=== PATIENT | male | born 1950 | race Caucasian/White ===

== ENCOUNTER 2019-04-27 17:31 | Inpatient (IN) ==
--- NOTE | 2019-04-27 17:47 | Emergency Department Note ---
Recheck HPI - General Chief Complaint: Recheck/Abnormal Lab/Rx Stated Complaint: Elevated creatnine Time Seen by Provider: 04/27/19 17:45 Source: patient, EMS Mode of arrival: EMS Limitations: no limitations - History of Present Illness HPI Narrative: 68-year-old male in ED via EMS from [facility] due to elevated creatinine of 8.1 after blood draw today. Patient states he has had no changes, no fatigue, no abdominal pain, no back pain, no headache, bowel and bladder working, had bowel movement this afternoon and urinates 4-5 times a day as he states he is on Lasix. Patient does not have shortness of breath or chest pain. MD complaint: abnormal lab Symptoms Since Prior Visit: no new symptoms Associated symptoms: none - Related Data Home Medications Medication Instructions Recorded Confirmed Carvedilol [Coreg] 12.5 mg PO BID 11/17/15 04/27/19 cholecalciferol (vitamin D3) 2,000 1,000 unit PO QDAY 02/25/16 04/27/19 unit capsule cyanocobalamin (vit B-12) 1,000 500 mcg PO QDAY 02/25/16 04/27/19 mcg tablet cyclosporine 0.05 % eye drops in a 2 drp OPHTHALMIC DAILY 02/25/16 04/28/19 dropperette oxygen 5 units INHALATION QHS 02/25/16 10/14/18 ropinirole 0.25 mg tablet 1 mg PO BID tab 02/25/16 04/27/19 pen needle, diabetic See Dose Instructions .ROUTE 02/26/16 10/14/18 .MEDSUPPLY MDD 45 units Allopurinol [Zyloprim] 200 mg PO QAM 10/09/18 04/27/19 Bisacodyl [Dulcolax] 10 mg CA DAILYP PRN 10/09/18 04/27/19 Docusate Sodium [Colace] 100 mg PO BID 10/09/18 04/27/19 Magnesium Hydroxide [Milk of 30 ml PO DAILYP PRN 10/09/18 04/27/19 Magnesia] Na Phos,M-B/Na Phos,Di-Ba [Fleets 1 dose CA DAILYP PRN 10/09/18 04/28/19 Adult] RX: Atorvastatin [Lipitor] 5 mg PO QPM 10/09/18 04/27/19 RX: Gabapentin [Neurontin] 600 mg PO TID 10/09/18 04/27/19 RX: Memantine [Namenda] 10 mg PO BID 10/09/18 04/27/19 Ferrous Sulfate/Vit C/FA [Folitab 1 each PO DAILY 10/14/18 04/27/19 500 Caplet] Pantoprazole Sodium [Protonix] 20 mg PO DAILY 10/14/18 04/28/19 Potassium Chloride [K-Tab ER] 20 meq PO DAILY 10/14/18 04/27/19 insulin detemir (U- 100) 100 2 unit SUB-Q BID ml 12/19/18 04/27/19 unit/mL subcutaneous solution lansoprazole 30 mg delayed 30 mg PO BID tab 12/19/18 04/27/19 release,disintegrating tablet misoprostol 100 mcg tablet 100 mcg PO QAM tab 12/19/18 04/27/19 multivitamin tablet 1 tab PO QAM 12/19/18 04/27/19 sertraline 100 mg tablet 150 mg PO QHS tab 12/19/18 04/27/19 Fexofenadine 60 mg PO QAM 04/27/19 04/27/19 Lisinopril [Zestril] 2.5 mg PO QAM 04/27/19 04/27/19 Loteprednol Etabonate [Lotemax] 1 drp OU QID 04/27/19 04/27/19 Nepafenac [Ilevro] 1 drp OU QAM 04/27/19 04/27/19 RX: Melatonin 10 mg PO QHS 04/27/19 04/28/19 Warfarin [Coumadin] 2.5 mg PO DAILY 04/27/19 04/27/19 clonazePAM [KlonoPIN] 0.25 mg PO QAM 04/27/19 04/27/19 hydrOXYzine [Atarax] 25 mg PO QHS 04/27/19 04/27/19 traZODone HCL [Trazodone HCl] 50 mg PO QPM 04/27/19 04/27/19 Fexofenadine [Ophelia] 60 mg PO DAILY 04/28/19 04/28/19 Furosemide [Lasix] 40 mg PO BID 04/28/19 04/28/19 Glycerin/Propylene Glycol 30 ml OP DAILY 04/28/19 04/28/19 [Artificial Tears Drops] Previous Rx's Medication Instructions Recorded insulin aspart (U-100) 100 unit/mL 10 unit SUB-Q ONCE #15 ml 07/08/16 (3 mL) subcutaneous pen Allergies Allergy/AdvReac Type Severity Reaction Status Date / Time morphine Allergy Mild Rash Verified 04/27/19 20:19 Tizanidine Allergy Unknown Unknown Verified 04/27/19 20:19 Review of Systems All systems ED: reviewed and negative except as stated. Past Medical History - Past Medical History PMF Narrative: All Active Problems (Last Updated 03/08/19 @ 13:19 by Luis Miguel Whitt DO) Eczema (Acute) Cerebral atrophy, mild (Acute) Anticoagulated on Coumadin (Chronic) Atrial fibrillation (Chronic) Dilated cardiomyopathy (Chronic) DMII (diabetes mellitus, type 2) (Chronic) Obstructive sleep apnea (Chronic) CHF (congestive heart failure), NYHA class II (Chronic) Cerebral artery occlusion with cerebral infarction (Chronic) Chronic kidney disease, stage III (moderate) (Chronic) CKD (chronic kidney disease) (Chronic) ICD (implantable cardioverter-defibrillator) in place (Chronic 10/14/10) Hypertension, essential (Chronic) Hyperlipidemia (Chronic) Obesity, morbid (Chronic) Alzheimer's dementia (Chronic) Gout (Chronic) Tachycardia (Chronic) Shortness of breath (Chronic) Neuropathy (Chronic) Hypotension (Chronic) Lower extremity edema (Chronic) Osteoarthritis (Chronic) Dizzy spells (Chronic) Depression (Chronic) Deafness (Chronic) DDD (degenerative disc disease), lumbar (Chronic) Cognitive impairment (Chronic) Anxiety (Chronic) Dyspnea on exertion (Chronic) Encounter for chronic pain management (Chronic) Osteoporosis (Chronic) Lumbar disc prolapse with compression radiculopathy (Chronic) Coronary atherosclerosis (Chronic) Peripheral vertigo (Chronic) Paresis of lower extremity (Chronic) Persistent insomnia (Chronic) Recurrent major depression (Chronic) Restless leg syndrome (Chronic) Recurrent vertigo (Chronic) Recurrent falls (Chronic) 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/12) Sinusitis, chronic (Chronic) Arthritis (Chronic) Acid reflux (Chronic) History of tobacco use (Chronic) Past Surgical History H/O carpal tunnel repair (Chronic) H/O colonoscopy (Chronic 11/20/12) H/O gastric bypass (Chronic 07/28/15) H/O right heart catheterization (Chronic 05/17/13) History of arthroscopy of both knees (Chronic) History of cardioversion (Chronic) History of cholecystectomy (Chronic) History of implantable cardioverter-defibrillator (ICD) placement (Chronic 10/25/10) History of left heart catheterization (Chronic 07/16/13) History of nasal surgery (Chronic 11/22/10) History of tonsillectomy and adenoidectomy (Chronic) Hx of cataract surgery (Chronic) S/P tendon repair (Chronic) Family History Father Arthritis Colon cancer Leukemia Mother Arthritis Family/Other Arthritis Medical history: Reports: CHF, chronic anticoagulation, CVA, dementia, DM, renal disease Surgical history ED: Reports: non-contributory - Social History smoking status: Never smoker Alcohol use: Reports: Unknown Drug use: Reports: none, unknown Physical Exam Limitations: no limitations General appearance: alert, in no apparent distress Head: atraumatic, normocephalic, normal inspection Eye: Present: normal appearance, PERRL. Absent: conjunctival injection ENT: Present: mucous membranes moist, normal external ear exam. Absent: nasal congestion Neck: Present: normal inspection. Absent: tenderness, lymphadenopathy Chest: Present: normal inspection, symmetric chest wall rise. Absent: tenderness Respiratory: Present: normal lung sounds bilaterally. Absent: respiratory distress, rales/crackles, wheezes, stridor Cardiovascular: Present: regular rate, normal rhythm. Absent: systolic murmur, diastolic murmur Abdominal: Present: soft, hypoactive bowel sounds. Absent: distention, tenderness, guarding, rebound, rigidity Extremities: Present: normal inspection. Absent: pedal edema Back: Present: normal inspection Neurological: Present: alert, oriented X3 Psychiatric: Present: normal affect, normal mood. Absent: depressed, agitated, anxious, flat affect Skin: Present: warm, dry, intact, normal color. Absent: cool, diaphoretic Course Vital Signs Temperature 97.7 F 04/27/19 17:32 Pulse Rate 79 04/27/19 17:32 Respiratory Rate 18 04/27/19 17:32 Blood Pressure 102/66 04/27/19 17:32 Pulse Oximetry (%) 95 04/27/19 17:32 Temperature 98.8 F 04/28/19 16:01 Pulse Rate 79 04/28/19 12:02 Respiratory Rate 20 04/28/19 08:01 Blood Pressure 126/89 04/28/19 16:01 Pulse Oximetry (%) 99 04/28/19 12:02 Recheck/Abnormal Lab/Rx - MDM Narrative Medical decision making narrative: Pt was provided 1 liter normal saline. Pt states he does produce urine 4-5 times a day due to his lasix. Patient's potassium 4.7, BUN 82 which is increased from 43 (4 months ago), creatinine 7.9 which is increased from 1.9 glucose 242, POC PT/INR 86.9/8.0 increased from 53.6/4.2 two days ago. Contacted Dr. Hagen who advised patient should be admitted, visit with hospitalist services, hold diuretics and FLOR inhibitor's. And he would consult. Advised this is 's patient and he advised to hydrate, hold diuretics and FLOR inhibitor's, no need to dialysis yet. Hospitalist to attend to PT/INR. He is available for consult. Consulted with who advised CT abd/pelvis and U/A to look into kidney's. - Lab Data Lab results reviewed: Yes I reviewed the patient's lab results. Result diagrams: 04/28/19 03:30 04/28/19 03:30 Lab Results 04/27/19 04/27/19 04/27/19 Range/Units 17:51 17:51 17:51 WBC 9.1 (4.5-11.0) K/mcL RBC 3.60 L (4.50-5.90) M/mcL Hgb 11.5 L (13.5-16.5) g/dL Hct 34.9 L (41.0-55.0) % MCV 97.0 (80.0-100.0) fL MCH 31.8 (26.0-34.0) pg MCHC 32.8 (31.0-36.0) g/dL RDW 15.6 H (11.5-14.5) % Plt Count 288 (140-440) K/mcL MPV 7.8 (7.4-10.4) fL Gran % 75.5 (38.0-78.0) % Lymph % (Auto) 13.4 L (15.5-49.0) % [place] % (Auto) 7.2 (1.0-12.0) % Eos % (Auto) 3.7 (0.0-7.0) % Baso % (Auto) 0.2 (0.0-2.0) % Gran # 6.9 (1.8-8.0) K/mcL Lymph # (Auto) 1.2 L (1.5-4.8) K/mcL [place] # (Auto) 0.7 (0.1-0.9) K/mcL Eos # (Auto) 0.3 (0.0-0.7) K/mcL Baso # (Auto) 0 (0.0-0.3) K/mcL Total Counted Seg Neutrophils % (38-78) % Band Neutrophils % Lymphocytes % (15-49) % Monocytes % (Manual) (1-12) % Eosinophils % (Manual) (0-7) % Platelet Estimate (NORMAL) RBC Morphology (NORMAL) ESR (0-15) mm/hr POC PT (11.9-14.5) sec PT (11.9-14.5) sec POC INR (0.9-1.2) INR (0.9-1.1) VBG Lactic Acid 1.1 (0.5-2.0) mmol/L Sodium 135 (133-145) mmol/L Potassium 4.7 (3.3-5.1) mmol/L Chloride 103 (96-108) mmol/L Carbon Dioxide 13 L (22-30) mmol/L Anion Gap 19.0 H (8-16) BUN 82 H (8-23) mg/dl Creatinine 7.9 H* (0.7-1.2) mg/dl GFR Calculation 6 Glucose 242 H (70-105) mg/dL Calcium 8.7 (8.6-10.4) mg/dl Total Bilirubin 0.3 (0.0-1.0) mg/dL AST 15 (0-37) U/l ALT 15 (0-40) U/l Alkaline Phosphatase 115 (39-117) U/L Total Protein 7.2 (5.9-8.4) gm/dL Albumin 3.3 (3.2-5.2) gm/dL Globulin 3.9 H (2.2-3.7) gm/dL Albumin/Globulin Ratio 0.8 L (1.0-2.3) Urine Color Urine Appearance Urine pH (5.0-9.0) Ur Specific [place] (1.003-1.030) Urine Protein (NEG) mg/dL Urine Glucose (UA) (NEG) mg/dL Urine Ketones (NEG) mg/dL Urine Occult Blood (<5) suzan/mcL Urine Nitrate (NEG) Urine Bilirubin (NEG) mg/dL Urine Urobilinogen (NEG) mg/dL Ur Leukocyte Esterase (NEG) /uL Urine RBC (0-1) /hpf Urine WBC (0-4) /hpf Ur Squamous Epith Cells (0-4) /hpf Urine Bacteria (0) /hpf Hyaline Casts (0-2) /lpf Urine Mucus (0) /hpf Ur Culture Indicated? Urine Eosinophils Digoxin ng/mL Digoxin Dose Digox Last Dose Time 04/27/19 04/27/19 04/27/19 Range/Units 17:51 17:51 19:36 WBC (4.5-11.0) K/mcL RBC (4.50-5.90) M/mcL Hgb (13.5-16.5) g/dL Hct (41.0-55.0) % MCV (80.0-100.0) fL MCH (26.0-34.0) pg MCHC (31.0-36.0) g/dL RDW (11.5-14.5) % Plt Count (140-440) K/mcL MPV (7.4-10.4) fL Gran % (38.0-78.0) % Lymph % (Auto) (15.5-49.0) % [place] % (Auto) (1.0-12.0) % Eos % (Auto) (0.0-7.0) % Baso % (Auto) (0.0-2.0) % Gran # (1.8-8.0) K/mcL Lymph # (Auto) (1.5-4.8) K/mcL [place] # (Auto) (0.1-0.9) K/mcL Eos # (Auto) (0.0-0.7) K/mcL Baso # (Auto) (0.0-0.3) K/mcL Total Counted Seg Neutrophils % (38-78) % Band Neutrophils % Lymphocytes % (15-49) % Monocytes % (Manual) (1-12) % Eosinophils % (Manual) (0-7) % Platelet Estimate (NORMAL) RBC Morphology (NORMAL) ESR (0-15) mm/hr POC PT > 66.0 H (11.9-14.5) sec PT 45.1 H (11.9-14.5) sec POC INR > 6.0 H* (0.9-1.2) INR 4.9 H (0.9-1.1) VBG Lactic Acid (0.5-2.0) mmol/L Sodium (133-145) mmol/L Potassium (3.3-5.1) mmol/L Chloride (96-108) mmol/L Carbon Dioxide (22-30) mmol/L Anion Gap (8-16) BUN (8-23) mg/dl Creatinine (0.7-1.2) mg/dl GFR Calculation Glucose (70-105) mg/dL Calcium (8.6-10.4) mg/dl Total Bilirubin (0.0-1.0) mg/dL AST (0-37) U/l ALT (0-40) U/l Alkaline Phosphatase (39-117) U/L Total Protein (5.9-8.4) gm/dL Albumin (3.2-5.2) gm/dL Globulin (2.2-3.7) gm/dL Albumin/Globulin Ratio (1.0-2.3) Urine Color Urine Appearance Urine pH (5.0-9.0) Ur Specific [place] (1.003-1.030) Urine Protein (NEG) mg/dL Urine Glucose (UA) (NEG) mg/dL Urine Ketones (NEG) mg/dL Urine Occult Blood (<5) suzan/mcL Urine Nitrate (NEG) Urine Bilirubin (NEG) mg/dL Urine Urobilinogen (NEG) mg/dL Ur Leukocyte Esterase (NEG) /uL Urine RBC (0-1) /hpf Urine WBC (0-4) /hpf Ur Squamous Epith Cells (0-4) /hpf Urine Bacteria (0) /hpf Hyaline Casts (0-2) /lpf Urine Mucus (0) /hpf Ur Culture Indicated? Urine Eosinophils Digoxin < 0.3 ng/mL Digoxin Dose Not Reportable Digox Last Dose Time Not Reportable 04/27/19 04/27/19 04/27/19 Range/Units 20:40 20:40 21:05 WBC (4.5-11.0) K/mcL RBC (4.50-5.90) M/mcL Hgb (13.5-16.5) g/dL Hct (41.0-55.0) % MCV (80.0-100.0) fL MCH (26.0-34.0) pg MCHC (31.0-36.0) g/dL RDW (11.5-14.5) % Plt Count (140-440) K/mcL MPV (7.4-10.4) fL Gran % (38.0-78.0) % Lymph % (Auto) (15.5-49.0) % [place] % (Auto) (1.0-12.0) % Eos % (Auto) (0.0-7.0) % Baso % (Auto) (0.0-2.0) % Gran # (1.8-8.0) K/mcL Lymph # (Auto) (1.5-4.8) K/mcL [place] # (Auto) (0.1-0.9) K/mcL Eos # (Auto) (0.0-0.7) K/mcL Baso # (Auto) (0.0-0.3) K/mcL Total Counted Seg Neutrophils % (38-78) % Band Neutrophils % Lymphocytes % (15-49) % Monocytes % (Manual) (1-12) % Eosinophils % (Manual) (0-7) % Platelet Estimate (NORMAL) RBC Morphology (NORMAL) ESR 76 H (0-15) mm/hr POC PT (11.9-14.5) sec PT (11.9-14.5) sec POC INR (0.9-1.2) INR (0.9-1.1) VBG Lactic Acid (0.5-2.0) mmol/L Sodium (133-145) mmol/L Potassium (3.3-5.1) mmol/L Chloride (96-108) mmol/L Carbon Dioxide (22-30) mmol/L Anion Gap (8-16) BUN (8-23) mg/dl Creatinine (0.7-1.2) mg/dl GFR Calculation Glucose (70-105) mg/dL Calcium (8.6-10.4) mg/dl Total Bilirubin (0.0-1.0) mg/dL AST (0-37) U/l ALT (0-40) U/l Alkaline Phosphatase (39-117) U/L Total Protein (5.9-8.4) gm/dL Albumin (3.2-5.2) gm/dL Globulin (2.2-3.7) gm/dL Albumin/Globulin Ratio (1.0-2.3) Urine Color Yellow Urine Appearance Clear Urine pH 5.0 (5.0-9.0) Ur Specific [place] 1.010 (1.003-1.030) Urine Protein Neg (NEG) mg/dL Urine Glucose (UA) Negative (NEG) mg/dL Urine Ketones Neg (NEG) mg/dL Urine Occult Blood Trace A (<5) suzan/mcL Urine Nitrate Neg (NEG) Urine Bilirubin Neg (NEG) mg/dL Urine Urobilinogen Norm (NEG) mg/dL Ur Leukocyte Esterase Trace (NEG) /uL Urine RBC 2 H (0-1) /hpf Urine WBC 19 H (0-4) /hpf Ur Squamous Epith Cells < 1 (0-4) /hpf Urine Bacteria Mod A (0) /hpf Hyaline Casts 4 H (0-2) /lpf Urine Mucus Few (0) /hpf Ur Culture Indicated? Yes Urine Eosinophils 1 % Digoxin ng/mL Digoxin Dose Digox Last Dose Time 04/27/19 Range/Units 21:10 WBC (4.5-11.0) K/mcL RBC (4.50-5.90) M/mcL Hgb (13.5-16.5) g/dL Hct (41.0-55.0) % MCV (80.0-100.0) fL MCH (26.0-34.0) pg MCHC (31.0-36.0) g/dL RDW (11.5-14.5) % Plt Count (140-440) K/mcL MPV (7.4-10.4) fL Gran % (38.0-78.0) % Lymph % (Auto) (15.5-49.0) % [place] % (Auto) (1.0-12.0) % Eos % (Auto) (0.0-7.0) % Baso % (Auto) (0.0-2.0) % Gran # (1.8-8.0) K/mcL Lymph # (Auto) (1.5-4.8) K/mcL [place] # (Auto) (0.1-0.9) K/mcL Eos # (Auto) (0.0-0.7) K/mcL Baso # (Auto) (0.0-0.3) K/mcL Total Counted 100 Seg Neutrophils % 76 (38-78) % Band Neutrophils % Not Reportable Lymphocytes % 17 (15-49) % Monocytes % (Manual) 6 (1-12) % Eosinophils % (Manual) 1 (0-7) % Platelet Estimate Normal (NORMAL) RBC Morphology Normal (NORMAL) ESR (0-15) mm/hr POC PT (11.9-14.5) sec PT (11.9-14.5) sec POC INR (0.9-1.2) INR (0.9-1.1) VBG Lactic Acid (0.5-2.0) mmol/L Sodium (133-145) mmol/L Potassium (3.3-5.1) mmol/L Chloride (96-108) mmol/L Carbon Dioxide (22-30) mmol/L Anion Gap (8-16) BUN (8-23) mg/dl Creatinine (0.7-1.2) mg/dl GFR Calculation Glucose (70-105) mg/dL Calcium (8.6-10.4) mg/dl Total Bilirubin (0.0-1.0) mg/dL AST (0-37) U/l ALT (0-40) U/l Alkaline Phosphatase (39-117) U/L Total Protein (5.9-8.4) gm/dL Albumin (3.2-5.2) gm/dL Globulin (2.2-3.7) gm/dL Albumin/Globulin Ratio (1.0-2.3) Urine Color Urine Appearance Urine pH (5.0-9.0) Ur Specific [place] (1.003-1.030) Urine Protein (NEG) mg/dL Urine Glucose (UA) (NEG) mg/dL Urine Ketones (NEG) mg/dL Urine Occult Blood (<5) suzan/mcL Urine Nitrate (NEG) Urine Bilirubin (NEG) mg/dL Urine Urobilinogen (NEG) mg/dL Ur Leukocyte Esterase (NEG) /uL Urine RBC (0-1) /hpf Urine WBC (0-4) /hpf Ur Squamous Epith Cells (0-4) /hpf Urine Bacteria (0) /hpf Hyaline Casts (0-2) /lpf Urine Mucus (0) /hpf Ur Culture Indicated? Urine Eosinophils Digoxin ng/mL Digoxin Dose Digox Last Dose Time - Radiology Data Radiology results reviewed: Yes I reviewed the patient's radiology results. Chest/abdomen/pelvis CT without contrast read by [facility] Impression bilateral lower lobe stranding densities and groundglass opacification, could represent atelectasis, edema or infection.: Neck air fluid levels, which is nonspecific and can be seen with enterocolitis, and ileus, or other diarrhea producing process. Nonobstructing left renal calculi. Disposition Pt seen by [employer] ATTENDANT/PA only: Yes Clinical Impression: DMII (diabetes mellitus, type 2) Qualifiers: Diabetes mellitus alf insulin use: with alf use Diabetes mellitus complication status: with kidney complications Diabetes mellitus complication detail: with chronic kidney disease Chronic kidney disease stage: stage 4 ([facility]) Qualified Code(s): E11.22 - Type 2 diabetes mellitus with diabetic chronic kidney disease Disposition: Xfer As Inpt ([facility]) Condition: Good Time of Disposition: 16:40
[2019-04-27] MEDS: 0.9 % SODIUM CHLORIDE 1,000 ML IV SCH ×2 (18:03→21:26)
[2019-04-27 18:28] LABS: Basophils # (Auto) 0 K/mcL (0.0-0.3); Basophils % (Auto) 0.2 % (0.0-2.0); Eosinophils # (Auto) 0.3 K/mcL (0.0-0.7); Eosinophils % (Auto) 3.7 % (0.0-7.0); Granulocytes % (Auto) 75.5 % (38.0-78.0); Hematocrit 34.9 % (41.0-55.0); Hemoglobin 11.5 g/dL (13.5-16.5); Lymphocytes # (Auto) 1.2 K/mcL (1.5-4.8); Lymphocytes % (Auto) 13.4 % (15.5-49.0); Mean Corpuscular HGB Conc 32.8 g/dL (31.0-36.0); Mean Platelet Volume 7.8 fL (7.4-10.4); Monocytes # (Auto) 0.7 K/mcL (0.1-0.9); Monocytes % (Auto) 7.2 % (1.0-12.0); Platelet Count 288 K/mcL (140-440); Red Cell Distribution Width 15.6 % (11.5-14.5); WBC 9.1 K/mcL (4.5-11.0)
[2019-04-27 18:48] LABS: ALT/SGPT 15 U/l (0-40); AST/SGOT 15 U/l (0-37); Albumin 3.3 gm/dL (3.2-5.2); Albumin/Globulin Ratio 0.8 (1.0-2.3); Alkaline Phosphatase 115 U/L (39-117); Bilirubin,Total 0.3 mg/dL (0.0-1.0); Blood Urea Nitrogen 82 mg/dl (8-23); Calcium 8.7 mg/dl (8.6-10.4); Carbon Dioxide 13 mmol/L (22-30); Chloride 103 mmol/L (96-108); Globulin 3.9 gm/dL (2.2-3.7); Glomerular Filtration Rate 6; Glucose 242 mg/dL (70-105)
[2019-04-27 19:42] LABS: Digoxin < 0.3 ng/mL
[2019-04-27 19:52] LABS: POC INR > 6.0 (0.9-1.2); POC Pro Time > 66.0 sec (11.9-14.5)
[2019-04-27 21:02] LABS: INR 4.9 (0.9-1.1); Prothrombin Time 45.1 sec (11.9-14.5)
[2019-04-27 21:34] LABS: Appearance,Urine CLEAR; Bacteria,Urine MOD /hpf (0); Bilirubin,Urine NEG (NEG); Color,Urine YELLOW; Culture Indicated,Urine YES; Glucose,Urine (UA) NEGATIVE (NEG); Ketones,Urine NEG (NEG); Leukocyte Esterase,Urine TRACE /uL (NEG); Mucus,Urine FEW /hpf (0); Nitrate,Urine NEG (NEG); Protein,Urine NEG (NEG); Urine Blood TRACE ery/mcL (<5); Urine Hyaline Cast 4 /lpf (0-2); Urine RBC 2 /hpf (0-1); Urine Squamous Epithelial Cell < 1 /hpf (0-4); Urine WBC 19 /hpf (0-4); Urobilinogen,Urine NORM (NEG)
[2019-04-27 21:56] LABS: Eosinophils % (Manual) 1 % (0-7); Lymphocytes % 17 % (15-49); Monocytes % (Manual) 6 % (1-12); Platelet Estimate NORMAL (NORMAL); RBC Morphology NORMAL (NORMAL); Segmented Neutrophils % 76 % (38-78)
[2019-04-27] MEDS ORDERED: 0.9 % SODIUM CHLORIDE 500 ML IV ONE (22:03)
--- NOTE | 2019-04-27 22:15 | Internal Med History&Physical ---
Medical - H&P: [facility] Patient information: Note initiated : 04/27/19 at 10:12 pm Service Date, if different from initiated Date: [] Patient: Eliezer Mahmood a 68 y/o M admitted on for Elevated creatnine. Chief Complaint: [] History of present illness: Mr. Mahmood is a 68 year old M Who was sent in from the intermediate facility for abnormal labs. His creatinine was found to be 7.9 with a BUN of 83. He is asymptomatic. Has no nausea or vomiting, no lethargy or or altered mental status of any kind. States he is urinating okay and denies any hematuria. Denies flank pain or abdominal pain. No chest pain shortness of breath. Denies new medications except for some drops for his eyes. He takes Lasix twice daily but says that has not changed recently. Denies edema his legs, states sometimes he gets swelling in his ankles but not very often. Did have a rash beginning of the month which was there for a month or so but that has resolved. In the ED he had a work-up including CT abdomen pelvis which showed no acute pathology, it was without contrast. Is acidotic with bicarb of 13. Vital signs are stable. Actiq acidosis. Urine with trace blood and hyaline casts. Urine eosinophils unremarkable Case was discussed with Dr. Capellan. Who will follow and patient started on bicarb drip. Old records report in July 2018 he was found unresponsive with a creatinine of 8 and a BUN of 90. He was flown to [place] at that time from [facility] as they did not have any ICU beds available or ability to do emergent dialysis. Patient does not recall how long he was up there and he does not believe he was on hemodialysis or is ever been. His kidneys seem to improve and it appears his baseline creatinine is around 2-2-1/2 as of the past couple months prior to that seem to be close to 2 usually. Review of Systems: Pertinent positives as above. Denies headache/fever/chills/nausea/vomiting/chest or abdominal pain/cough/dyspnea/diarrhea. Remaining 10 point review of system reviewed negative Medical - H&P: [facility] Medical history: Medical History (Last Updated 03/08/19 @ 13:19 by Luis Miguel Whitt DO) Anticoagulated on Coumadin (Chronic) Atrial fibrillation (Chronic) Dilated cardiomyopathy (Chronic) DMII (diabetes mellitus, type 2) (Chronic) Obstructive sleep apnea (Chronic) CHF (congestive heart failure), NYHA class II (Chronic) Cerebral artery occlusion with cerebral infarction (Chronic) Chronic kidney disease, stage III (moderate) (Chronic) CKD (chronic kidney disease) (Chronic) ICD (implantable cardioverter-defibrillator) in place (Chronic 10/14/10) Hypertension, essential (Chronic) Hyperlipidemia (Chronic) Obesity, morbid (Chronic) Alzheimer's dementia (Chronic) Gout (Chronic) Tachycardia (Chronic) Shortness of breath (Chronic) Neuropathy (Chronic) Hypotension (Chronic) Lower extremity edema (Chronic) Osteoarthritis (Chronic) Dizzy spells (Chronic) Depression (Chronic) Deafness (Chronic) DDD (degenerative disc disease), lumbar (Chronic) Cognitive impairment (Chronic) Anxiety (Chronic) Dyspnea on exertion (Chronic) Encounter for chronic pain management (Chronic) Osteoporosis (Chronic) Lumbar disc prolapse with compression radiculopathy (Chronic) Coronary atherosclerosis (Chronic) Peripheral vertigo (Chronic) Paresis of lower extremity (Chronic) Persistent insomnia (Chronic) Recurrent major depression (Chronic) Restless leg syndrome (Chronic) Recurrent vertigo (Chronic) Recurrent falls (Chronic) 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/12) Sinusitis, chronic (Chronic) Arthritis (Chronic) Acid reflux (Chronic) History of tobacco use (Chronic) Acute metabolic encephalopathy (Resolved) Bacterial liver abscess (Resolved) Blurry vision (Resolved) Complicated UTI (urinary tract infection) (Resolved) Contusion of scalp (Resolved) Contusion of shoulder region (Resolved) Costochondral pain (Resolved) Double vision (Resolved) Exacerbation of chronic back pain (Resolved) History of gastroesophageal reflux (GERD) (Resolved) History of head injury (Resolved) History of pneumonia (Resolved) Light-headedness (Resolved) Lumbar strain (Resolved) Muscle strain of lower leg (Resolved) Pain in both lower legs (Resolved) Rib pain on left side (Resolved) Sepsis (Resolved) UTI (urinary tract infection) (Resolved) Heart trouble (Inactive) Joint pain (Inactive) Weight gain (Inactive) Past Surgical History H/O carpal tunnel repair (Chronic) H/O colonoscopy (Chronic 11/20/12) H/O gastric bypass (Chronic 07/28/15) H/O right heart catheterization (Chronic 05/17/13) History of arthroscopy of both knees (Chronic) History of cardioversion (Chronic) History of cholecystectomy (Chronic) History of implantable cardioverter-defibrillator (ICD) placement (Chronic 10/25/10) History of left heart catheterization (Chronic 07/16/13) History of nasal surgery (Chronic 11/22/10) History of tonsillectomy and adenoidectomy (Chronic) Hx of cataract surgery (Chronic) S/P tendon repair (Chronic) Family History Father Arthritis Colon cancer Leukemia Mother Arthritis Family/Other Arthritis Social History (Last Updated 12/19/18 @ 11:12 by Maryan Hagen MD) Patient quit smoking 40 years ago does not use alcohol ablates with a walker resides at [facility] Medical - H&P: Meds Home Medications Medication Instructions Recorded Confirmed Type Carvedilol [Coreg] 12.5 mg PO BID 11/17/15 04/27/19 History cholecalciferol (vitamin D3) 2,000 1,000 unit PO QDAY 02/25/16 04/27/19 History unit capsule cyanocobalamin (vit B-12) 1,000 500 mcg PO QDAY 02/25/16 04/27/19 History mcg tablet cyclosporine 0.05 % eye drops in a 2 drp OPHTHALMIC DAILY 02/25/16 12/19/18 History dropperette oxygen 5 units INHALATION QHS 02/25/16 10/14/18 History ropinirole 0.25 mg tablet 1 mg PO BID tab 02/25/16 04/27/19 History pen needle, diabetic See Dose Instructions .ROUTE 02/26/16 10/14/18 History .MEDSUPPLY MDD 45 units insulin aspart (U-100) 100 unit/mL 10 unit SUB-Q ONCE #15 ml 07/08/16 12/19/18 Rx (3 mL) subcutaneous pen Allopurinol [Zyloprim] 200 mg PO QAM 10/09/18 04/27/19 History Atorvastatin [Lipitor] 5 mg PO QPM 10/09/18 04/27/19 History Bisacodyl [Dulcolax] 10 mg OH DAILYP PRN 10/09/18 04/27/19 History Docusate Sodium [Colace] 100 mg PO BID 10/09/18 04/27/19 History Gabapentin [Neurontin] 600 mg PO TID 10/09/18 04/27/19 History Lactobacillus [Culturelle] 1 cap PO DAILY 10/09/18 12/19/18 History Magnesium Hydroxide [Milk of 30 ml PO DAILYP PRN 10/09/18 04/27/19 History Magnesia] Memantine [Namenda] 10 mg PO BID 10/09/18 04/27/19 History Na Phos,M-B/Na Phos,Di-Ba [Fleets 1 dose [place] DAILYP PRN 10/09/18 12/19/18 History Adult] Temazepam [Restoril] 7.5 mg PO QHS 10/09/18 12/19/18 History Digoxin [Lanoxin] 62.5 mcg PO DAILY #30 tab 10/14/18 12/19/18 Rx Ferrous Sulfate/Vit C/FA [Folitab 1 each PO DAILY 10/14/18 04/27/19 History 500 Caplet] Pantoprazole Sodium [Protonix] 20 mg PO DAILY 10/14/18 12/19/18 History Potassium Chloride [K-Tab ER] 20 meq PO DAILY 10/14/18 04/27/19 History furosemide 20 mg tablet 40 mg PO BID tab 12/19/18 04/27/19 History insulin detemir (U- 100) 100 2 unit SUB-Q BID ml 12/19/18 04/27/19 History unit/mL subcutaneous solution lansoprazole 30 mg delayed 30 mg PO BID tab 12/19/18 04/27/19 History release,disintegrating tablet misoprostol 100 mcg tablet 100 mcg PO QAM tab 12/19/18 04/27/19 History multivitamin tablet 1 tab PO QAM 12/19/18 04/27/19 History sertraline 100 mg tablet 150 mg PO QHS tab 12/19/18 04/27/19 History Fexofenadine 60 mg PO QAM 04/27/19 04/27/19 History Lisinopril [Zestril] 2.5 mg PO QAM 04/27/19 04/27/19 History Loteprednol Etabonate [Lotemax] 1 drp OU QID 04/27/19 04/27/19 History Melatonin 10 mg PO 04/27/19 History Nepafenac [Ilevro] 1 drp OU QAM 04/27/19 04/27/19 History Warfarin [Coumadin] 2.5 mg PO DAILY 04/27/19 04/27/19 History clonazePAM [KlonoPIN] 0.25 mg PO QAM 04/27/19 04/27/19 History hydrOXYzine [Atarax] 25 mg PO QHS 04/27/19 04/27/19 History traZODone HCL [Trazodone HCl] 50 mg PO QPM 04/27/19 04/27/19 History Allergies Allergy/AdvReac Type Severity Reaction Status Date / Time morphine Allergy Mild Rash Verified 04/27/19 20:19 Tizanidine Allergy Unknown Unknown Verified 04/27/19 20:19 Medical - H&P: Exam - Constitutional Vitals: Temp Pulse Resp BP Pulse Ox 97.7 F 80 16 114/73 96 04/27/19 17:32 04/27/19 20:00 04/27/19 20:00 04/27/19 20:00 04/27/19 20:00 Exam: General: Alert, Awake, No acute Distress Eyes/N/T: EOMI, PEERL, DMM Head/Neck: neck supple, normocephalic atraumatic CV: RRR, No murmurs, normal s1/s2 Pulm: Clear b/l, no wheezing/rhonchi/rales Abd: soft, nontender, +BS x4 Ext: no clubbing/cyanosis/edema Neuro: Alert, no focal deficits, moves all extremities, CN 2-12 grossly intact, symmetrical strength b/l upper/lower, sensations intact b/l upper/lower Skin: warm/dry Medical - H&P: Reslt - Labs CBC & Chem 7: 04/27/19 17:51 04/27/19 17:51 Labs: Short CBC 04/27/19 Range/Units 17:51 WBC 9.1 (4.5-11.0) K/mcL Hgb 11.5 L (13.5-16.5) g/dL Hct 34.9 L (41.0-55.0) % Plt Count 288 (140-440) K/mcL BMP 04/27/19 17:51 Sodium 135 Potassium 4.7 Chloride 103 Carbon Dioxide 13 L BUN 82 H Creatinine 7.9 H* Glucose 242 H Calcium 8.7 Liver Function 04/27/19 Range/Units 17:51 Total Bilirubin 0.3 (0.0-1.0) mg/dL AST 15 (0-37) U/l ALT 15 (0-40) U/l Alkaline Phosphatase 115 (39-117) U/L Albumin 3.3 (3.2-5.2) gm/dL Urine 04/27/19 Range/Units 20:40 Urine Color Yellow Urine Appearance Clear Urine pH 5.0 (5.0-9.0) Ur Specific [place] 1.010 (1.003-1.030) Urine Protein Neg (NEG) mg/dL Urine Glucose (UA) Negative (NEG) mg/dL - Impressions CT abdomen pelvis no acute pathology Medical - H&P: A/P - Narrative A/P Narrative: A: *BRIELLE on CKD IIIb-IV: -Able to urinate and potassium within normal limits -urine eos unremarkable *Metabolic acidosis: 2/2 above *Coagulopathy: 2/2 warfarin *Afib: On warfarin, digoxin, carvedilol *Dilated CMP (20%) with ACID/PPM: BB/lasix/Dig *h/o CVA: *DM: A1c 6.5 *HTN: *Anemia, chronic: *Depression: *Memory issues/?Dementia: On Namenda *GERD: * P: -bicarb gtt at gentle rate given CMP -Capellan consulted -renal u/s -monitor i/o's, weights -Lasix and lisinopril held -Renally dose gabapentin and allopurinol -Monitor digoxin level and renal failure -PPI switch to H2 given renal failure -Basal and SSI -cont statin -pt/ot -ppx: Supratherapeutic on warfarin at this time (holding)
[2019-04-27] MEDS ORDERED: DEXTROSE 31 GM ORAL.SUSP PO PRN (22:39)
[2019-04-27] MEDS ORDERED: SODIUM BICARBONATE VIAL 150 MEQ in WATER FOR INJECTION,STERILE 1,000 ML IV SCH (22:39)
[2019-04-27] MEDS ORDERED: BISACODYL 10 MG SUPP.RECT PR PRN ×2 (22:39)
[2019-04-27] MEDS ORDERED: DEXTROSE 50% 50 ML VIAL IV PRN (22:39)
[2019-04-27] MEDS ORDERED: IPRATROPIUM/ALBUTEROL 3 ML AMPUL.NEB NEB PRN (22:39)
[2019-04-27] MEDS ORDERED: PROMETHAZINE 25 MG/ML VIAL IV PRN (22:39)
[2019-04-27] MEDS ORDERED: ONDANSETRON 4 MG/2 ML VIAL IV PRN (22:39)
[2019-04-27] MEDS ORDERED: SODIUM BICARBONATE 50 MEQ/50 ML VIAL ONE (23:00)
[2019-04-27] MEDS: 0.9 % SODIUM CHLORIDE 10 ML SYRINGE IV SCH (23:42)
[2019-04-28 04:47] LABS: Basophils # (Auto) 0 K/mcL (0.0-0.3); Basophils % (Auto) 0.3 % (0.0-2.0); Eosinophils # (Auto) 0.5 K/mcL (0.0-0.7); Eosinophils % (Auto) 4.5 % (0.0-7.0); Granulocytes % (Auto) 68.8 % (38.0-78.0); Hematocrit 33.1 % (41.0-55.0); Hemoglobin 10.9 g/dL (13.5-16.5); INR 5.2 (0.9-1.1); Lymphocytes # (Auto) 1.7 K/mcL (1.5-4.8); Lymphocytes % (Auto) 16.7 % (15.5-49.0); Mean Cell Volume 97.4 fL (80.0-100.0); Monocytes % (Auto) 9.7 % (1.0-12.0); Platelet Count 286 K/mcL (140-440); Prothrombin Time 46.9 sec (11.9-14.5); RBC 3.39 M/mcL (4.50-5.90); WBC 10.2 K/mcL (4.5-11.0)
[2019-04-28 04:56] LABS: ALT/SGPT 13 U/l (0-40); AST/SGOT 11 U/l (0-37); Albumin 3.1 gm/dL (3.2-5.2); Albumin/Globulin Ratio 0.9 (1.0-2.3); Alkaline Phosphatase 106 U/L (39-117); Bilirubin,Direct < 0.2 mg/dL (0.0-0.3); Bilirubin,Total 0.4 mg/dL (0.0-1.0); Blood Urea Nitrogen 78 mg/dl (8-23); Calcium 8.7 mg/dl (8.6-10.4); Carbon Dioxide 14 mmol/L (22-30); Chloride 108 mmol/L (96-108); Globulin 3.5 gm/dL (2.2-3.7); Glomerular Filtration Rate 7; Glucose 71 mg/dL (70-105); Lactate Dehydrogenase 159 U/L (94-250); Phosphorous 7.5 mg/dL (2.7-4.5); Triglycerides 92 mg/dl (<150); Uric Acid 4.8 mg/dL (2.5-8.0)
[2019-04-28] MEDS: 0.9 % SODIUM CHLORIDE 10 ML SYRINGE IV SCH ×3 (05:32→21:32)
--- NOTE | 2019-04-28 07:01 | Ultrasound Report ---
CLINICAL INFORMATION: Renal failure TECHNIQUE: Grayscale and color flow Doppler spectral imaging COMPARISON: CT scan dated 04/27/2019 FINDINGS: Right kidney measures 9.9 x 5.5 x 6.3 cm. No solid or cystic right renal mass. There is no hydronephrosis. No calculi identified. Renal cortex is echogenic consistent with medical renal disease. Left kidney measures 11.0 x 4.9 x 5.4 cm. There is a single 13 mm cyst. No solid mass. No hydronephrosis. CT scan demonstrated small nonobstructing calculi. These are not identified presently. Left renal cortex is echogenic consistent with medical renal disease Urinary bladder is not distended. IMPRESSION: 1. Echogenic renal cortex consistent with medical renal disease 2. No hydronephrosis Interpreted and Authenticated by: Georges Conn 04/28/19
--- NOTE | 2019-04-28 07:05 | Internal Med Progress Note ---
Medical - PN: Subj Patient information: Note initiated : 04/28/19 at 7:04 am Service Date, if different from initiated Date: [] Patient: Eliezer Mahmood 68 y/o M admitted on 04/27/19 for Elevated creatnine. Chief Complaint: [] Interval history: Mr. Mahmood is a 68 year old M Who was sent in from the nursing home facility for abnormal labs. His creatinine was found to be 7.9 with a BUN of 83. He is asymptomatic. Has no nausea or vomiting, no lethargy or or altered mental status of any kind. States he is urinating okay and denies any hematuria. Denies flank pain or abdominal pain. No chest pain shortness of breath. Denies new medications except for some drops for his eyes. He takes Lasix twice daily but says that has not changed recently. Denies edema his legs, states sometimes he gets swelling in his ankles but not very often. Did have a rash beginning of the month which was there for a month or so but that has resolved. In the ED he had a work-up including CT abdomen pelvis which showed no acute pathology, it was without contrast. Is acidotic with bicarb of 13. Vital signs are stable. Actiq acidosis. Urine with trace blood and hyaline casts. Urine eosinophils unremarkable Case was discussed with Dr. Capellan. Who will follow and patient started on bicarb drip. Old records report in July 2018 he was found unresponsive with a creatinine of 8 and a BUN of 90. He was flown to [place] at that time from [facility] as they did not have any ICU beds available or ability to do emergent dialysis. Patient does not recall how long he was up there and he does not believe he was on hemodialysis or is ever been. His kidneys seem to improve and it appears his baseline creatinine is around 2-2-1/2 as of the past couple months prior to that seem to be close to 2 usually. 04/28 Slept well. No complaints. Urinating. Hematuria and Bhakta bag today, ? Bhakta trauma. Not much improvement in creatinine today. Bicarb drip running slowly. Review of Systems: denies headache/fever/chills/nausea/vomiting/chest or abdominal pain/cough/dyspnea/diarrhea. Otherwise see above. - Constitutional Vitals: Vital Signs Temp Pulse Resp BP Pulse Ox 98.0 F 80 18 102/62 91 08/24/19 04:01 04/28/19 06:01 04/28/19 06:01 04/28/19 06:01 04/28/19 06:01 Period Temp Pulse Resp BP Sys/[place] Pulse Ox Last 24 Hr 97.5 F-98.4 F 79-98 14-22 97-139/60-107 88-100 Intake and Output 04/27/19 04/28/19 04/28/19 21:59 05:59 13:59 Intake Total 1000 500 Output Total 1200 120 Balance 1000 -700 -120 Weight 102.512 kg 99.932 kg Intake & Output: Intake & Output 04/27/19 04/28/19 04/28/19 21:59 05:59 13:59 Intake Total 1000 500 Output Total 1200 120 Balance 1000 -700 -120 Weight 102.512 kg 99.932 kg Intake: IV 1000 500 Sodium Chloride 0.9% 1,000 ml @ 1000 500 mls/hr IV .Q2H JEM Rx#: [id number] Sodium Chloride 0.9% 500 ml @ 500 Wide Open IV BOLUS ONE Rx#: [id number] Output: Urine Catheter Amount 1200 120 Other: Urine Appearance Sediment Sediment Uretheral (Bhakta) Clear Clear Urine Color Blood Tinged Blood Tinged Uretheral (Bhakta) Pale Bright Yellow Exam: General: Alert, Awake, No acute Distress Eyes/N/T: EOMI, Head/Neck: neck supple, CV: RRR, No murmurs, Pulm: Clear b/l, no wheezing/rhonchi/rales Abd: soft, nontender, +BS x4 Ext: no clubbing/cyanosis/edema Neuro: Alert, no focal deficits, moves all extremities, Skin: warm/dry Medical - PN: Obj Da - Labs CBC & Chem 7: 04/28/19 03:30 04/28/19 03:30 Labs: Abnormal Lab Results 04/28/19 04/28/19 04/28/19 03:30 03:30 03:30 RBC 3.39 L Hgb 10.9 L Hct 33.1 L RDW 15.0 H Lymph % (Auto) Lymph # (Auto) Catron # (Auto) 1.0 H ESR POC PT PT 46.9 H POC INR INR 5.2 H Carbon Dioxide 14 L Anion Gap 18.0 H BUN 78 H Creatinine 7.7 H* Glucose Phosphorus 7.5 H* Albumin 3.1 L Globulin Albumin/Globulin Ratio 0.9 L Urine Occult Blood Urine RBC Urine WBC Urine Bacteria Hyaline Casts 04/27/19 04/27/19 04/27/19 21:05 20:40 19:36 RBC Hgb Hct RDW Lymph % (Auto) Lymph # (Auto) Catron # (Auto) ESR 76 H POC PT > 66.0 H PT POC INR > 6.0 H* INR Carbon Dioxide Anion Gap BUN Creatinine Glucose Phosphorus Albumin Globulin Albumin/Globulin Ratio Urine Occult Blood Trace A Urine RBC 2 H Urine WBC 19 H Urine Bacteria Mod A Hyaline Casts 4 H 04/27/19 04/27/19 04/27/19 17:51 17:51 17:51 RBC 3.60 L Hgb 11.5 L Hct 34.9 L RDW 15.6 H Lymph % (Auto) 13.4 L Lymph # (Auto) 1.2 L Catron # (Auto) ESR POC PT PT 45.1 H POC INR INR 4.9 H Carbon Dioxide 13 L Anion Gap 19.0 H BUN 82 H Creatinine 7.9 H* Glucose 242 H Phosphorus Albumin Globulin 3.9 H Albumin/Globulin Ratio 0.8 L Urine Occult Blood Urine RBC Urine WBC Urine Bacteria Hyaline Casts Meds: Medications Acetaminophen (Tylenol) 650 mg PO Q4-6HP PRN PRN Reason: PAIN/FEVER > 101 Albuterol/Ipratropium (Duoneb) 3 ml NEB Q6HRT PRN PRN Reason: Bronchospasm Allopurinol (Zyloprim) 50 mg PO QAM JEM Bisacodyl (Dulcolax) 10 mg MA Q2-3DAYS PRN PRN Reason: Constipation Bisacodyl (Dulcolax) 10 mg MA DAILYP PRN PRN Reason: Constipation Clonazepam (Klonopin) 0.25 mg PO QAM JEM Dextrose (Dextrose 50%) 0 ml IV UD PRN PRN Reason: Hypoglycemia Diagnostic Test (Pha) (Accu-Chek) 1 each FS ACHS JEM Docusate Sodium (Colace) 100 mg PO BID JEM Famotidine (Pepcid) 20 mg IV HS JEM Gabapentin (Neurontin) 200 mg PO QHS JEM Glucose (Insta-Glucose) 15 gm PO PRN PRN PRN Reason: Hypoglycemia Hydroxyzine HCl (Atarax) 25 mg PO QHS [facility] Sodium Bicarbonate 150 meq/ (Sterile Water) 1,150 mls @ 60 mls/hr IV Q20H [facility] Stop: 04/28/19 17:48 Last Admin: 04/27/19 23:41 Dose: 60 mls/hr Documented by: Insulin Human Lispro (Humalog) 0 unit SQ ACHS [facility]; Protocol Memantine (Namenda) 10 mg PO BID [facility] Misoprostol (Cytotec) 100 mcg PO QAM [facility] Mupirocin (Bactroban Oint 2%) 1 dose NARES BID [facility] Non-Formulary Medication (Atorvastatin [Lipitor]) 5 mg PO QPM [facility] Non-Formulary Medication (Carvedilol [Coreg]) 12.5 mg PO BID [facility] Non-Formulary Medication (Insulin Detemir [Levemir]) 2 unit SUB-Q BID [facility] Non-Formulary Medication (Loteprednol Etabonate [Lotemax]) 1 drp OU QID [facility] Non-Formulary Medication (Nepafenac [Ilevro]) 1 drp OU QAM [facility] Ondansetron HCl (Zofran) 4 mg IV Q4-6HP PRN PRN Reason: Nausea And Vomiting Promethazine HCl (Phenergan) 12.5 mg IV Q4-6HP PRN PRN Reason: Nausea And Vomiting Ropinirole HCl (Requip) 1 mg PO BID [facility] Sertraline HCl (Zoloft) 150 mg PO QHS [facility] Sodium Chloride (Saline Flush) 10 ml IV Q8 [facility] Last Admin: 04/28/19 05:32 Dose: Not Given Documented by: Trazodone HCl (Desyrel) 50 mg PO QPM [facility] Warfarin Sodium (Coumadin Per Pharmacy) 1 order PO DAILY@1400 [facility] Medical - PN: A/P - Time Spent With Patient Total time spent is greater than 50% in coordination of care (as documented) at patient's floor/unit and/or counseling patient: - Narrative A/P Narrative: A: *BRIELLE on CKD IIIb-IV: -good UOP -urine eos unremarkable, imaging unremarkable *Metabolic acidosis: 2/2 above *Coagulopathy: 2/2 warfarin *Hematuria: ?bhakta trauma in setting of supratherapeutic INR. original UA on trace blood and 2 PRBC *Afib: On warfarin, digoxin, carvedilol *Dilated CMP (20%) with ACID/PPM: BB/lasix/Dig *h/o CVA: *DM: A1c 6.5 *HTN: home coreg/lisinopril *Anemia, chronic: *Depression: *Alzheimers Dementia: On Namenda *GERD: * P: -bicarb gtt at gentle rate given CMP, did get 500ml bolus in ED -Dr. Capellan following, further recs per neprhology -monitor i/o's, weights -Lasix and lisinopril held -cont BB at lower dose to allow increase perfusion pressures -Renally dose gabapentin and allopurinol -Monitor digoxin level given renal failure -PPI switch to H2 given renal failure -Basal and SSI -cont statin -pt/ot -ppx: Supratherapeutic on warfarin at this time (holding - pharmacy to redose when appropriate) full code Medical - PN: Qual - VTE Deep Vein Thrombosis/Pulmonary Embolism Present on Admission: No
--- NOTE | 2019-04-28 07:26 | Cat Scan Report ---
CLINICAL INFORMATION: Renal failure TECHNIQUE: Axial noncontrast enhanced images through the chest, abdomen, pelvis. Sagittal and coronal reformatted images COMPARISON: Previous abdominal CT scans dated 08/25/2018, 07/20/2018 FINDINGS: CHEST: No parenchymal consolidation. There is mild parenchymal stranding at both lung bases. Findings are nonspecific. No definite evidence for pneumonia. There is no pulmonary parenchymal mass. No significant bronchiectasis. There is no honeycombing. There is a left-sided cardiac pacemaker. There is extensive coronary artery calcification. No pathologic hilar or mediastinal lymphadenopathy. There is no axillary or supraclavicular adenopathy. There is no pleural fluid or pericardial fluid. Mild T11 compression deformity. This was present on previous examination dated 08/25/2018. No acute compression fractures. No rib or sternal lesions. ABDOMEN, PELVIS: Liver is negative to the limits of noncontrast enhanced examination. Patient has a history of hepatic abscess. No evidence for recurrent abscess. Liver contour is smooth. There is no ascites. Gallbladder is not identified. No dilated bile ducts. Spleen is not enlarged. No pancreatic mass. No peripancreatic abnormality. Adrenal glands are negative. There is a nonobstructing 6 mm left midpole calculus. No right renal calculi. There is no hydronephrosis. No detectable renal mass on this noncontrast-enhanced examination. There is no ureteral calculus. No hydroureter. No bladder stone. Patient has had bariatric surgery. 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 No anastomotic obstruction. Colon is negative. There is no diverticulitis. No detectable colonic mass. No appendicitis. There is no mechanical small bowel obstruction There is no free intraperitoneal fluid. No intra-abdominal abscess. No pneumoperitoneum. No biliary or portal venous gas. There is calcification of the abdominal aorta. No abdominal aortic aneurysm. No retroperitoneal or mesenteric adenopathy No lumbar compression fracture. There is degenerative disc narrowing at L4-5. No sacral fracture. No pelvic or hip fracture. This examination was initially interpreted by [facility] IMPRESSION: 1. Nonobstructing left renal calculus 2. Atherosclerotic disease. No abdominal aortic aneurysm 3. No hydronephrosis. Interpreted and Authenticated by: Georges Conn 04/28/19
[2019-04-28] MEDS ORDERED: LABETALOL 5 MG/ML ML IV PRN (07:35)
[2019-04-28] MEDS: ACETAMINOPHEN 325 MG TABLET PO PRN ×2 (08:21→21:30)
[2019-04-28] MEDS: INSULIN LISPRO 1 UNIT/0.01 ML UNIT SQ SCH ×4 (08:33→21:29)
[2019-04-28] MEDS ORDERED: CARVEDILOL 6.25 MG TABLET PO SCH (09:00)
[2019-04-28] MEDS: MEMANTINE 10 MG TABLET PO SCH ×2 (09:34→21:30)
[2019-04-28] MEDS: ALLOPURINOL 100 MG TABLET PO SCH (09:34)
[2019-04-28] MEDS: clonazePAM 0.5 MG TABLET PO SCH (09:34)
[2019-04-28] MEDS: rOPINIRole 1 MG TABLET PO SCH ×2 (09:34→21:37)
[2019-04-28] MEDS: MISOPROSTOL 100 MCG TABLET PO SCH (09:34)
[2019-04-28] MEDS: MUPIROCIN OINT 2% 22GM NARES SCH ×2 (09:34→21:28)
[2019-04-28] MEDS: POLYVINYL ALCOHOL OPHTH DROPS 15ML BOTTLE OU SCH (09:34)
[2019-04-28] MEDS: DOCUSATE SODIUM 100 MG CAPSULE PO SCH ×2 (09:34→21:29)
[2019-04-28] MEDS: LOTEPREDNOL ETABONATE 0.5% OU SCH ×4 (09:35→21:32)
[2019-04-28] MEDS: NEPAFENAC 0.3% OU SCH (09:35)
[2019-04-28 10:50] LABS: Digoxin < 0.3 ng/mL
[2019-04-28] MEDS: INSULIN GLARGINE, HUMAN 1 UNIT/0.01 ML SQ SCH ×2 (11:05→21:29)
--- NOTE | 2019-04-28 11:41 | Nephrology Progress Note ---
Subjective Patient information: Note initiated : 04/28/19 at 11:38 am Service Date, if different from initiated Date: [] Patient: Eliezer Mahmood 68 y/o M admitted on 04/27/19 for Elevated creatnine. Chief Complaint: [] Feels ok. Slightly sleepy. Objective - Vital Signs Vital signs: Vital Signs Temp Pulse Pulse Resp BP BP Pulse Ox 04/28/19 11:24 80 94 04/28/19 11:01 80 87/62 96 04/28/19 10:01 80 113/68 98 04/28/19 09:01 81 117/79 98 04/28/19 08:01 98.2 F 80 20 105/67 95 04/28/19 07:01 80 16 108/61 95 04/28/19 06:01 80 18 102/62 91 04/28/19 05:01 79 16 97/60 94 04/28/19 04:01 98.0 F 79 18 108/63 95 04/28/19 03:01 80 19 111/69 96 04/28/19 02:01 80 18 114/62 88 L 04/28/19 02:00 80 15 97 04/28/19 01:15 80 18 94 04/28/19 01:01 79 20 109/67 100 04/28/19 00:01 98.4 F 80 16 131/107 96 04/27/19 23:01 80 14 132/87 96 04/27/19 22:39 97.5 F 79 22 139/88 99 04/27/19 22:25 97.5 F 80 20 139/88 98 04/27/19 22:00 80 16 131/81 98 04/27/19 21:32 80 16 113/68 98 04/27/19 21:00 80 22 113/78 97 04/27/19 20:41 80 18 109/75 99 04/27/19 20:00 80 16 114/73 96 04/27/19 19:30 81 15 112/72 96 04/27/19 19:00 80 22 110/67 97 04/27/19 18:30 98 H 17 111/73 96 04/27/19 18:00 79 18 117/66 98 04/27/19 17:32 97.7 F 79 18 102/66 95 Intake and Output 04/27/19 04/28/19 04/28/19 21:59 05:59 13:59 Intake Total 1000 500 120 Output Total 1200 1245 Balance 1000 -700 -1125 Intake: IV 1000 500 Sodium Chloride 0.9% 1,000 ml @ 1000 500 mls/hr IV .Q2H [facility] Rx#: [id number] Sodium Chloride 0.9% 500 ml @ 500 Wide Open IV BOLUS ONE Rx#: [id number] Oral 120 Output: Urine Catheter Amount 1200 1245 Other: Meal Breakfast Percent of Meal Consumed 100% Feeding Ability Independent Urine Appearance Sediment Hematuria Uretheral (Rojas) Clear Clear Urine Color Blood Tinged Brown Uretheral (Rojas) Pale Bright Yellow Stool Size Moderate Stool Color Don Stool Consistency Liquid # Bowel Movements 1 Weight 226 lb 220 lb 5 oz Intake & Output: Intake & Output 04/27/19 04/28/19 04/28/19 21:59 05:59 13:59 Intake Total 1000 500 120 Output Total 1200 1245 Balance 1000 -700 -1125 Weight 226 lb 220 lb 5 oz Intake: IV 1000 500 Sodium Chloride 0.9% 1,000 ml @ 1000 500 mls/hr IV .Q2H [facility] Rx#: [id number] Sodium Chloride 0.9% 500 ml @ 500 Wide Open IV BOLUS ONE Rx#: [id number] Oral 120 Output: Urine Catheter Amount 1200 1245 Other: Meal Breakfast Percent of Meal Consumed 100% Feeding Ability Independent Urine Appearance Sediment Hematuria Uretheral (Rojas) Clear Clear Urine Color Blood Tinged Brown Uretheral (Rojas) Pale Bright Yellow Stool Size Moderate Stool Color Don Stool Consistency Liquid # Bowel Movements 1 - General Appearance General appearance: well-developed, well-nourished EENT: ATNC Neck: no JVD Respiratory: no kyphosis Cardiology: no murmurs Integumentary: no rash - Lab 04/30/19 04:25 04/30/19 04:25 Most recent lab results Calcium 8.7 mg/dl (8.6-10.4) 04/28/19 03:30 Phosphorus 7.5 mg/dL (2.7-4.5) H* 04/28/19 03:30 Magnesium 1.9 mg/dL (1.6-2.5) 04/28/19 03:30 Assessment and Plan (1) BRIELLE (acute kidney injury) Status: Acute Comment: Secondary to probable ATN. CT negative. Not much improvement in renal function. He is uremic. Will start on dialysis with a temporary dialysis catheter.
[2019-04-28 13:32] LABS: Appearance,Urine CLOUDY; Bacteria,Urine 0 /hpf (0); Bilirubin,Urine NEG (NEG); Color,Urine RED; Culture Indicated,Urine YES; Glucose,Urine (UA) 50 mg/dL (NEG); Ketones,Urine 5/TR mg/dL (NEG); Leukocyte Esterase,Urine 75 /uL (NEG); Nitrate,Urine NEG (NEG); Protein,Urine 100 mg/dL (NEG); Specific Gravity,Urine 1.014 (1.000-1.035); Urine Blood 0.2 mg/dL (<0.03); Urine RBC > 182 /hpf (0-1); Urine Squamous Epithelial Cell 0 /hpf (0-4); Urine WBC > 182 /hpf (0-4); Urobilinogen,Urine NEG (NEG)
[2019-04-28] MEDS: cefTRIAXone 1 GM VIAL IV SCH (16:42)
[2019-04-28] MEDS ORDERED: SODIUM BICARBONATE VIAL 150 MEQ in WATER FOR INJECTION,STERILE 850 ML IV SCH (18:00)
[2019-04-28] MEDS ORDERED: hydrOXYzine 25 MG TABLET PO SCH (21:00)
[2019-04-28] MEDS ORDERED: hydrOXYzine 25 MG TABLET PO PRN (21:00)
[2019-04-28] MEDS: FAMOTIDINE/PF 20 MG/2 ML VIAL IV SCH (21:28)
[2019-04-28] MEDS: MELATONIN 3 MG TABLET PO SCH (21:30)
[2019-04-28] MEDS: CARVEDILOL 3.125 MG TABLET PO SCH (21:30)
[2019-04-28] MEDS: GABAPENTIN 100 MG CAPSULE PO SCH (21:30)
[2019-04-28] MEDS: traZODone HCL 50 MG TABLET PO SCH (21:30)
[2019-04-28] MEDS: ATORVASTATIN 20 MG TABLET PO SCH (21:31)
[2019-04-28] MEDS: SERTRALINE 100 MG TABLET PO SCH (21:38)
[2019-04-29 05:27] LABS: Basophils # (Auto) 0 K/mcL (0.0-0.3); Basophils % (Auto) 0 % (0.0-2.0); Eosinophils # (Auto) 0.3 K/mcL (0.0-0.7); Eosinophils % (Auto) 1.6 % (0.0-7.0); Granulocytes % (Auto) 82.1 % (38.0-78.0); Hematocrit 33.1 % (41.0-55.0); Hemoglobin 10.9 g/dL (13.5-16.5); Lymphocytes # (Auto) 1.4 K/mcL (1.5-4.8); Lymphocytes % (Auto) 7.7 % (15.5-49.0); Mean Cell Volume 96.6 fL (80.0-100.0); Monocytes # (Auto) 1.5 K/mcL (0.1-0.9); Monocytes % (Auto) 8.6 % (1.0-12.0); Platelet Count 310 K/mcL (140-440); RBC 3.42 M/mcL (4.50-5.90); Red Cell Distribution Width 15.3 % (11.5-14.5); WBC 17.8 K/mcL (4.5-11.0)
[2019-04-29] MEDS: 0.9 % SODIUM CHLORIDE 10 ML SYRINGE IV SCH ×4 (05:27→21:43)
[2019-04-29 05:34] LABS: INR 5.3 (0.9-1.1); Prothrombin Time 47.7 sec (11.9-14.5)
[2019-04-29 05:52] LABS: ALT/SGPT 11 U/l (0-40); AST/SGOT 9 U/l (0-37); Albumin 2.9 gm/dL (3.2-5.2); Albumin/Globulin Ratio 0.8 (1.0-2.3); Alkaline Phosphatase 108 U/L (39-117); Bilirubin,Direct < 0.2 mg/dL (0.0-0.3); Bilirubin,Total 0.4 mg/dL (0.0-1.0); Blood Urea Nitrogen 78 mg/dl (8-23); Calcium 8.6 mg/dl (8.6-10.4); Carbon Dioxide 20 mmol/L (22-30); Chloride 102 mmol/L (96-108); Digoxin < 0.3 ng/mL; Globulin 3.8 gm/dL (2.2-3.7); Glomerular Filtration Rate 7; Glucose 92 mg/dL (70-105); Lactate Dehydrogenase 175 U/L (94-250); Phosphorous 6.3 mg/dL (2.7-4.5); Triglycerides 78 mg/dl (<150); Uric Acid 4.7 mg/dL (2.5-8.0)
[2019-04-29] MEDS: ACETAMINOPHEN 325 MG TABLET PO PRN ×2 (07:19→11:36)
[2019-04-29] MEDS: INSULIN LISPRO 1 UNIT/0.01 ML UNIT SQ SCH ×4 (07:24→21:39)
--- NOTE | 2019-04-29 07:45 | Internal Med Progress Note ---
Medical - PN: Subj Patient information: Note initiated : 04/29/19 at 7:31 am Service Date, if different from initiated Date: [] Patient: Eliezer Mahmood a 68 y/o M admitted on 04/27/19 for Elevated creatnine. Chief Complaint: [] Interval history: Mr. Mahmood is a 68 year old M Who [facility] for abnormal labs. His creatinine was found to be 7.9 with a BUN of 83. He is asymptomatic. Has no nausea or vomiting, no lethargy or or altered mental status of any kind. States he is urinating okay and denies any hematuria. Denies flank pain or abdominal pain. No chest pain shortness of breath. Denies new medications except for some drops for his eyes. He takes Lasix twice daily but says that has not changed recently. Denies edema his legs, states sometimes he gets swelling in his ankles but not very often. Did have a rash beginning of the month which was there for a month or so but that has resolved. In the ED he had a work-up including CT abdomen pelvis which showed no acute pathology, it was without contrast. Is acidotic with bicarb of 13. Vital signs are stable. Actiq acidosis. Urine with trace blood and hyaline casts. Urine eosinophils unremarkable Case was discussed with Dr. Capellan. Who will follow and patient started on bicarb drip. Old records report in July 2018 he was found unresponsive with a creatinine of 8 and a BUN of 90. He was flown to [place] at that time from [facility] as they did not have any ICU beds available or ability to do emergent dialysis. Patient does not recall how long he was up there and he does not believe he was on hemodialysis or is ever been. His kidneys seem to improve and it appears his baseline creatinine is around 2-2-1/2 as of the past couple months prior to that seem to be close to 2 usually. 04/28 Slept well. No complaints. Urinating. Hematuria and Bhakta bag today, traumatic Bhakta while patient getting into bed. Not much improvement in creatinine today. Bicarb drip running slowly. 04/29 Sleeping fine and no overnight events. Hematuria. Feeling relatively fine, no change Review of Systems: denies headache/fever/chills/nausea/vomiting/chest or abdominal pain/cough/dyspnea/diarrhea. Otherwise see above. - Constitutional Vitals: Vital Signs Temp Pulse Resp BP Pulse Ox 100.0 F H 82 20 129/72 97 04/29/19 07:12 04/29/19 06:03 04/29/19 07:12 04/29/19 06:01 04/29/19 07:12 Period Temp Pulse Resp BP Sys/Arciniega Pulse Ox Last 24 Hr 98.1 F-100.0 F 79-82 12-24 87-139/58-89 88-99 Intake and Output 04/28/19 04/29/19 04/29/19 21:59 05:59 13:59 Intake Total 1116 240 Output Total 560 650 120 Balance 556 -410 -120 Weight 100.516 kg Intake & Output: Intake & Output 04/28/19 04/29/19 04/29/19 21:59 05:59 13:59 Intake Total 1116 240 Output Total 560 650 120 Balance 556 -410 -120 Weight 100.516 kg Intake: IV 1116 Oral 240 Output: Urine Catheter Amount 510 650 120 Void Amount 50 Other: Urine Appearance Hematuria Hematuria Hematuria Uretheral (Bhakta) Hematuria Hematuria Urine Color Dark Red Dark Red Uretheral (Bhakta) Dark Red Dark Red Urine Odor Normal Normal Exam: General: Alert, Awake, No acute Distress Eyes/N/T: EOMI, Head/Neck: neck supple, CV: RRR, No murmurs, Pulm: Clear b/l, no wheezing/rhonchi/rales Abd: soft, nontender, +BS x4 Ext: no clubbing/cyanosis/edema : Hematuria Neuro: Alert, no focal deficits, moves all extremities, Skin: warm/dry Medical - PN: Obj Da - Labs CBC & Chem 7: 04/29/19 04:08 04/29/19 04:08 Labs: Abnormal Lab Results 04/29/19 04/29/19 04/29/19 04:08 04:08 04:08 WBC 17.8 H RBC 3.42 L Hgb 10.9 L Hct 33.1 L RDW 15.3 H Gran % 82.1 H Lymph % (Auto) 7.7 L Gran # 14.6 H Lymph # (Auto) 1.4 L Williamson # (Auto) 1.5 H ESR POC PT PT 47.7 H POC INR INR 5.3 H Carbon Dioxide 20 L Anion Gap BUN 78 H Creatinine 7.4 H* Glucose Phosphorus 6.3 H* Total Creatine Kinase Albumin 2.9 L Globulin 3.8 H Albumin/Globulin Ratio 0.8 L Urine Protein Urine Glucose (UA) Urine Ketones Urine Occult Blood Ur Leukocyte Esterase Urine RBC Urine WBC Urine Bacteria Hyaline Casts 04/28/19 04/28/19 04/28/19 12:25 09:55 03:30 WBC RBC Hgb Hct RDW Gran % Lymph % (Auto) Gran # Lymph # (Auto) Williamson # (Auto) ESR POC PT PT POC INR INR Carbon Dioxide 14 L Anion Gap 18.0 H BUN 78 H Creatinine 7.7 H* Glucose Phosphorus 7.5 H* Total Creatine Kinase 208 H Albumin 3.1 L Globulin Albumin/Globulin Ratio 0.9 L Urine Protein 100 A Urine Glucose (UA) 50 A Urine Ketones 5/tr A Urine Occult Blood 0.2 A Ur Leukocyte Esterase 75 A Urine RBC > 182 H Urine WBC > 182 H Urine Bacteria Hyaline Casts 04/28/19 04/28/19 04/27/19 03:30 03:30 21:05 WBC RBC 3.39 L Hgb 10.9 L Hct 33.1 L RDW 15.0 H Gran % Lymph % (Auto) Gran # Lymph # (Auto) Williamson # (Auto) 1.0 H ESR 76 H POC PT PT 46.9 H POC INR INR 5.2 H Carbon Dioxide Anion Gap BUN Creatinine Glucose Phosphorus Total Creatine Kinase Albumin Globulin Albumin/Globulin Ratio Urine Protein Urine Glucose (UA) Urine Ketones Urine Occult Blood Ur Leukocyte Esterase Urine RBC Urine WBC Urine Bacteria Hyaline Casts 04/27/19 04/27/19 04/27/19 20:40 19:36 17:51 WBC RBC Hgb Hct RDW Gran % Lymph % (Auto) Gran # Lymph # (Auto) Williamson # (Auto) ESR POC PT > 66.0 H PT 45.1 H POC INR > 6.0 H* INR 4.9 H Carbon Dioxide Anion Gap BUN Creatinine Glucose Phosphorus Total Creatine Kinase Albumin Globulin Albumin/Globulin Ratio Urine Protein Urine Glucose (UA) Urine Ketones Urine Occult Blood Trace A Ur Leukocyte Esterase Urine RBC 2 H Urine WBC 19 H Urine Bacteria Mod A Hyaline Casts 4 H 04/27/19 04/27/19 17:51 17:51 WBC RBC 3.60 L Hgb 11.5 L Hct 34.9 L RDW 15.6 H Gran % Lymph % (Auto) 13.4 L Gran # Lymph # (Auto) 1.2 L Williamson # (Auto) ESR POC PT PT POC INR INR Carbon Dioxide 13 L Anion Gap 19.0 H BUN 82 H Creatinine 7.9 H* Glucose 242 H Phosphorus Total Creatine Kinase Albumin Globulin 3.9 H Albumin/Globulin Ratio 0.8 L Urine Protein Urine Glucose (UA) Urine Ketones Urine Occult Blood Ur Leukocyte Esterase Urine RBC Urine WBC Urine Bacteria Hyaline Casts Meds: Medications Acetaminophen (Tylenol) 650 mg PO Q4-6HP PRN PRN Reason: PAIN/FEVER > 101 Last Admin: 04/29/19 07:19 Dose: 650 mg Documented by: Albuterol/Ipratropium (Duoneb) 3 ml NEB Q6HRT PRN PRN Reason: Bronchospasm Allopurinol (Zyloprim) 50 mg PO DAILY [facility] Last Admin: 04/28/19 09:34 Dose: 50 mg Documented by: Artificial Tears (Artificial Tears Ophth Drops) 1 gtt OU DAILY [facility] [place] Last Admin: 04/28/19 09:34 Dose: 1 gtt Documented by: Atorvastatin Calcium (Lipitor) 5 mg PO HS [facility] [place] Last Admin: 04/28/19 21:31 Dose: 5 mg Documented by: Bisacodyl (Dulcolax) 10 mg SC DAILYP PRN PRN Reason: Constipation Carvedilol (Coreg) 3.125 mg PO BID [facility] [place] Last Admin: 04/28/19 21:30 Dose: 3.125 mg Documented by: Ceftriaxone Sodium (Rocephin) 1 gm IV DAILY [facility] [place]; Protocol Last Admin: 04/28/19 16:42 Dose: 1 gm Documented by: Clonazepam (Klonopin) 0.25 mg PO DAILY [facility] [place] Last Admin: 04/28/19 09:34 Dose: 0.25 mg Documented by: Dextrose (Dextrose 50%) 0 ml IV UD PRN PRN Reason: Hypoglycemia Diagnostic Test (Pha) (Accu-Chek) 1 each FS ACHS [facility] [place] Last Admin: 04/29/19 07:24 Dose: 1 each Documented by: Docusate Sodium (Colace) 100 mg PO BID [facility] [place] Last Admin: 04/28/19 21:29 Dose: 100 mg Documented by: Famotidine (Pepcid) 20 mg IV HS [facility] [place] Last Admin: 04/28/19 21:28 Dose: 20 mg Documented by: Gabapentin (Neurontin) 100 mg PO [facility] Last Admin: 04/28/19 21:30 Dose: 100 mg Documented by: Glucose (Insta-Glucose) 15 gm PO PRN PRN PRN Reason: Hypoglycemia Hydroxyzine HCl (Atarax) 0 mg PO HSP PRN PRN Reason: Insomnia Last Admin: 04/28/19 21:30 Dose: 25 mg Documented by: Sodium Bicarbonate 150 meq/ (Sterile Water) 1,000 mls @ 60 mls/hr IV Q20H [facility] [place] Stop: 04/29/19 10:39 Last Admin: 04/28/19 18:18 Dose: 60 mls/hr Documented by: Insulin Glargine (Lantus) 2 unit SQ BID [facility] Last Admin: 04/28/19 21:29 Dose: 2 units Documented by: Insulin Human Lispro (Humalog) 0 unit SQ ACHS [facility]; Protocol Last Admin: 04/29/19 07:24 Dose: Not Given Documented by: Labetalol HCl (Trandate) 0 mg IV Q2HP PRN PRN Reason: Hypertension Melatonin (Melatonin 3mg Tablet) 9 mg PO [facility] Last Admin: 04/28/19 21:30 Dose: 9 mg Documented by: Memantine (Namenda) 10 mg PO BID [facility] [place] Last Admin: 04/28/19 21:30 Dose: 10 mg Documented by: Misoprostol (Cytotec) 100 mcg PO DAILY [facility] Last Admin: 04/28/19 09:34 Dose: 100 mcg Documented by: Mupirocin (Bactroban Oint 2%) 1 dose NARES BID [facility] Last Admin: 04/28/19 21:28 Dose: 1 dose Documented by: Ondansetron HCl (Zofran) 4 mg IV Q4-6HP PRN PRN Reason: Nausea And Vomiting Loteprednol Etabonate [Lotemax] 0.5% Ophthalmic Suspension 1 dose OU QID [facility] [place] Last Admin: 04/28/19 21:32 Dose: Not Given Documented by: Nepafenac [Ilevro] 0 .3% Ophthalmic Suspension 1 dose OU DAILY [facility] [place] Last Admin: 04/28/19 09:35 Dose: Not Given Documented by: Promethazine HCl (Phenergan) 12.5 mg IV Q4-6HP PRN PRN Reason: Nausea And Vomiting Ropinirole HCl (Requip) 1 mg PO BID [facility] [place] Last Admin: 04/28/19 21:37 Dose: 1 mg Documented by: Sertraline HCl (Zoloft) 150 mg PO [facility] Last Admin: 04/28/19 21:38 Dose: 150 mg Documented by: Sodium Chloride (Saline Flush) 10 ml IV Q8 [facility] Last Admin: 04/29/19 05:27 Dose: Not Given Documented by: Trazodone HCl (Desyrel) 50 mg PO [facility] Last Admin: 04/28/19 21:30 Dose: 50 mg Documented by: Warfarin Sodium (Coumadin Per Pharmacy) 1 order PO UD [facility] Medical - PN: A/P - Time Spent With Patient Total time spent is greater than 50% in coordination of care (as documented) at patient's floor/unit and/or counseling patient: - Narrative A/P Narrative: A: *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 coli - suspected ESBL): *h/o CVA: *DM: A1c 6.5 *HTN: home coreg/lisinopril *Anemia, chronic: *Depression: *Alzheimers Dementia: On Namenda *GERD: * P: -bicarb gtt at gentle rate given CMP, finishing -Dr. Capellan following, further recs per neprhology -monitor i/o's, weights -Lasix and lisinopril held -cont BB at lower dose to allow increase perfusion pressures -Renally dose gabapentin and allopurinol -PPI switch to H2 given renal failure -Rocephin change to meropenem, pending final C&S -Basal and SSI -cont statin -pt/ot -ppx: Supratherapeutic on warfarin at this time (holding - pharmacy to re-dose when appropriate) full code Medical - PN: Qual - VTE Deep Vein Thrombosis/Pulmonary Embolism Present on Admission: No
[2019-04-29] MEDS: POLYVINYL ALCOHOL OPHTH DROPS 15ML BOTTLE OU SCH (09:05)
[2019-04-29] MEDS: MUPIROCIN OINT 2% 22GM NARES SCH ×2 (09:05→21:38)
[2019-04-29] MEDS: DOCUSATE SODIUM 100 MG CAPSULE PO SCH ×2 (09:11→21:38)
[2019-04-29] MEDS: clonazePAM 0.5 MG TABLET PO SCH (09:11)
[2019-04-29] MEDS: CARVEDILOL 3.125 MG TABLET PO SCH ×2 (09:11→21:39)
[2019-04-29] MEDS: ALLOPURINOL 100 MG TABLET PO SCH (09:11)
[2019-04-29] MEDS: MEMANTINE 10 MG TABLET PO SCH ×2 (09:19→21:42)
[2019-04-29] MEDS: MISOPROSTOL 100 MCG TABLET PO SCH (09:19)
[2019-04-29] MEDS: rOPINIRole 1 MG TABLET PO SCH ×2 (09:19→21:42)
[2019-04-29] MEDS: INSULIN GLARGINE, HUMAN 1 UNIT/0.01 ML SQ SCH ×2 (09:20→21:40)
[2019-04-29] MEDS: LOTEPREDNOL ETABONATE 0.5% OU SCH ×4 (09:24→21:42)
[2019-04-29] MEDS: NEPAFENAC 0.3% OU SCH (09:25)
[2019-04-29 09:32] LABS: C-Reactive Protein 10.9 mg/dl (0.0-0.8)
[2019-04-29] MEDS: cefTRIAXone 1 GM VIAL IV SCH (10:18)
[2019-04-29] MEDS: MEROPENEM 0.5 GM in 0.9 % SODIUM CHLORIDE 50 ML IV SCH (10:22)
[2019-04-29 10:23] LABS: Basophils % (Manual) 1 % (0-2); Eosinophils % (Manual) 3 % (0-7); Lymphocytes % 6 % (15-49); Monocytes % (Manual) 6 % (1-12); Platelet Estimate NORMAL (NORMAL); RBC Morphology NORMAL (NORMAL); Segmented Neutrophils % 84 % (38-78)
[2019-04-29] MEDS: traZODone HCL 50 MG TABLET PO SCH (21:39)
[2019-04-29] MEDS: ATORVASTATIN 20 MG TABLET PO SCH (21:40)
[2019-04-29] MEDS: MELATONIN 3 MG TABLET PO SCH (21:41)
[2019-04-29] MEDS: SERTRALINE 100 MG TABLET PO SCH (21:42)
[2019-04-29] MEDS: FAMOTIDINE/PF 20 MG/2 ML VIAL IV SCH (21:42)
[2019-04-29] MEDS: GABAPENTIN 100 MG CAPSULE PO SCH (21:42)
[2019-04-30] MEDS: 0.9 % SODIUM CHLORIDE 10 ML SYRINGE IV SCH ×4 (05:26→22:26)
[2019-04-30 06:04] LABS: Hematocrit 31.6 % (41.0-55.0); Hemoglobin 10.5 g/dL (13.5-16.5); Mean Cell Volume 96.8 fL (80.0-100.0); Mean Corpuscular HGB Conc 33.2 g/dL (31.0-36.0); Mean Platelet Volume 7.9 fL (7.4-10.4); Platelet Count 276 K/mcL (140-440); RBC 3.26 M/mcL (4.50-5.90); Red Cell Distribution Width 15.1 % (11.5-14.5)
[2019-04-30 06:16] LABS: INR 3.7 (0.9-1.1); Prothrombin Time 36.3 sec (11.9-14.5)
[2019-04-30 06:37] LABS: ALT/SGPT 10 U/l (0-40); AST/SGOT 9 U/l (0-37); Albumin 2.6 gm/dL (3.2-5.2); Albumin/Globulin Ratio 0.7 (1.0-2.3); Alkaline Phosphatase 104 U/L (39-117); Bilirubin,Direct < 0.2 mg/dL (0.0-0.3); Bilirubin,Total 0.4 mg/dL (0.0-1.0); Blood Urea Nitrogen 79 mg/dl (8-23); Calcium 8.7 mg/dl (8.6-10.4); Carbon Dioxide 18 mmol/L (22-30); Chloride 101 mmol/L (96-108); Globulin 3.9 gm/dL (2.2-3.7); Glomerular Filtration Rate 7; Glucose 102 mg/dL (70-105); Lactate Dehydrogenase 174 U/L (94-250); Phosphorous 6.4 mg/dL (2.7-4.5); Triglycerides 78 mg/dl (<150); Uric Acid 4.9 mg/dL (2.5-8.0)
[2019-04-30 06:50] LABS: Lymphocytes % 9 % (15-49); Monocytes % (Manual) 7 % (1-12); Platelet Estimate NORMAL (NORMAL); RBC Morphology NORMAL (NORMAL); Segmented Neutrophils % 84 % (38-78)
--- NOTE | 2019-04-30 07:16 | Internal Med Progress Note ---
Medical - PN: Subj Patient information: Note initiated : 04/30/19 at 7:09 am Service Date, if different from initiated Date: [] Patient: Eliezer Mahmood 68 y/o M admitted on 04/27/19 for Elevated creatnine. Chief Complaint: [] Interval history: Mr. Mahmood is a 68 year old M Who was sent in from the group home facility for abnormal labs. His creatinine was found to be 7.9 with a BUN of 83. He is asymptomatic. Has no nausea or vomiting, no lethargy or or altered mental status of any kind. States he is urinating okay and denies any hematuria. Denies flank pain or abdominal pain. No chest pain shortness of breath. Denies new medications except for some drops for his eyes. He takes Lasix twice daily but says that has not changed recently. Denies edema his legs, states sometimes he gets swelling in his ankles but not very often. Did have a rash beginning of the month which was there for a month or so but that has resolved. In the ED he had a work-up including CT abdomen pelvis which showed no acute pathology, it was without contrast. Is acidotic with bicarb of 13. Vital signs are stable. Actiq acidosis. Urine with trace blood and hyaline casts. Urine eosinophils unremarkable Case was discussed with Dr. Capellan. Who will follow and patient started on bicarb drip. Old records report in July 2018 he was found unresponsive with a creatinine of 8 and a BUN of 90. He was flown to [place] at that time from [facility] as they did not have any ICU beds available or ability to do emergent dialysis. Patient does not recall how long he was up there and he does not believe he was on hemodialysis or is ever been. His kidneys seem to improve and it appears his baseline creatinine is around 2-2-1/2 as of the past couple months prior to that seem to be close to 2 usually. 04/28 Slept well. No complaints. Urinating. Hematuria and Bhakta bag today, traumatic Bhakta while patient getting into bed. Not much improvement in creatinine today. Bicarb drip running slowly. 04/29 Sleeping fine and no overnight events. Hematuria. Feeling relatively fine, no change 04/30 Seems to feel little better today. Still has a hematuria but not as dark. No new complaints. Creatinine slowly trending down. White blood cells up afebrile. Review of Systems: denies headache/fever/chills/nausea/vomiting/chest or abdominal pain/cough/dyspnea/diarrhea. Otherwise see above. - Constitutional Vitals: Vital Signs Temp Pulse Resp BP Pulse Ox 99.7 F H 80 20 114/53 94 04/30/19 00:01 04/30/19 02:03 04/30/19 02:03 04/30/19 02:01 04/30/19 02:03 Period Temp Pulse Resp BP Sys/Arcin[place] Pulse Ox Last 24 Hr 97.8 F-100.0 F 79-80 13-25 96-168/52-97 88-99 Intake and Output 04/29/19 04/30/19 04/30/19 21:59 05:59 13:59 Intake Total 480 240 Output Total 495 350 120 Balance -15 -110 -120 Weight 102.104 kg Intake & Output: Intake & Output 04/29/19 04/30/19 04/30/19 21:59 05:59 13:59 Intake Total 480 240 Output Total 495 350 120 Balance -15 -110 -120 Weight 102.104 kg Intake: Oral 480 240 Output: Urine Catheter Amount 495 350 120 Other: Meal Dinner Percent of Meal Consumed 100% Feeding Ability Independent Urine Appearance Hematuria Hematuria Uretheral (Bhakta) Hematuria Hematuria Urine Color Red Brown Red Brown Red Brown Uretheral (Bhakta) Red Brown Red Brown Exam: General: Alert, Awake, No acute Distress Eyes/N/T: EOMI, Head/Neck: neck supple, CV: RRR, No murmurs, Pulm: Clear b/l, no wheezing/rhonchi/rales Abd: soft, nontender, +BS x4 Ext: no clubbing/cyanosis/edema : Hematuria Neuro: Alert, no focal deficits, moves all extremities, Skin: warm/dry Medical - PN: Obj Da - Labs CBC & Chem 7: 04/30/19 04:25 04/30/19 04:25 Labs: Abnormal Lab Results 04/30/19 04/30/19 04/30/19 04:25 04:25 04:25 WBC 23.0 H RBC 3.26 L Hgb 10.5 L Hct 31.6 L RDW 15.1 H Gran % Lymph % (Auto) Gran # Lymph # (Auto) Price # (Auto) Seg Neutrophils % 84 H Lymphocytes % 9 L ESR POC PT PT POC INR INR Carbon Dioxide 18 L Anion Gap 19.0 H BUN 79 H Creatinine 7.0 H* Glucose Phosphorus 6.4 H* Total Creatine Kinase C-Reactive Protein NT-Pro-B Natriuret Pep 87938.0 H Albumin 2.6 L Globulin 3.9 H Albumin/Globulin Ratio 0.7 L Urine Protein Urine Glucose (UA) Urine Ketones Urine Occult Blood Ur Leukocyte Esterase Urine RBC Urine WBC Urine Bacteria Hyaline Casts 04/30/19 04/29/19 04/29/19 04:25 10:50 08:18 WBC RBC Hgb Hct RDW Gran % Lymph % (Auto) Gran # Lymph # (Auto) Price # (Auto) Seg Neutrophils % 84 H Lymphocytes % 6 L ESR POC PT PT 36.3 H POC INR INR 3.7 H Carbon Dioxide Anion Gap BUN Creatinine Glucose Phosphorus Total Creatine Kinase C-Reactive Protein NT-Pro-B Natriuret Pep 83348.0 H Albumin Globulin Albumin/Globulin Ratio Urine Protein Urine Glucose (UA) Urine Ketones Urine Occult Blood Ur Leukocyte Esterase Urine RBC Urine WBC Urine Bacteria Hyaline Casts 04/29/19 04/29/19 04/29/19 08:08 04:08 04:08 WBC 17.8 H RBC 3.42 L Hgb 10.9 L Hct 33.1 L RDW 15.3 H Gran % 82.1 H Lymph % (Auto) 7.7 L Gran # 14.6 H Lymph # (Auto) 1.4 L Price # (Auto) 1.5 H Seg Neutrophils % Lymphocytes % ESR POC PT PT POC INR INR Carbon Dioxide 20 L Anion Gap BUN 78 H Creatinine 7.4 H* Glucose Phosphorus 6.3 H* Total Creatine Kinase C-Reactive Protein 10.9 H NT-Pro-B Natriuret Pep Albumin 2.9 L Globulin 3.8 H Albumin/Globulin Ratio 0.8 L Urine Protein Urine Glucose (UA) Urine Ketones Urine Occult Blood Ur Leukocyte Esterase Urine RBC Urine WBC Urine Bacteria Hyaline Casts 04/29/19 04/28/19 04/28/19 04:08 12:25 09:55 WBC RBC Hgb Hct RDW Gran % Lymph % (Auto) Gran # Lymph # (Auto) Price # (Auto) Seg Neutrophils % Lymphocytes % ESR POC PT PT 47.7 H POC INR INR 5.3 H Carbon Dioxide Anion Gap BUN Creatinine Glucose Phosphorus Total Creatine Kinase 208 H C-Reactive Protein NT-Pro-B Natriuret Pep Albumin Globulin Albumin/Globulin Ratio Urine Protein 100 A Urine Glucose (UA) 50 A Urine Ketones 5/tr A Urine Occult Blood 0.2 A Ur Leukocyte Esterase 75 A Urine RBC > 182 H Urine WBC > 182 H Urine Bacteria Hyaline Casts 04/28/19 04/28/19 04/28/19 03:30 03:30 03:30 WBC RBC 3.39 L Hgb 10.9 L Hct 33.1 L RDW 15.0 H Gran % Lymph % (Auto) Gran # Lymph # (Auto) Price # (Auto) 1.0 H Seg Neutrophils % Lymphocytes % ESR POC PT PT 46.9 H POC INR INR 5.2 H Carbon Dioxide 14 L Anion Gap 18.0 H BUN 78 H Creatinine 7.7 H* Glucose Phosphorus 7.5 H* Total Creatine Kinase C-Reactive Protein NT-Pro-B Natriuret Pep Albumin 3.1 L Globulin Albumin/Globulin Ratio 0.9 L Urine Protein Urine Glucose (UA) Urine Ketones Urine Occult Blood Ur Leukocyte Esterase Urine RBC Urine WBC Urine Bacteria Hyaline Casts 04/27/19 04/27/19 04/27/19 21:05 20:40 19:36 WBC RBC Hgb Hct RDW Gran % Lymph % (Auto) Gran # Lymph # (Auto) Price # (Auto) Seg Neutrophils % Lymphocytes % ESR 76 H POC PT > 66.0 H PT POC INR > 6.0 H* INR Carbon Dioxide Anion Gap BUN Creatinine Glucose Phosphorus Total Creatine Kinase C-Reactive Protein NT-Pro-B Natriuret Pep Albumin Globulin Albumin/Globulin Ratio Urine Protein Urine Glucose (UA) Urine Ketones Urine Occult Blood Trace A Ur Leukocyte Esterase Urine RBC 2 H Urine WBC 19 H Urine Bacteria Mod A Hyaline Casts 4 H 04/27/19 04/27/19 04/27/19 17:51 17:51 17:51 WBC RBC 3.60 L Hgb 11.5 L Hct 34.9 L RDW 15.6 H Gran % Lymph % (Auto) 13.4 L Gran # Lymph # (Auto) 1.2 L Price # (Auto) Seg Neutrophils % Lymphocytes % ESR POC PT PT 45.1 H POC INR INR 4.9 H Carbon Dioxide 13 L Anion Gap 19.0 H BUN 82 H Creatinine 7.9 H* Glucose 242 H Phosphorus Total Creatine Kinase C-Reactive Protein NT-Pro-B Natriuret Pep Albumin Globulin 3.9 H Albumin/Globulin Ratio 0.8 L Urine Protein Urine Glucose (UA) Urine Ketones Urine Occult Blood Ur Leukocyte Esterase Urine RBC Urine WBC Urine Bacteria Hyaline Casts Meds: Medications Acetaminophen (Tylenol) 650 mg PO Q4-6HP PRN PRN Reason: PAIN/FEVER > 101 Last Admin: 04/29/19 11:36 Dose: 650 mg Documented by: Albuterol/Ipratropium (Duoneb) 3 ml NEB Q6HRT PRN PRN Reason: Bronchospasm Allopurinol (Zyloprim) 50 mg PO DAILY [facility] Last Admin: 04/29/19 09:11 Dose: 50 mg Documented by: Artificial Tears (Artificial Tears Ophth Drops) 1 gtt OU DAILY [facility] Last Admin: 04/29/19 09:05 Dose: 1 gtt Documented by: Atorvastatin Calcium (Lipitor) 5 mg PO HS [facility] Last Admin: 04/29/19 21:40 Dose: 5 mg Documented by: Bisacodyl (Dulcolax) 10 mg HI DAILYP PRN PRN Reason: Constipation Carvedilol (Coreg) 3.125 mg PO BID [facility] Last Admin: 04/29/19 21:39 Dose: 3.125 mg Documented by: Clonazepam (Klonopin) 0.25 mg PO DAILY [facility] Last Admin: 04/29/19 09:11 Dose: 0.25 mg Documented by: Dextrose (Dextrose 50%) 0 ml IV UD PRN PRN Reason: Hypoglycemia Diagnostic Test (Pha) (Accu-Chek) 1 each FS ACHS [facility] Last Admin: 04/29/19 21:38 Dose: 1 each Documented by: Docusate Sodium (Colace) 100 mg PO BID [facility] Last Admin: 04/29/19 21:38 Dose: 100 mg Documented by: Famotidine (Pepcid) 20 mg IV HS [facility] Last Admin: 04/29/19 21:42 Dose: 20 mg Documented by: Gabapentin (Neurontin) 100 mg PO HS [facility] Last Admin: 04/29/19 21:42 Dose: 100 mg Documented by: Glucose (Insta-Glucose) 15 gm PO PRN PRN PRN Reason: Hypoglycemia Hydroxyzine HCl (Atarax) 0 mg PO HSP PRN PRN Reason: Insomnia Last Admin: 04/28/19 21:30 Dose: 25 mg Documented by: Meropenem 0.5 gm/ Sodium (Chloride) 50 mls @ 100 mls/hr IV DAILY [facility]; Protocol Last Infusion: 04/29/19 11:00 Dose: Infused Documented by: Insulin Glargine (Lantus) 2 unit SQ BID [facility] Last Admin: 04/29/19 21:40 Dose: 2 units Documented by: Insulin Human Lispro (Humalog) 0 unit SQ ACHS [facility]; Protocol Last Admin: 04/29/19 21:39 Dose: 2 unit Documented by: Labetalol HCl (Trandate) 0 mg IV Q2HP PRN PRN Reason: Hypertension Last Admin: 04/29/19 21:44 Dose: 10 mg Documented by: Melatonin (Melatonin 3mg Tablet) 9 mg PO [facility] Last Admin: 04/29/19 21:41 Dose: 9 mg Documented by: Memantine (Namenda) 10 mg PO BID [facility] Last Admin: 04/29/19 21:42 Dose: 10 mg Documented by: Misoprostol (Cytotec) 100 mcg PO DAILY [facility] Last Admin: 04/29/19 09:19 Dose: 100 mcg Documented by: Mupirocin (Bactroban Oint 2%) 1 dose NARES BID [facility] Last Admin: 04/29/19 21:38 Dose: 1 dose Documented by: Ondansetron HCl (Zofran) 4 mg IV Q4-6HP PRN PRN Reason: Nausea And Vomiting Loteprednol Etabonate [Lotemax] 0.5% Ophthalmic Suspension 1 dose OU QID [facility] Last Admin: 04/29/19 21:42 Dose: Not Given Documented by: Nepafenac [Ilevro] 0 .3% Ophthalmic Suspension 1 dose OU DAILY [facility] Last Admin: 04/29/19 09:25 Dose: Not Given Documented by: Promethazine HCl (Phenergan) 12.5 mg IV Q4-6HP PRN PRN Reason: Nausea And Vomiting Ropinirole HCl (Requip) 1 mg PO BID [facility] Last Admin: 04/29/19 21:42 Dose: 1 mg Documented by: Sertraline HCl (Zoloft) 150 mg PO [facility] Last Admin: 04/29/19 21:42 Dose: 150 mg Documented by: Sodium Chloride (Saline Flush) 10 ml IV Q8 [facility] Last Admin: 04/30/19 05:26 Dose: 10 ml Documented by: Trazodone HCl (Desyrel) 50 mg PO HS [facility] Last Admin: 04/29/19 21:39 Dose: 50 mg Documented by: Warfarin Sodium (Coumadin Per Pharmacy) 1 order PO UD [facility] Medical - PN: A/P - Time Spent With Patient Total time spent is greater than 50% in coordination of care (as documented) at patient's floor/unit and/or counseling patient: - Narrative A/P Narrative: A: *BRIELLE on CKD IIIb-IV: ?ATN or other intarenal dz but UA unimpressive, ?Cardiorenal dz -good UOP -urine eos unremarkable, imaging unremarkable -7.0<7.4<<7.9 *Metabolic acidosis: 2/2 above, improving *Coagulopathy: 2/2 warfarin, improving *Hematuria: traumatic bhakta in setting of supratherapeutic INR. 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 coli - suspected ESBL per lab): *Leukocytosis: no bandemia. has UTI, chest unremarkable, but wbc increasing. was on rocephin and switched to merrem for likely ESBL *h/o CVA: *DM: A1c 6.5 *HTN: home coreg/lisinopril *Anemia, chronic: *Depression: *Alzheimers Dementia: On Namenda -more confusion last night than night before, given elevated INR will check CT brain *GERD: P: -Dr. Capellan following, -monitor i/o's, weights -Lasix and lisinopril held -cont BB at lower dose to allow increase perfusion pressures -Renally dose gabapentin and allopurinol -PPI switch to H2 given renal failure -Rocephin change to meropenem, pending final C&S -BC pending -CT brain -Basal and SSI -cont statin -pt/ot -ppx: Supratherapeutic on warfarin at this time (holding - pharmacy to re-dose when appropriate) full code Medical - PN: Qual - VTE Deep Vein Thrombosis/Pulmonary Embolism Present on Admission: No
[2019-04-30] MEDS: INSULIN LISPRO 1 UNIT/0.01 ML UNIT SQ SCH ×4 (07:30→22:31)
--- NOTE | 2019-04-30 08:19 | Cat Scan Report ---
History: Increased confusion, elevated INR level, prior stroke and history of esophageal cancer. TECHNIQUE: The brain was imaged without contrast at 2.5 mm intervals. The radiation exposure was limited using dose reduction technology. FINDINGS: There is a stable old moderate size infarct with encephalomalacia superiorly and laterally in the left cerebellar hemisphere. Associated 2 mm subcortical white matter infarct in the right parietal lobe. No acute infarct is detected. There is no cerebral edema or mass effect or hemorrhage. No abnormal extra-axial fluid collection is present. Patient has moderate atrophy, primarily around sylvian fissures and in the frontal lobes. The ventricles are normal in size allowing for the atrophy. Comparison with the prior exam from 04/19/2019 and 10/14/2018 shows no change. IMPRESSION: Stable old infarcts and no acute abnormality Interpreted and Authenticated by: Josh Pacheco 04/30/19
[2019-04-30] MEDS: MUPIROCIN OINT 2% 22GM NARES SCH ×2 (09:20→22:26)
[2019-04-30] MEDS: CARVEDILOL 3.125 MG TABLET PO SCH (09:20)
[2019-04-30] MEDS: MISOPROSTOL 100 MCG TABLET PO SCH (09:20)
[2019-04-30] MEDS: clonazePAM 0.5 MG TABLET PO SCH (09:20)
[2019-04-30] MEDS: MEMANTINE 10 MG TABLET PO SCH ×2 (09:20→22:29)
[2019-04-30] MEDS: ALLOPURINOL 100 MG TABLET PO SCH (09:20)
[2019-04-30] MEDS: rOPINIRole 1 MG TABLET PO SCH ×2 (09:20→22:28)
[2019-04-30] MEDS: MEROPENEM 0.5 GM in 0.9 % SODIUM CHLORIDE 50 ML IV SCH (09:21)
[2019-04-30] MEDS: POLYVINYL ALCOHOL OPHTH DROPS 15ML BOTTLE OU SCH (09:21)
[2019-04-30] MEDS: DOCUSATE SODIUM 100 MG CAPSULE PO SCH ×2 (09:21→22:27)
[2019-04-30] MEDS: NEPAFENAC 0.3% OU SCH ×2 (09:22→13:44)
[2019-04-30] MEDS: LOTEPREDNOL ETABONATE 0.5% OU SCH ×4 (09:22→23:53)
[2019-04-30] MEDS: INSULIN GLARGINE, HUMAN 1 UNIT/0.01 ML SQ SCH ×2 (09:23→23:17)
[2019-04-30] MEDS ORDERED: FUROSEMIDE 20 MG TABLET PO ONE ×2 (10:41→10:56)
[2019-04-30] MEDS ORDERED: PHYTONADIONE 10 MG/ML AMPUL PO ONE ×2 (10:45→10:56)
[2019-04-30] MEDS ORDERED: 0.9 % SODIUM CHLORIDE 250 ML IV SCH ×2 (10:45→10:56)
[2019-04-30] MEDS ORDERED: DEXTROSE 50% 50 ML VIAL IV PRN (10:56)
[2019-04-30] MEDS ORDERED: IPRATROPIUM/ALBUTEROL 3 ML AMPUL.NEB NEB PRN (10:56)
[2019-04-30] MEDS ORDERED: BISACODYL 10 MG SUPP.RECT PR PRN (10:56)
[2019-04-30] MEDS ORDERED: DEXTROSE 31 GM ORAL.SUSP PO PRN (10:56)
[2019-04-30] MEDS ORDERED: PROMETHAZINE 25 MG/ML VIAL IV PRN (10:56)
[2019-04-30] MEDS ORDERED: ONDANSETRON 4 MG/2 ML VIAL IV PRN (10:56)
[2019-04-30] MEDS ORDERED: PHYTONADIONE 1 MG in 0.9 % SODIUM CHLORIDE 50 ML IV ONE (10:56)
[2019-04-30] MEDS ORDERED: LABETALOL 5 MG/ML ML IV PRN (10:56)
--- NOTE | 2019-04-30 12:09 | Nephrology Progress Note ---
Subjective Patient information: Note initiated : 04/30/19 at 12:05 pm Service Date, if different from initiated Date: [] Patient: Eliezer Mahmood 68 y/o M admitted on 04/27/19 for Elevated creatnine. Chief Complaint: [] sleepy, has asterixis. Objective - Vital Signs Vital signs: Vital Signs Temp Pulse Pulse Resp BP Pulse Ox 04/30/19 08:21 78 128/101 95 04/30/19 07:01 21 139/89 04/30/19 06:01 80 21 118/61 89 L 04/30/19 05:01 80 23 H 113/65 91 04/30/19 04:01 99.6 F H 80 18 136/83 95 04/30/19 03:01 16 112/62 04/30/19 02:03 80 20 94 04/30/19 02:01 79 22 114/53 88 L 04/30/19 01:30 98 04/30/19 01:03 80 21 98 04/30/19 01:01 21 129/80 04/30/19 00:28 80 25 H 93 04/30/19 00:15 80 93 04/30/19 00:01 99.7 F H 80 20 124/79 96 04/29/19 23:51 80 23 H 92 04/29/19 23:01 80 22 103/52 93 04/29/19 22:01 80 21 158/97 96 04/29/19 21:01 80 25 H 168/96 96 04/29/19 20:01 99.6 F H 80 21 130/71 96 04/29/19 19:14 13 119/75 04/29/19 19:05 80 93 04/29/19 18:01 22 124/78 04/29/19 16:01 79 19 119/59 97 04/29/19 15:02 97.8 F 80 15 130/83 98 04/29/19 14:01 20 123/70 04/29/19 14:00 98 04/29/19 13:13 80 18 96/60 99 Intake and Output 04/29/19 04/30/19 04/30/19 21:59 05:59 13:59 Intake Total 480 480 240 Output Total 495 840 520 Balance -15 -360 -280 Intake: Oral 480 480 240 Output: Urine Catheter Amount 495 590 320 Stool 250 200 Other: Meal Dinner Breakfast Percent of Meal Consumed 100% 100% Feeding Ability Independent Urine Appearance Hematuria Hematuria Uretheral (Rojas) Hematuria Hematuria Urine Color Red Brown Red Brown Red Brown Uretheral (Rojas) Red Brown Red Brown Stool Size Large Stool Color Brown Yellow Stool Consistency Liquid Loose Weight 225 lb 1.6 oz Intake & Output: Intake & Output 04/29/19 04/30/19 04/30/19 21:59 05:59 13:59 Intake Total 480 480 240 Output Total 495 840 520 Balance -15 -360 -280 Weight 225 lb 1.6 oz Intake: Oral 480 480 240 Output: Urine Catheter Amount 495 590 320 Stool 250 200 Other: Meal Dinner Breakfast Percent of Meal Consumed 100% 100% Feeding Ability Independent Urine Appearance Hematuria Hematuria Uretheral (Rojas) Hematuria Hematuria Urine Color Red Brown Red Brown Red Brown Uretheral (Rojas) Red Brown Red Brown Stool Size Large Stool Color Brown Yellow Stool Consistency Liquid Loose - General Appearance General appearance: well-developed, well-nourished EENT: ATNC Neck: no JVD Respiratory: no kyphosis Cardiology: no murmurs Gastrointestinal: normoactive bowel sounds Integumentary: no rash Neurologic: asterixis - Lab 04/30/19 04:25 04/30/19 04:25 Most recent lab results Calcium 8.7 mg/dl (8.6-10.4) 04/30/19 04:25 Phosphorus 6.4 mg/dL (2.7-4.5) H* 04/30/19 04:25 Magnesium 1.6 mg/dL (1.6-2.5) 04/30/19 04:25 Assessment and Plan (1) BRIELLE (acute kidney injury) Status: Acute Comment: Secondary to probable ATN. CT negative. Not much improvement in renal function. He is uremic. Will start on dialysis with a temporary dialysis catheter.
--- NOTE | 2019-04-30 12:57 | Consultation ---
DATE OF CONSULTATION: 04/28/2019 REQUESTING PHYSICIAN: Benito Bales DO REASON FOR CONSULTATION: Acute renal failure. INDICATIONS: The patient is a 68-year-old gentleman with past medical history significant for chronic kidney disease. I have seen him as an outpatient. Apparently he had some progressive decline in his mental status and labs checked showed a BUN of 83 with a creatinine of 7.9. He had no other significant complaints but he was sent to the emergency room and had a CT of the abdomen and pelvis which did not show any acute pathology. He had a serum bicarbonate of 13 so he is hospitalized. He had a similar episode in July 2018 when he needed acute dialysis. PAST MEDICAL HISTORY: Significant for: 1. History of congestive heart failure thought to be fairly advanced. 2. Dilated cardiomyopathy. 3. Atrial fibrillation on chronic anticoagulation. 4. Hypertension. 5. Chronic kidney disease with a baseline creatinine around 1.5 to 2.0. 6. Gout. FAMILY HISTORY: Significant for arthritis, colon cancer and leukemia. SOCIAL HISTORY: The patient quit smoking 40 years ago. No history of alcohol use. He resides at the [facility]. PHYSICAL EXAMINATION: GENERAL: Alert, awake and not in any distress. HEENT: NC/AT. Pupils are reactive to light. External ear canal appears normal. NECK: Supple. No jugular venous distention. No lymphadenopathy. No thyromegaly. LUNGS: Decreased air entry bilaterally. No rales or rhonchi heard. CARDIAC: S1 and S2 heard. No S3, S4. No murmurs, no rubs. ABDOMEN: Soft, nontender. No organomegaly. Positive bowel sounds. No mass, no rebound. EXTREMITIES: Did not have evidence of edema; difficult to palpate his dorsalis pedis and posterior tibials. No skin rash or joint swellings noted. NEUROLOGIC: Grossly intact. LABORATORY DATA: White count 10.2 with hemoglobin of 10.9 and a platelet count of 286. Sodium 135, potassium 4.7, chloride 103, CO2 13, BUN 82 with a creatinine of 7.9, protein 3.3. ASSESSMENT AND PLAN: 1. Acute kidney injury, most likely secondary to acute tubular necrosis. He could have interstitial nephritis as he had some rash over the last few weeks. His urinalysis is somewhat benign with 0 protein, 2 red cells and [address] scan did not show any obstructive process. At this time, we will watch. He is off of the FLOR inhibitors and diuretics. We will see if the renal function will improve in the next day or two. We will also check urine for eosinophils and urine electrolytes. If the renal function does not improve, he may need temporary dialysis. 2. Metabolic acidosis. We will recommend IV bicarbonate drip, as being done. Thank you Dr. Bales, for referring this patient for consultation. I will follow with you. IRAM:sanket Job ID: [id number] Doc ID: [id number] Aditya Bales DO
--- NOTE | 2019-04-30 13:17 | Procedure Note ---
DATE OF PROCEDURE: 04/30/2019 NAME OF PROCEDURE: Placement of a temporary dialysis catheter. INDICATION: For initiation of hemodialysis. An informed medical consent was obtained and I spoke with the patient's son, Wil. The area of the right side of the groin is cleaned with ChloraPrep and draped. Under ultrasound guidance femoral vein was studied. The vein is anatomically underneath the artery. Attempted to access the vein two times, but I kept accessing the artery. For that reason, it was abandoned and we moved to the left side. Again, under ultrasound guidance, the anatomy is still difficult and the vein is still inferior to the artery. I went ahead and accessed it with an 18-gauge needle and then a wire was passed into the femoral vein. Subsequently, the femoral vein was dilated using serial dilators and a dilator with a peel-away sheath was introduced. Finally, the dilator was removed and the Mahukar dialysis catheter was inserted into the femoral vein. The catheter was secured to the groin. The right groin area we applied pressure and watched for bleeding. I also put some pressure weight on it. The patient tolerated the procedure fairly well. No immediate complication noted besides the hematoma on the right groin. IRAM:sanket Job ID: [id number] Doc ID: [id number] Aditya Bales DO
[2019-04-30] MEDS: PIPERACILLIN SODIUM/TAZOBACTAM 2.25 GM in DEXTROSE 5% IN WATER 50 ML IV SCH ×2 (14:11→22:25)
[2019-04-30 19:26] LABS: Prothrombin Time 22.6 sec (11.9-14.5)
[2019-04-30] MEDS ORDERED: CARVEDILOL 3.125 MG TABLET PO SCH (21:00)
[2019-04-30] MEDS ORDERED: hydrOXYzine 25 MG TABLET PO PRN (21:00)
[2019-04-30] MEDS: FAMOTIDINE/PF 20 MG/2 ML VIAL IV SCH (22:27)
[2019-04-30] MEDS: ACETAMINOPHEN 325 MG TABLET PO PRN (22:27)
[2019-04-30] MEDS: MELATONIN 3 MG TABLET PO SCH (22:28)
[2019-04-30] MEDS: SERTRALINE 100 MG TABLET PO SCH (22:29)
[2019-04-30] MEDS: GABAPENTIN 100 MG CAPSULE PO SCH (22:29)
[2019-04-30] MEDS: traZODone HCL 50 MG TABLET PO SCH (22:29)
[2019-04-30] MEDS: 0.9 % SODIUM CHLORIDE 250 ML IV SCH (23:00)
[2019-04-30] MEDS ORDERED: VASOPRESSIN 20 UNIT/ML VIAL ONE (23:19)
[2019-04-30] MEDS: VASOPRESSIN 20 UNIT in DEXTROSE 5% IN WATER 99 ML IV SCH (23:21)
[2019-04-30] MEDS: ATORVASTATIN 20 MG TABLET PO SCH (23:22)
[2019-05-01 05:35] LABS: Basophils # (Auto) 0 K/mcL (0.0-0.3); Basophils % (Auto) 0.1 % (0.0-2.0); Eosinophils # (Auto) 0.2 K/mcL (0.0-0.7); Eosinophils % (Auto) 0.9 % (0.0-7.0); Granulocytes % (Auto) 83.1 % (38.0-78.0); Hematocrit 28.3 % (41.0-55.0); Hemoglobin 9.4 g/dL (13.5-16.5); Lymphocytes # (Auto) 1.5 K/mcL (1.5-4.8); Mean Cell Volume 97.5 fL (80.0-100.0); Mean Corpuscular HGB Conc 33.1 g/dL (31.0-36.0); Monocytes # (Auto) 1.5 K/mcL (0.1-0.9); Monocytes % (Auto) 7.9 % (1.0-12.0); Platelet Count 228 K/mcL (140-440); WBC 18.5 K/mcL (4.5-11.0)
[2019-05-01] MEDS: PIPERACILLIN SODIUM/TAZOBACTAM 2.25 GM in DEXTROSE 5% IN WATER 50 ML IV SCH ×3 (05:44→21:31)
[2019-05-01] MEDS: 0.9 % SODIUM CHLORIDE 10 ML SYRINGE IV SCH ×3 (05:45→21:31)
[2019-05-01 06:06] LABS: C-Reactive Protein 19.7 mg/dl (0.0-0.8); INR 1.7 (0.9-1.1); Prothrombin Time 19.6 sec (11.9-14.5)
[2019-05-01 06:13] LABS: ALT/SGPT 9 U/l (0-40); AST/SGOT 14 U/l (0-37); Albumin 2.6 gm/dL (3.2-5.2); Albumin/Globulin Ratio 0.7 (1.0-2.3); Alkaline Phosphatase 98 U/L (39-117); Bilirubin,Direct < 0.2 mg/dL (0.0-0.3); Bilirubin,Total 0.5 mg/dL (0.0-1.0); Blood Urea Nitrogen 44 mg/dl (8-23); Calcium 8.5 mg/dl (8.6-10.4); Carbon Dioxide 21 mmol/L (22-30); Chloride 98 mmol/L (96-108); Globulin 3.6 gm/dL (2.2-3.7); Glomerular Filtration Rate 12; Glucose 137 mg/dL (70-105); Lactate Dehydrogenase 214 U/L (94-250); Phosphorous 5.1 mg/dL (2.7-4.5); Triglycerides 102 mg/dl (<150)
[2019-05-01 06:53] LABS: Erythrocyte Sedimentation Rate 93 mm/hr (0-15)
[2019-05-01] MEDS: VASOPRESSIN 20 UNIT in DEXTROSE 5% IN WATER 99 ML IV SCH (07:02)
[2019-05-01] MEDS: INSULIN LISPRO 1 UNIT/0.01 ML UNIT SQ SCH ×4 (07:16→20:19)
--- NOTE | 2019-05-01 07:53 | Internal Med Progress Note ---
Medical - PN: Subj Patient information: Note initiated : 05/01/19 at 7:53 am Service Date, if different from initiated Date: [] Patient: Eliezer Mahmood 68 y/o M admitted on 04/27/19 for Elevated creatnine. Chief Complaint: [] Interval history: Mr. Mahmood is a 68 year old M Who was sent in from the group home facility for abnormal labs. His creatinine was found to be 7.9 with a BUN of 83. He is asymptomatic. Has no nausea or vomiting, no lethargy or or altered mental status of any kind. States he is urinating okay and denies any hematuria. Denies flank pain or abdominal pain. No chest pain shortness of breath. Denies new medications except for some drops for his eyes. He takes Lasix twice daily but says that has not changed recently. Denies edema his legs, states sometimes he gets swelling in his ankles but not very often. Did have a rash beginning of the month which was there for a month or so but that has resolved. In the ED he had a work-up including CT abdomen pelvis which showed no acute pathology, it was without contrast. Is acidotic with bicarb of 13. Vital signs are stable. Actiq acidosis. Urine with trace blood and hyaline casts. Urine eosinophils unremarkable Case was discussed with Dr. Capellan. Who will follow and patient started on bicarb drip. Old records report in July 2018 he was found unresponsive with a creatinine of 8 and a BUN of 90. He was flown to [place] at that time from [facility] as they did not have any ICU beds available or ability to do emergent dialysis. Patient does not recall how long he was up there and he does not believe he was on hemodialysis or is ever been. His kidneys seem to improve and it appears his baseline creatinine is around 2-2-1/2 as of the past couple months prior to that seem to be close to 2 usually. 04/28 Slept well. No complaints. Urinating. Hematuria and Rojas bag today, traumatic Rojas while patient getting into bed. Not much improvement in creatinine today. Bicarb drip running slowly. 04/29 Sleeping fine and no overnight events. Hematuria. Feeling relatively fine, no change 04/30 Seems to feel little better today. Still has a hematuria but not as dark. No new complaints. Creatinine slowly trending down. White blood cells up afebrile. Addendum 11:30 PM received nurse call for patient systolics dropping to 70s with significant change in mental status/poorly responsive state. Patient in septic shock. Emergently started vasopressors to keep map at goal. Patient is on HD. Avoid excessive fluid challenge. Continue broad antibiotic coverage. - Constitutional Vitals: Vital Signs Temp Pulse Resp BP Pulse Ox 99.4 F H 80 16 126/86 93 05/01/19 07:11 05/01/19 07:27 05/01/19 07:11 05/01/19 07:11 05/01/19 07:11 Period Temp Pulse Resp BP Sys/[place] Pulse Ox Last 24 Hr 97.0 F-103 F 78-88 16-20 62-159/45-129 86-99 Intake and Output 04/30/19 05/01/19 05/01/19 21:59 05:59 13:59 Intake Total 425 410 142 Output Total 400 1075 Balance 25 -665 142 Weight 220 lb 8 oz Intake & Output: Intake & Output 04/30/19 05/01/19 05/01/19 21:59 05:59 13:59 Intake Total 425 410 142 Output Total 400 1075 Balance 25 -665 142 Weight 220 lb 8 oz Intake: IV 50 50 142 Zosyn 2.25 gm In Dextrose 5% in 50 50 50 Water 50 ml @ 100 mls/hr IV Q8H JEM Rx#:[id number] Vasostrict 20 Unit In Dextrose 92 5% in Water 99 ml @ 0.04 UNIT/ MIN 12 mls/hr IV Q8H JEM Rx#: [id number] Oral 360 Blood Product 375 Output: Urine Catheter Amount 400 425 Stool 650 Other: Urine Appearance Sediment Uretheral (Rojas) Hematuria Hematuria Urine Color Red Brown Uretheral (Rojas) Red Brown Red Brown Exam: Lethargic and confused Appears pale and clammy skin paced rhythm Nonlabored breathing Medical - PN: Obj Da - Labs CBC & Chem 7: 05/01/19 03:55 05/01/19 03:55 Labs: Abnormal Lab Results 05/01/19 05/01/19 05/01/19 03:55 03:55 03:55 WBC RBC Hgb Hct RDW Gran % Lymph % (Auto) Gran # Lymph # (Auto) [place] # (Auto) Seg Neutrophils % Lymphocytes % ESR PT 19.6 H INR 1.7 H Carbon Dioxide 21 L Anion Gap 17.0 H BUN 44 H Creatinine 4.8 H Glucose 137 H Calcium 8.5 L Phosphorus 5.1 H Total Creatine Kinase C-Reactive Protein 19.7 H NT-Pro-B Natriuret Pep Albumin 2.6 L Globulin Albumin/Globulin Ratio 0.7 L Urine Protein Urine Glucose (UA) Urine Ketones Urine Occult Blood Ur Leukocyte Esterase Urine RBC Urine WBC 05/01/19 04/30/19 04/30/19 03:55 18:01 04:25 WBC 18.5 H RBC 2.90 L Hgb 9.4 L Hct 28.3 L RDW 15.0 H Gran % 83.1 H Lymph % (Auto) 8.0 L Gran # 15.3 H Lymph # (Auto) [place] # (Auto) 1.5 H Seg Neutrophils % Lymphocytes % ESR 93 H PT 22.6 H INR 2.0 H Carbon Dioxide Anion Gap BUN Creatinine Glucose Calcium Phosphorus Total Creatine Kinase C-Reactive Protein NT-Pro-B Natriuret Pep 81348.0 H Albumin Globulin Albumin/Globulin Ratio Urine Protein Urine Glucose (UA) Urine Ketones Urine Occult Blood Ur Leukocyte Esterase Urine RBC Urine WBC 04/30/19 04/30/19 04/30/19 04:25 04:25 04:25 WBC 23.0 H RBC 3.26 L Hgb 10.5 L Hct 31.6 L RDW 15.1 H Gran % Lymph % (Auto) Gran # Lymph # (Auto) [place] # (Auto) Seg Neutrophils % 84 H Lymphocytes % 9 L ESR PT 36.3 H INR 3.7 H Carbon Dioxide 18 L Anion Gap 19.0 H BUN 79 H Creatinine 7.0 H* Glucose Calcium Phosphorus 6.4 H* Total Creatine Kinase C-Reactive Protein NT-Pro-B Natriuret Pep Albumin 2.6 L Globulin 3.9 H Albumin/Globulin Ratio 0.7 L Urine Protein Urine Glucose (UA) Urine Ketones Urine Occult Blood Ur Leukocyte Esterase Urine RBC Urine WBC 04/29/19 04/29/19 04/29/19 10:50 08:18 08:08 WBC RBC Hgb Hct RDW Gran % Lymph % (Auto) Gran # Lymph # (Auto) [place] # (Auto) Seg Neutrophils % 84 H Lymphocytes % 6 L ESR PT INR Carbon Dioxide Anion Gap BUN Creatinine Glucose Calcium Phosphorus Total Creatine Kinase C-Reactive Protein 10.9 H NT-Pro-B Natriuret Pep 78413.0 H Albumin Globulin Albumin/Globulin Ratio Urine Protein Urine Glucose (UA) Urine Ketones Urine Occult Blood Ur Leukocyte Esterase Urine RBC Urine WBC 04/29/19 04/29/19 04/29/19 04:08 04:08 04:08 WBC 17.8 H RBC 3.42 L Hgb 10.9 L Hct 33.1 L RDW 15.3 H Gran % 82.1 H Lymph % (Auto) 7.7 L Gran # 14.6 H Lymph # (Auto) 1.4 L [place] # (Auto) 1.5 H Seg Neutrophils % Lymphocytes % ESR PT 47.7 H INR 5.3 H Carbon Dioxide 20 L Anion Gap BUN 78 H Creatinine 7.4 H* Glucose Calcium Phosphorus 6.3 H* Total Creatine Kinase C-Reactive Protein NT-Pro-B Natriuret Pep Albumin 2.9 L Globulin 3.8 H Albumin/Globulin Ratio 0.8 L Urine Protein Urine Glucose (UA) Urine Ketones Urine Occult Blood Ur Leukocyte Esterase Urine RBC Urine WBC 04/28/19 04/28/19 12:25 09:55 WBC RBC Hgb Hct RDW Gran % Lymph % (Auto) Gran # Lymph # (Auto) [place] # (Auto) Seg Neutrophils % Lymphocytes % ESR PT INR Carbon Dioxide Anion Gap BUN Creatinine Glucose Calcium Phosphorus Total Creatine Kinase 208 H C-Reactive Protein NT-Pro-B Natriuret Pep Albumin Globulin Albumin/Globulin Ratio Urine Protein 100 A Urine Glucose (UA) 50 A Urine Ketones 5/tr A Urine Occult Blood 0.2 A Ur Leukocyte Esterase 75 A Urine RBC > 182 H Urine WBC > 182 H Meds: Medications Acetaminophen (Tylenol) 650 mg PO Q4-6HP PRN PRN Reason: PAIN/FEVER > 101 Last Admin: 04/30/19 22:27 Dose: 650 mg Documented by: Albuterol/Ipratropium (Duoneb) 3 ml NEB Q6HRT PRN PRN Reason: Bronchospasm Allopurinol (Zyloprim) 50 mg PO DAILY [facility] Artificial Tears (Artificial Tears Ophth Drops) 1 gtt OU DAILY [facility] Atorvastatin Calcium (Lipitor) 5 mg PO HS [facility] Last Admin: 04/30/19 23:22 Dose: 5 mg Documented by: Bisacodyl (Dulcolax) 10 mg AK DAILYP PRN PRN Reason: Constipation Carvedilol (Coreg) 3.125 mg PO BIDCC [facility] Clonazepam (Klonopin) 0.25 mg PO DAILY [facility] Dextrose (Dextrose 50%) 0 ml IV UD PRN PRN Reason: Hypoglycemia Diagnostic Test (Pha) (Accu-Chek) 1 each FS [facility] Last Admin: 05/01/19 07:16 Dose: 1 each Documented by: Docusate Sodium (Colace) 100 mg PO BID [facility] Last Admin: 04/30/19 22:27 Dose: Not Given Documented by: Famotidine (Pepcid) 20 mg IV [facility] Last Admin: 04/30/19 22:27 Dose: 20 mg Documented by: Gabapentin (Neurontin) 100 mg PO [facility] Last Admin: 04/30/19 22:29 Dose: 100 mg Documented by: Glucose (Insta-Glucose) 15 gm PO PRN PRN PRN Reason: Hypoglycemia Hydroxyzine HCl (Atarax) 0 mg PO HSP PRN PRN Reason: Insomnia Piperacillin Sod/Tazobactam (Sod 2.25 gm/ Dextrose) 50 mls @ 100 mls/hr IV Q8H [facility]; Protocol Last Infusion: 05/01/19 06:44 Dose: Infused Documented by: Sodium Chloride (Sodium Chloride 0.9%) 250 mls @ 20 mls/hr IV .[id number] [facility] Last Admin: 04/30/19 23:00 Dose: 20 mls/hr Documented by: Vasopressin 20 unit/ Dextrose 100 mls @ 12 mls/hr IV Q8H [facility]; Protocol Last Admin: 05/01/19 07:02 Dose: 0.04 unit/min, 12 mls/hr Documented by: Insulin Glargine (Lantus) 2 unit SQ BID [facility] Last Admin: 04/30/19 23:17 Dose: Not Given Documented by: Insulin Human Lispro (Humalog) 0 unit SQ [facility]; Protocol Last Admin: 05/01/19 07:16 Dose: 2 units Documented by: Labetalol HCl (Trandate) 0 mg IV Q2HP PRN PRN Reason: Hypertension Melatonin (Melatonin 3mg Tablet) 9 mg PO [facility] Last Admin: 04/30/19 22:28 Dose: 9 mg Documented by: Memantine (Namenda) 10 mg PO BID [facility] Last Admin: 04/30/19 22:29 Dose: 10 mg Documented by: Misoprostol (Cytotec) 100 mcg PO DAILY [facility] Mupirocin (Bactroban Oint 2%) 1 dose NARES BID [facility] Last Admin: 04/30/19 22:26 Dose: 1 dose Documented by: Ondansetron HCl (Zofran) 4 mg IV Q4-6HP PRN PRN Reason: Nausea And Vomiting Loteprednol Etabonate [Lotemax] 0.5% Ophthalmic Suspension 1 dose OU QID [facility] Last Admin: 04/30/19 23:53 Dose: 1 dose Documented by: Nepafenac [Ilevro] 0 .3% Ophthalmic Suspension 1 dose OU DAILY [facility] Last Admin: 04/30/19 13:44 Dose: 1 dose Documented by: Promethazine HCl (Phenergan) 12.5 mg IV Q4-6HP PRN PRN Reason: Nausea And Vomiting Ropinirole HCl (Requip) 1 mg PO BID [facility] Last Admin: 04/30/19 22:28 Dose: 1 mg Documented by: Sertraline HCl (Zoloft) 150 mg PO [facility] Last Admin: 04/30/19 22:29 Dose: 150 mg Documented by: Sodium Chloride (Saline Flush) 10 ml IV Q8 [facility] Last Admin: 05/01/19 05:45 Dose: 10 ml Documented by: Trazodone HCl (Desyrel) 50 mg PO [facility] Last Admin: 04/30/19 22:29 Dose: 50 mg Documented by: Warfarin Sodium (Coumadin Per Pharmacy) 1 order PO UD [facility] Medical - PN: A/P - Time Spent With Patient Total time spent is greater than 50% in coordination of care (as documented) at patient's floor/unit and/or counseling patient: Greater than 35 minutes (1) Shock circulatory Status: Acute Assessment and plan: * Septic shock secondary to E. coli UTI-patient systolics low 70s. Started on vasopressors, target map 65+. Status post hemodialysis today. Leukocytosis downtrending from 23-18.5 on meropenem for ESBL UTI. Switch to Zosyn as per ID recommendations. * Sepsis with leukocytosis 23,000 secondary to ESBL E. coli. * Acute on chronic kidney disease. On hemodialysis. Status post HD catheter placement by nephrology. * Atrial fibrillation currently on Coreg, * Anticoagulation reversal status post vitamin K/2 units FFP secondary to bleeding at femoral dialysis catheter site * Dilated cardiomyopathy 20% EF with AICD/pacemaker * DM type II * History of CVA * Chronic anemia-managed by nephrology * History of depression * History of gout on allopurinol * Neuropathy on gabapentin * Alzheimer's dementia * History of GERD * Full code Plan * Initiate vasopressors * Continue broad antibiotic coverage * Septic shock management per guidelines * Hold Coreg Critical care time spent on treatment of septic shock including management of vasopressors over 35 minutes Current Visit: Yes Medical - PN: Qual - VTE Deep Vein Thrombosis/Pulmonary Embolism Present on Admission: No
--- NOTE | 2019-05-01 08:29 | Internal Med Progress Note ---
Medical - PN: Subj Patient information: Note initiated : 05/01/19 at 8:26 am Service Date, if different from initiated Date: [] Patient: Eliezer Mahmood 68 y/o M admitted on 04/27/19 for Elevated creatnine. Chief Complaint: [] Interval history: Mr. Mahmood is a 68 year old M Who [facility]. His creatinine was found to be 7.9 with a BUN of 83. He is asymptomatic. Has no nausea or vomiting, no lethargy or or altered mental status of any kind. States he is urinating okay and denies any hematuria. Denies flank pain or abdominal pain. No chest pain shortness of breath. Denies new medications except for some drops for his eyes. He takes Lasix twice daily but says that has not changed recently. Denies edema his legs, states sometimes he gets swelling in his ankles but not very often. Did have a rash beginning of the month which was there for a month or so but that has resolved. In the ED he had a work-up including CT abdomen pelvis which showed no acute pathology, it was without contrast. Is acidotic with bicarb of 13. Vital signs are stable. Actiq acidosis. Urine with trace blood and hyaline casts. Urine eosinophils unremarkable Case was discussed with Dr. Capellan. Who will follow and patient started on bicarb drip. Old records report in July 2018 he was found unresponsive with a creatinine of 8 and a BUN of 90. He was [facility] time from [facility] as they did not have any ICU beds available or ability to do emergent dialysis. Patient does not recall how long he was up there and he does not believe he was on hemodialysis or is ever been. His kidneys seem to improve and it appears his baseline creatinine is around 2-2-1/2 as of the past couple months prior to that seem to be close to 2 usually. 04/28 Slept well. No complaints. Urinating. Hematuria and Rojas bag today, traumatic Rojas while patient getting into bed. Not much improvement in creatinine today. Bicarb drip running slowly. 04/29 Sleeping fine and no overnight events. Hematuria. Feeling relatively fine, no change 04/30 Seems to feel little better today. Still has a hematuria but not as dark. No new complaints. Creatinine slowly trending down. White blood cells up afebrile. Addendum 11:30 PM received nurse call for patient systolics dropping to 70s with significant change in mental status/poorly responsive state. Patient in septic shock. Emergently started vasopressors to keep map at goal. Patient is on HD. Avoid excessive fluid challenge. Continue broad antibiotic coverage. 05/01-patient systolics improved to 140s. Titrating vasopressors down. Continue antibiotic coverage. White count downTo 18.5 from 23,000. INR down from 171.7 status post vitamin K/FFP. Improved metabolic post hemodialysis. Mental s tatus improved and now more alert and responding to verbal commands. Intermittently confused. No telemetry events - Constitutional Vitals: Vital Signs Temp Pulse Resp BP Pulse Ox 99.4 F H 80 16 126/86 93 05/01/19 07:11 05/01/19 07:27 05/01/19 07:11 05/01/19 07:11 05/01/19 07:11 Period Temp Pulse Resp BP Sys/[place] Pulse Ox Last 24 Hr 97.0 F-103 F 79-88 16-20 62-159/45-129 86-99 Intake and Output 04/30/19 05/01/19 05/01/19 21:59 05:59 13:59 Intake Total 425 410 142 Output Total 400 1075 Balance 25 -665 142 Weight 220 lb 8 oz Intake & Output: Intake & Output 04/30/19 05/01/19 05/01/19 21:59 05:59 13:59 Intake Total 425 410 142 Output Total 400 1075 Balance 25 -665 142 Weight 220 lb 8 oz Intake: IV 50 50 142 Zosyn 2.25 gm In Dextrose 5% in 50 50 50 Water 50 ml @ 100 mls/hr IV Q8H [facility] Rx#:[id number] Vasostrict 20 Unit In Dextrose 92 5% in Water 99 ml @ 0.04 UNIT/ MIN 12 mls/hr IV Q8H [facility] Rx#: [id number] Oral 360 Blood Product 375 Output: Urine Catheter Amount 400 425 Stool 650 Other: Urine Appearance Sediment Uretheral (Rojas) Hematuria Hematuria Urine Color Red Brown Uretheral (Rojas) Red Brown Red Brown General appearance: no acute distress Exam: Intermittently confused Nonlabored breathing Paced rhythm on telemetry No anxiety Medical - PN: Obj Da - Labs CBC & Chem 7: 05/01/19 03:55 05/01/19 03:55 Labs: Abnormal Lab Results 05/01/19 05/01/19 05/01/19 03:55 03:55 03:55 WBC RBC Hgb Hct RDW Gran % Lymph % (Auto) Gran # Lymph # (Auto) [place] # (Auto) Seg Neutrophils % Lymphocytes % ESR PT 19.6 H INR 1.7 H Carbon Dioxide 21 L Anion Gap 17.0 H BUN 44 H Creatinine 4.8 H Glucose 137 H Calcium 8.5 L Phosphorus 5.1 H Total Creatine Kinase C-Reactive Protein 19.7 H NT-Pro-B Natriuret Pep Albumin 2.6 L Globulin Albumin/Globulin Ratio 0.7 L Urine Protein Urine Glucose (UA) Urine Ketones Urine Occult Blood Ur Leukocyte Esterase Urine RBC Urine WBC 05/01/19 04/30/19 04/30/19 03:55 18:01 04:25 WBC 18.5 H RBC 2.90 L Hgb 9.4 L Hct 28.3 L RDW 15.0 H Gran % 83.1 H Lymph % (Auto) 8.0 L Gran # 15.3 H Lymph # (Auto) [place] # (Auto) 1.5 H Seg Neutrophils % Lymphocytes % ESR 93 H PT 22.6 H INR 2.0 H Carbon Dioxide Anion Gap BUN Creatinine Glucose Calcium Phosphorus Total Creatine Kinase C-Reactive Protein NT-Pro-B Natriuret Pep 27234.0 H Albumin Globulin Albumin/Globulin Ratio Urine Protein Urine Glucose (UA) Urine Ketones Urine Occult Blood Ur Leukocyte Esterase Urine RBC Urine WBC 04/30/19 04/30/19 04/30/19 04:25 04:25 04:25 WBC 23.0 H RBC 3.26 L Hgb 10.5 L Hct 31.6 L RDW 15.1 H Gran % Lymph % (Auto) Gran # Lymph # (Auto) [place] # (Auto) Seg Neutrophils % 84 H Lymphocytes % 9 L ESR PT 36.3 H INR 3.7 H Carbon Dioxide 18 L Anion Gap 19.0 H BUN 79 H Creatinine 7.0 H* Glucose Calcium Phosphorus 6.4 H* Total Creatine Kinase C-Reactive Protein NT-Pro-B Natriuret Pep Albumin 2.6 L Globulin 3.9 H Albumin/Globulin Ratio 0.7 L Urine Protein Urine Glucose (UA) Urine Ketones Urine Occult Blood Ur Leukocyte Esterase Urine RBC Urine WBC 04/29/19 04/29/19 04/29/19 10:50 08:18 08:08 WBC RBC Hgb Hct RDW Gran % Lymph % (Auto) Gran # Lymph # (Auto) [place] # (Auto) Seg Neutrophils % 84 H Lymphocytes % 6 L ESR PT INR Carbon Dioxide Anion Gap BUN Creatinine Glucose Calcium Phosphorus Total Creatine Kinase C-Reactive Protein 10.9 H NT-Pro-B Natriuret Pep 75349.0 H Albumin Globulin Albumin/Globulin Ratio Urine Protein Urine Glucose (UA) Urine Ketones Urine Occult Blood Ur Leukocyte Esterase Urine RBC Urine WBC 04/29/19 04/29/19 04/29/19 04:08 04:08 04:08 WBC 17.8 H RBC 3.42 L Hgb 10.9 L Hct 33.1 L RDW 15.3 H Gran % 82.1 H Lymph % (Auto) 7.7 L Gran # 14.6 H Lymph # (Auto) 1.4 L [place] # (Auto) 1.5 H Seg Neutrophils % Lymphocytes % ESR PT 47.7 H INR 5.3 H Carbon Dioxide 20 L Anion Gap BUN 78 H Creatinine 7.4 H* Glucose Calcium Phosphorus 6.3 H* Total Creatine Kinase C-Reactive Protein NT-Pro-B Natriuret Pep Albumin 2.9 L Globulin 3.8 H Albumin/Globulin Ratio 0.8 L Urine Protein Urine Glucose (UA) Urine Ketones Urine Occult Blood Ur Leukocyte Esterase Urine RBC Urine WBC 04/28/19 04/28/19 12:25 09:55 WBC RBC Hgb Hct RDW Gran % Lymph % (Auto) Gran # Lymph # (Auto) [place] # (Auto) Seg Neutrophils % Lymphocytes % ESR PT INR Carbon Dioxide Anion Gap BUN Creatinine Glucose Calcium Phosphorus Total Creatine Kinase 208 H C-Reactive Protein NT-Pro-B Natriuret Pep Albumin Globulin Albumin/Globulin Ratio Urine Protein 100 A Urine Glucose (UA) 50 A Urine Ketones 5/tr A Urine Occult Blood 0.2 A Ur Leukocyte Esterase 75 A Urine RBC > 182 H Urine WBC > 182 H Meds: Medications Acetaminophen (Tylenol) 650 mg PO Q4-6HP PRN PRN Reason: PAIN/FEVER > 101 Last Admin: 04/30/19 22:27 Dose: 650 mg Documented by: Albuterol/Ipratropium (Duoneb) 3 ml NEB Q6HRT PRN PRN Reason: Bronchospasm Allopurinol (Zyloprim) 50 mg PO DAILY [facility] Artificial Tears (Artificial Tears Ophth Drops) 1 gtt OU DAILY [facility] Atorvastatin Calcium (Lipitor) 5 mg PO [facility] Last Admin: 04/30/19 23:22 Dose: 5 mg Documented by: Bisacodyl (Dulcolax) 10 mg SC DAILYP PRN PRN Reason: Constipation [facility] Clonazepam (Klonopin) 0.25 mg PO DAILY [facility] Dextrose (Dextrose 50%) 0 ml IV UD PRN PRN Reason: Hypoglycemia Diagnostic Test (Pha) (Accu-Chek) 1 each FS [facility] Last Admin: 05/01/19 07:16 Dose: 1 each Documented by: Docusate Sodium (Colace) 100 mg PO BID [facility] Last Admin: 04/30/19 22:27 Dose: Not Given Documented by: Famotidine (Pepcid) 20 mg IV [facility] Last Admin: 04/30/19 22:27 Dose: 20 mg Documented by: Gabapentin (Neurontin) 100 mg PO [facility] Last Admin: 04/30/19 22:29 Dose: 100 mg Documented by: Glucose (Insta-Glucose) 15 gm PO PRN PRN PRN Reason: Hypoglycemia Hydroxyzine HCl (Atarax) 0 mg PO HSP PRN PRN Reason: Insomnia Piperacillin Sod/Tazobactam (Sod 2.25 gm/ Dextrose) 50 mls @ 100 mls/hr IV Q8H [facility]; Protocol Last Infusion: 05/01/19 06:44 Dose: Infused Documented by: Sodium Chloride (Sodium Chloride 0.9%) 250 mls @ 20 mls/hr IV .[id number] [facility] Last Admin: 04/30/19 23:00 Dose: 20 mls/hr Documented by: Vasopressin 20 unit/ Dextrose 100 mls @ 12 mls/hr IV Q8H [facility]; Protocol Last Admin: 05/01/19 07:02 Dose: 0.04 unit/min, 12 mls/hr Documented by: Insulin Glargine (Lantus) 2 unit SQ BID [facility] Last Admin: 04/30/19 23:17 Dose: Not Given Documented by: Insulin Human Lispro (Humalog) 0 unit SQ [facility]; Protocol Last Admin: 05/01/19 07:16 Dose: 2 units Documented by: Labetalol HCl (Trandate) 0 mg IV Q2HP PRN PRN Reason: Hypertension Melatonin (Melatonin 3mg Tablet) 9 mg PO [facility] Last Admin: 04/30/19 22:28 Dose: 9 mg Documented by: Memantine (Namenda) 10 mg PO BID [facility] Last Admin: 04/30/19 22:29 Dose: 10 mg Documented by: Misoprostol (Cytotec) 100 mcg PO DAILY [facility] Mupirocin (Bactroban Oint 2%) 1 dose NARES BID [facility] Last Admin: 04/30/19 22:26 Dose: 1 dose Documented by: Ondansetron HCl (Zofran) 4 mg IV Q4-6HP PRN PRN Reason: Nausea And Vomiting Loteprednol Etabonate [Lotemax] 0.5% Ophthalmic Suspension 1 dose OU QID [facility] Last Admin: 04/30/19 23:53 Dose: 1 dose Documented by: Nepafenac [Ilevro] 0 .3% Ophthalmic Suspension 1 dose OU DAILY [facility] Last Admin: 04/30/19 13:44 Dose: 1 dose Documented by: Promethazine HCl (Phenergan) 12.5 mg IV Q4-6HP PRN PRN Reason: Nausea And Vomiting Ropinirole HCl (Requip) 1 mg PO BID [facility] Last Admin: 04/30/19 22:28 Dose: 1 mg Documented by: Sertraline HCl (Zoloft) 150 mg PO [facility] Last Admin: 04/30/19 22:29 Dose: 150 mg Documented by: Sodium Chloride (Saline Flush) 10 ml IV Q8 [facility] Last Admin: 05/01/19 05:45 Dose: 10 ml Documented by: Trazodone HCl (Desyrel) 50 mg PO [facility] Last Admin: 04/30/19 22:29 Dose: 50 mg Documented by: Warfarin Sodium (Coumadin Per Pharmacy) 1 order PO [facility] Medical - PN: A/P - Time Spent With Patient Total time spent is greater than 50% in coordination of care (as documented) at patient's floor/unit and/or counseling patient: Greater than 35 minutes (Critical care time) (1) Shock circulatory Status: Acute Assessment and plan: * Septic shock secondary to E. coli UTI-patient systolics low 70s. Started on vasopressors, target map 65+. Status post hemodialysis today. Leukocytosis downtrending 18.5 on Zosyn for ESBL UTI. * Sepsis with leukocytosis 23,000 secondary to ESBL E. coli. * Acute on chronic kidney disease. On hemodialysis. Status post HD catheter placement by nephrology. * Atrial fibrillation rate controlled, paced rhythm. Coreg on hold * Anticoagulation reversal status post vitamin K/2 units FFP secondary to bleeding at femoral dialysis catheter site. Restart anticoagulation today * Dilated cardiomyopathy 20% EF with AICD/pacemaker * DM type II-continue basal prandial insulin * History of CVA-restart anticoagulation * Chronic anemia-managed by nephrology * History of depression * History of gout on allopurinol * Neuropathy on gabapentin * Alzheimer's dementia * History of GERD * Full code Plan * wean vasopressors as tolerated * Continue broad antibiotic coverage * Restart anticoagulation on Coumadin * Prior medical issue management to continue on home meds except for antihypertensives Critical care time spent on treatment of septic shock including management of vasopressors over 35 minutes Current Visit: Yes Medical - PN: Qual - VTE Deep Vein Thrombosis/Pulmonary Embolism Present on Admission: No
[2019-05-01] MEDS: CARVEDILOL 3.125 MG TABLET PO SCH ×2 (08:30→17:33)
[2019-05-01] MEDS: ALLOPURINOL 100 MG TABLET PO SCH (08:34)
[2019-05-01] MEDS: ACETAMINOPHEN 325 MG TABLET PO PRN (08:35)
[2019-05-01] MEDS: INSULIN GLARGINE, HUMAN 1 UNIT/0.01 ML SQ SCH ×2 (08:36→21:31)
[2019-05-01] MEDS: LOTEPREDNOL ETABONATE 0.5% OU SCH ×4 (08:42→20:44)
[2019-05-01] MEDS: POLYVINYL ALCOHOL OPHTH DROPS 15ML BOTTLE OU SCH (08:42)
[2019-05-01] MEDS: MUPIROCIN OINT 2% 22GM NARES SCH ×2 (08:42→20:36)
[2019-05-01] MEDS: NEPAFENAC 0.3% OU SCH (08:42)
[2019-05-01] MEDS: MISOPROSTOL 100 MCG TABLET PO SCH (08:57)
[2019-05-01] MEDS: rOPINIRole 1 MG TABLET PO SCH ×2 (08:57→20:39)
[2019-05-01] MEDS: MEMANTINE 10 MG TABLET PO SCH ×2 (08:57→20:41)
[2019-05-01] MEDS: clonazePAM 0.5 MG TABLET PO SCH (09:03)
[2019-05-01] MEDS: DOCUSATE SODIUM 100 MG CAPSULE PO SCH ×2 (09:04→20:37)
--- NOTE | 2019-05-01 09:19 | Nephrology Progress Note ---
Subjective Patient information: Note initiated : 05/01/19 at 9:13 am Service Date, if different from initiated Date: [] Patient: Eliezer Mahmood 68 y/o M admitted on 04/27/19 for Elevated creatnine. Chief Complaint: [] Feeling a lot better. More awake. No complaints. Objective - Vital Signs Vital signs: Vital Signs Temp Pulse Pulse Resp BP Pulse Ox 05/01/19 07:27 80 05/01/19 07:11 99.4 F H 80 16 126/86 93 05/01/19 07:00 16 96 05/01/19 06:31 134/79 05/01/19 06:01 18 121/68 05/01/19 05:31 110/97 05/01/19 05:16 16 108/65 05/01/19 05:01 115/72 05/01/19 04:46 16 120/71 05/01/19 04:31 80 16 91/53 93 05/01/19 04:16 80 18 105/60 96 05/01/19 04:00 80 20 112/65 90 05/01/19 03:46 100.4 F H 80 16 87/59 93 05/01/19 03:31 80 18 97/58 92 05/01/19 03:16 80 18 101/67 90 05/01/19 03:01 79 20 96/60 95 05/01/19 02:46 80 18 104/60 93 05/01/19 02:31 80 18 103/61 92 05/01/19 02:16 79 16 102/49 91 05/01/19 02:02 79 18 85/52 95 05/01/19 02:01 79 16 86/54 96 05/01/19 01:46 80 97/54 94 05/01/19 01:31 80 95/54 94 05/01/19 01:16 88 94/66 96 05/01/19 01:01 100.8 F H 80 18 94/56 95 05/01/19 00:46 98.8 F 80 18 93/54 94 05/01/19 00:31 80 93/55 94 05/01/19 00:16 80 107/65 93 05/01/19 00:01 80 93/71 93 04/30/19 23:51 81 92/60 94 04/30/19 23:46 80 97/52 93 04/30/19 23:41 80 94/53 93 04/30/19 23:36 80 76/52 90 04/30/19 23:35 101.3 F H 80 67/54 91 04/30/19 23:31 80 62/45 91 04/30/19 23:16 80 76/47 92 04/30/19 23:14 103 F H 80 76/58 92 04/30/19 23:12 103 F H 04/30/19 23:11 82 98 04/30/19 23:01 80 20 89/56 89 L 04/30/19 22:59 81 82/58 94 04/30/19 22:31 156/102 04/30/19 22:27 101.7 F H 04/30/19 22:16 134/104 04/30/19 22:04 134/89 04/30/19 22:01 18 143/83 04/30/19 21:58 101.7 F H 80 145/82 04/30/19 21:57 149/129 04/30/19 21:45 157/93 04/30/19 21:37 80 157/93 04/30/19 21:33 143/91 04/30/19 21:31 143/90 04/30/19 21:25 80 143/91 04/30/19 21:19 157/90 04/30/19 21:16 150/85 04/30/19 21:13 80 157/90 04/30/19 21:07 152/87 04/30/19 21:01 149/96 04/30/19 21:00 80 152/87 04/30/19 20:54 159/94 04/30/19 20:46 80 144/90 04/30/19 20:43 149/95 04/30/19 20:42 146/114 04/30/19 20:33 80 149/95 04/30/19 20:31 144/102 04/30/19 20:20 80 144/102 04/30/19 20:17 142/82 04/30/19 20:06 80 142/80 04/30/19 20:01 143/91 04/30/19 19:53 99.8 F H 80 143/91 04/30/19 19:46 152/97 04/30/19 19:39 80 152/97 04/30/19 19:31 144/89 04/30/19 19:24 80 144/89 04/30/19 19:16 157/99 04/30/19 19:10 81 157/99 04/30/19 19:01 20 146/91 04/30/19 18:54 80 146/91 04/30/19 18:46 140/85 04/30/19 18:44 137/87 04/30/19 18:35 80 140/85 04/30/19 18:31 117/71 04/30/19 18:26 139/78 04/30/19 18:20 80 139/78 04/30/19 18:15 153/97 04/30/19 18:11 147/93 04/30/19 18:04 98 F 80 153/97 04/30/19 18:00 135/90 04/30/19 17:52 112/69 04/30/19 16:39 80 146/95 86 L 04/30/19 16:01 97.0 F 80 115/88 99 04/30/19 15:26 80 143/94 98 04/30/19 15:14 97.0 F 80 150/97 94 04/30/19 15:01 80 134/100 98 04/30/19 13:54 97.6 F 81 146/94 95 04/30/19 13:41 98.0 F 20 137/87 95 04/30/19 12:24 130/93 Intake and Output 04/30/19 05/01/19 05/01/19 21:59 05:59 13:59 Intake Total 425 410 142 Output Total 400 1075 Balance 25 -665 142 Intake: IV 50 50 142 Zosyn 2.25 gm In Dextrose 5% in 50 50 50 Water 50 ml @ 100 mls/hr IV Q8H [facility] Rx#:[id number] Vasostrict 20 Unit In Dextrose 92 5% in Water 99 ml @ 0.04 UNIT/ MIN 12 mls/hr IV Q8H [facility] Rx#: [id number] Oral 360 Blood Product 375 Output: Urine Catheter Amount 400 425 Stool 650 Other: Urine Appearance Sediment Uretheral (Rojas) Hematuria Hematuria Urine Color Red Brown Uretheral (Rojas) Red Brown Red Brown Weight 220 lb 8 oz Intake & Output: Intake & Output 0805/01/19 05/01/19 21:59 05:59 13:59 Intake Total 425 410 142 Output Total 400 1075 Balance 25 -665 142 Weight 220 lb 8 oz Intake: IV 50 50 142 Zosyn 2.25 gm In Dextrose 5% in 50 50 50 Water 50 ml @ 100 mls/hr IV Q8H [facility] Rx#:[id number] Vasostrict 20 Unit In Dextrose 92 5% in Water 99 ml @ 0.04 UNIT/ MIN 12 mls/hr IV Q8H [facility] Rx#: [id number] Oral 360 Blood Product 375 Output: Urine Catheter Amount 400 425 Stool 650 Other: Urine Appearance Sediment Uretheral (Rojas) Hematuria Hematuria Urine Color Red Brown Uretheral (Rojas) Red Brown Red Brown - General Appearance General appearance: well-developed, well-nourished EENT: ATNC Neck: no JVD Respiratory: no kyphosis Cardiology: no murmurs Gastrointestinal: normoactive bowel sounds Integumentary: no rash Neurologic: no focal deficit - Lab 05/01/19 03:55 05/01/19 03:55 Most recent lab results Calcium 8.5 mg/dl (8.6-10.4) L 05/01/19 03:55 Phosphorus 5.1 mg/dL (2.7-4.5) H 05/01/19 03:55 Magnesium 1.6 mg/dL (1.6-2.5) 05/01/19 03:55 Assessment and Plan (1) BRIELLE (acute kidney injury) Status: Acute Comment: Secondary to probable ATN. CT negative. Not much improvement in renal function. He was uremic. Started on dialysis with a temporary dialysis catheter. Will dialyse today and remove the dialysis catheter post dialysis. We will watch the renal function and can be followed as outpatient.
[2019-05-01] MEDS ORDERED: VASOPRESSIN 20 UNIT in DEXTROSE 5% IN WATER 99 ML IV PRN (11:15)
[2019-05-01] MEDS ORDERED: WARFARIN 4 MG TABLET PO ONE (14:00)
[2019-05-01] MEDS: 0.9 % SODIUM CHLORIDE 250 ML IV SCH (17:28)
[2019-05-01] MEDS: ATORVASTATIN 20 MG TABLET PO SCH (20:37)
[2019-05-01] MEDS: SERTRALINE 100 MG TABLET PO SCH (20:39)
[2019-05-01] MEDS: traZODone HCL 50 MG TABLET PO SCH (20:39)
[2019-05-01] MEDS: MELATONIN 3 MG TABLET PO SCH (20:40)
[2019-05-01] MEDS: GABAPENTIN 100 MG CAPSULE PO SCH (20:41)
[2019-05-01] MEDS: FAMOTIDINE/PF 20 MG/2 ML VIAL IV SCH (20:42)
[2019-05-02] MEDS: 0.9 % SODIUM CHLORIDE 250 ML IV SCH (02:58)
[2019-05-02 05:26] LABS: Basophils # (Auto) 0 K/mcL (0.0-0.3); Basophils % (Auto) 0.1 % (0.0-2.0); Eosinophils # (Auto) 0.5 K/mcL (0.0-0.7); Eosinophils % (Auto) 3.7 % (0.0-7.0); Granulocytes % (Auto) 71.8 % (38.0-78.0); Hematocrit 27.3 % (41.0-55.0); Hemoglobin 9.1 g/dL (13.5-16.5); Lymphocytes # (Auto) 1.6 K/mcL (1.5-4.8); Lymphocytes % (Auto) 11.9 % (15.5-49.0); Mean Cell Volume 97.5 fL (80.0-100.0); Mean Corpuscular HGB Conc 33.2 g/dL (31.0-36.0); Mean Platelet Volume 7.8 fL (7.4-10.4); Monocytes # (Auto) 1.7 K/mcL (0.1-0.9); Monocytes % (Auto) 12.5 % (1.0-12.0); Platelet Count 224 K/mcL (140-440); WBC 13.5 K/mcL (4.5-11.0)
[2019-05-02] MEDS: 0.9 % SODIUM CHLORIDE 10 ML SYRINGE IV SCH ×3 (05:32→20:45)
[2019-05-02] MEDS: PIPERACILLIN SODIUM/TAZOBACTAM 2.25 GM in DEXTROSE 5% IN WATER 50 ML IV SCH ×3 (05:32→20:43)
[2019-05-02 05:48] LABS: INR 1.3 (0.9-1.1); Prothrombin Time 16.1 sec (11.9-14.5)
[2019-05-02 05:49] LABS: ALT/SGPT 10 U/l (0-40); AST/SGOT 15 U/l (0-37); Albumin 2.6 gm/dL (3.2-5.2); Albumin/Globulin Ratio 0.7 (1.0-2.3); Alkaline Phosphatase 107 U/L (39-117); Bilirubin,Direct < 0.2 mg/dL (0.0-0.3); Bilirubin,Total 0.3 mg/dL (0.0-1.0); Blood Urea Nitrogen 30 mg/dl (8-23); Calcium 8.5 mg/dl (8.6-10.4); Carbon Dioxide 25 mmol/L (22-30); Chloride 99 mmol/L (96-108); Globulin 3.7 gm/dL (2.2-3.7); Glomerular Filtration Rate 14; Glucose 83 mg/dL (70-105); Lactate Dehydrogenase 207 U/L (94-250); Phosphorous 3.6 mg/dL (2.7-4.5); Triglycerides 97 mg/dl (<150); Uric Acid 2.7 mg/dL (2.5-8.0)
[2019-05-02] MEDS: ALLOPURINOL 100 MG TABLET PO SCH (08:21)
[2019-05-02] MEDS: rOPINIRole 1 MG TABLET PO SCH ×2 (08:29→20:38)
[2019-05-02] MEDS: MEMANTINE 10 MG TABLET PO SCH ×2 (08:30→20:39)
[2019-05-02] MEDS: MISOPROSTOL 100 MCG TABLET PO SCH (08:30)
[2019-05-02] MEDS: INSULIN LISPRO 1 UNIT/0.01 ML UNIT SQ SCH ×4 (08:31→20:49)
[2019-05-02] MEDS: INSULIN GLARGINE, HUMAN 1 UNIT/0.01 ML SQ SCH ×2 (08:31→20:48)
[2019-05-02] MEDS: NEPAFENAC 0.3% OU SCH (08:31)
[2019-05-02] MEDS: MUPIROCIN OINT 2% 22GM NARES SCH ×4 (08:32→20:55)
[2019-05-02] MEDS: clonazePAM 0.5 MG TABLET PO SCH (08:32)
[2019-05-02] MEDS: LOTEPREDNOL ETABONATE 0.5% OU SCH ×3 (08:32→17:01)
[2019-05-02] MEDS: CARVEDILOL 3.125 MG TABLET PO SCH ×2 (08:32→17:48)
[2019-05-02] MEDS: DOCUSATE SODIUM 100 MG CAPSULE PO SCH ×2 (08:33→20:49)
[2019-05-02] MEDS: POLYVINYL ALCOHOL OPHTH DROPS 15ML BOTTLE OU SCH (08:40)
--- NOTE | 2019-05-02 09:14 | Nephrology Progress Note ---
Subjective Patient information: Note initiated : 05/02/19 at 9:12 am Service Date, if different from initiated Date: [] Patient: Eliezer Mahmood 68 y/o M admitted on 04/27/19 for Elevated creatnine. Chief Complaint: [] Feel a lot better and wants to go back to SNF Objective - Vital Signs Vital signs: Vital Signs Temp Pulse Resp BP Pulse Ox 05/02/19 07:01 80 96 05/02/19 07:00 80 135/84 95 05/02/19 06:01 80 118/78 94 05/02/19 06:00 80 95 05/02/19 05:02 80 96 05/02/19 05:01 80 16 140/82 95 05/02/19 04:00 98.6 F 80 18 130/76 94 05/02/19 03:01 12 118/63 05/02/19 02:01 12 122/74 05/02/19 01:07 14 108/76 05/02/19 00:01 98.4 F 80 16 131/65 93 05/01/19 23:01 98.9 F 80 16 120/68 93 05/01/19 22:06 80 108/71 94 05/01/19 22:02 80 74/65 91 05/01/19 22:00 79 92 05/01/19 21:01 98.7 F 141/86 05/01/19 20:01 141/92 05/01/19 20:00 98.7 F 18 141/92 96 05/01/19 19:01 136/91 05/01/19 18:01 132/72 05/01/19 17:00 121/82 05/01/19 16:47 108/77 05/01/19 16:32 79 97 05/01/19 16:31 79 140/90 98 05/01/19 16:16 80 141/84 93 05/01/19 16:01 97.8 F 80 133/89 93 05/01/19 15:16 80 136/85 100 05/01/19 15:01 80 140/90 97 05/01/19 15:00 80 95 05/01/19 14:50 80 135/86 97 05/01/19 14:46 80 137/85 98 05/01/19 14:42 80 135/86 97 05/01/19 14:31 80 133/78 90 05/01/19 14:30 80 133/78 05/01/19 14:16 81 129/82 84 L 05/01/19 14:15 80 129/82 05/01/19 14:01 81 128/81 87 L 05/01/19 14:00 80 128/81 96 05/01/19 13:59 80 133/82 94 05/01/19 13:46 80 141/108 97 05/01/19 13:45 80 133/82 05/01/19 13:31 126/78 05/01/19 13:30 80 126/78 05/01/19 13:15 80 108/69 05/01/19 13:01 98/65 05/01/19 13:00 80 98/65 05/01/19 12:46 80 103/66 88 L 05/01/19 12:45 80 103/66 05/01/19 12:31 111/66 05/01/19 12:30 80 111/66 05/01/19 12:16 109/65 05/01/19 12:15 80 109/65 05/01/19 12:01 114/75 05/01/19 12:00 80 114/75 05/01/19 11:46 102/63 05/01/19 11:45 80 102/63 05/01/19 11:31 103/58 05/01/19 11:30 80 103/58 05/01/19 11:16 99/69 05/01/19 11:15 97.2 F 80 99/69 05/01/19 11:11 113/53 05/01/19 11:01 83/52 05/01/19 10:46 88/50 05/01/19 10:36 77/45 05/01/19 10:01 91/49 05/01/19 09:31 80 97/50 93 Intake and Output 05/01/19 05/02/19 05/02/19 21:59 05:59 13:59 Intake Total 190 530 50 Output Total 2650 250 Balance -2460 530 -200 Intake: IV 50 50 50 Zosyn 2.25 gm In Dextrose 5% in 50 50 50 Water 50 ml @ 100 mls/hr IV Q8H [facility] Rx#:[id number] Oral 140 480 Output: Urine Catheter Amount 650 Void Amount 250 Hemodialysis UF 2000 Other: Urine Appearance Hematuria Urine Color Red Brown Weight 219 lb 6.4 oz Intake & Output: Intake & Output 05/01/19 05/02/19 05/02/19 21:59 05:59 13:59 Intake Total 190 530 50 Output Total 2650 250 Balance -2460 530 -200 Weight 219 lb 6.4 oz Intake: IV 50 50 50 Zosyn 2.25 gm In Dextrose 5% in 50 50 50 Water 50 ml @ 100 mls/hr IV Q8H [facility] Rx#:[id number] Oral 140 480 Output: Urine Catheter Amount 650 Void Amount 250 Hemodialysis UF 1999 Other: Urine Appearance Hematuria Urine Color Red Brown - General Appearance General appearance: well-developed, well-nourished EENT: ATNC Neck: no JVD Respiratory: no kyphosis Cardiology: no murmurs Gastrointestinal: normoactive bowel sounds Neurologic: no focal deficit - Lab 05/02/19 03:37 05/02/19 03:37 Most recent lab results Calcium 8.5 mg/dl (8.6-10.4) L 05/02/19 03:37 Phosphorus 3.6 mg/dL (2.7-4.5) 05/02/19 03:37 Magnesium 1.7 mg/dL (1.6-2.5) 05/02/19 03:37 Assessment and Plan (1) BRIELLE (acute kidney injury) Status: Acute Comment: Secondary to probable ATN. CT negative. Not much improvement in renal function. He was uremic. Started on dialysis with a temporary dialysis catheter on 04/30/2019. Patient wants to go home. I would like to see what the renal function would do tomorrow. Will try to get a tunnel cath placed before he leaves.
--- NOTE | 2019-05-02 13:46 | Internal Med Progress Note ---
Medical - PN: Subj Patient information: Note initiated : 05/02/19 at 1:42 pm Service Date, if different from initiated Date: [] Patient: Eliezer Mahmood 68 y/o M admitted on 04/27/19 for Elevated creatnine. Chief Complaint: [] Interval history: Mr. Mahmood is a 68 year old M Who was [facility] for abnormal labs. His creatinine was found to be 7.9 with a BUN of 83. He is asymptomatic. Has no nausea or vomiting, no lethargy or or altered mental status of any kind. States he is urinating okay and denies any hematuria. Denies flank pain or abdominal pain. No chest pain shortness of breath. Denies new medications except for some drops for his eyes. He takes Lasix twice daily but says that has not changed recently. Denies edema his legs, states sometimes he gets swelling in his ankles but not very often. Did have a rash beginning of the month which was there for a month or so but that has resolved. In the ED he had a work-up including CT abdomen pelvis which showed no acute pathology, it was without contrast. Is acidotic with bicarb of 13. Vital signs are stable. Actiq acidosis. Urine with trace blood and hyaline casts. Urine eosinophils unremarkable Case was discussed with Dr. Capellan. Who will follow and patient started on bicarb drip. Old records report in July 2018 he was found unresponsive with a creatinine of 8 and a BUN of 90. He was flown to [place] at that time from [facility] as they did not have any ICU beds available or ability to do emergent dialysis. Patient does not recall how long he was up there and he does not believe he was on hemodialysis or is ever been. His kidneys seem to improve and it appears his baseline creatinine is around 2-2-1/2 as of the past couple months prior to that seem to be close to 2 usually. 04/28 Slept well. No complaints. Urinating. Hematuria and Rojas bag today, traumatic Rojas while patient getting into bed. Not much improvement in creatinine today. Bicarb drip running slowly. 04/29 Sleeping fine and no overnight events. Hematuria. Feeling relatively fine, no change 04/30 Seems to feel little better today. Still has a hematuria but not as dark. No new complaints. Creatinine slowly trending down. White blood cells up afebrile. Addendum 11:30 PM received nurse call for patient systolics dropping to 70s with significant change in mental status/poorly responsive state. Patient in septic shock. Emergently started vasopressors to keep map at goal. Patient is on HD. Avoid excessive fluid challenge. Continue broad antibiotic coverage. 05/01-patient systolics improved to 140s. Titrating vasopressors down. Continue antibiotic coverage. White count downTo 18.5 from 23,000. INR down from 171.7 status post vitamin K/FFP. Improved metabolic post hemodialysis. Mental s tatus improved and now more alert and responding to verbal commands. Intermittently confused. No telemetry events 05/02-patient doing better. White count downtrending to 13.5. Femoral dialysis catheter discontinued. Will possibly discharge in 24 hours to SNF with schedule outpatient HD catheter placement being coordinated by nephrology. On antibiotic coverage for sepsis and UTI. Coumadin held in anticipation of HD catheter placement. INR 1.3. Multidrug-resistant E. coli on culture currently on Zosyn. - Constitutional Vitals: Vital Signs Temp Pulse Resp BP Pulse Ox 97.1 F 81 18 134/81 97 05/02/19 12:00 05/02/19 09:01 05/02/19 12:00 05/02/19 12:00 05/02/19 12:00 Period Temp Pulse Resp BP Sys/Arciniega Pulse Ox Last 24 Hr 97.1 F-98.9 F 79-81 12-18 74-141/63-108 84-100 Intake and Output 05/01/19 05/02/19 05/02/19 21:59 05:59 13:59 Intake Total 190 530 50 Output Total 2650 650 Balance -2460 530 -600 Weight 219 lb 6.4 oz Intake & Output: Intake & Output 05/01/19 05/02/19 05/02/19 21:59 05:59 13:59 Intake Total 190 530 50 Output Total 2650 650 Balance -2460 530 -600 Weight 219 lb 6.4 oz Intake: IV 50 50 50 Zosyn 2.25 gm In Dextrose 5% in 50 50 50 Water 50 ml @ 100 mls/hr IV Q8H [facility] Rx#:[id number] Oral 140 480 Output: Urine Catheter Amount 650 Void Amount 350 Stool 300 Hemodialysis UF 1999 Other: Urine Appearance Hematuria Urine Color Red Brown General appearance: no acute distress Exam: Alert oriented Nonlabored breathing No telemetry events No anxiety No lymphedema Medical - PN: Obj Da - Labs CBC & Chem 7: 05/02/19 03:37 05/02/19 03:37 Labs: Abnormal Lab Results 05/02/19 05/02/19 05/02/19 03:37 03:37 03:37 WBC 13.5 H RBC 2.80 L Hgb 9.1 L Hct 27.3 L RDW 15.0 H Gran % Lymph % (Auto) 11.9 L Nelson % (Auto) 12.5 H Gran # 9.7 H Nelson # (Auto) 1.7 H Seg Neutrophils % Lymphocytes % ESR PT 16.1 H INR 1.3 H Carbon Dioxide Anion Gap BUN 30 H Creatinine 4.0 H Glucose Calcium 8.5 L Phosphorus C-Reactive Protein NT-Pro-B Natriuret Pep Albumin 2.6 L Globulin Albumin/Globulin Ratio 0.7 L 05/01/19 05/01/19 05/01/19 03:55 03:55 03:55 WBC RBC Hgb Hct RDW Gran % Lymph % (Auto) Nelson % (Auto) Gran # Nelson # (Auto) Seg Neutrophils % Lymphocytes % ESR PT 19.6 H INR 1.7 H Carbon Dioxide 21 L Anion Gap 17.0 H BUN 44 H Creatinine 4.8 H Glucose 137 H Calcium 8.5 L Phosphorus 5.1 H C-Reactive Protein 19.7 H NT-Pro-B Natriuret Pep Albumin 2.6 L Globulin Albumin/Globulin Ratio 0.7 L 05/01/19 04/30/19 04/30/19 03:55 18:01 04:25 WBC 18.5 H RBC 2.90 L Hgb 9.4 L Hct 28.3 L RDW 15.0 H Gran % 83.1 H Lymph % (Auto) 8.0 L Nelson % (Auto) Gran # 15.3 H Nelson # (Auto) 1.5 H Seg Neutrophils % Lymphocytes % ESR 93 H PT 22.6 H INR 2.0 H Carbon Dioxide Anion Gap BUN Creatinine Glucose Calcium Phosphorus C-Reactive Protein NT-Pro-B Natriuret Pep 12057.0 H Albumin Globulin Albumin/Globulin Ratio 04/30/19 04/30/19 04/30/19 04:25 04:25 04:25 WBC 23.0 H RBC 3.26 L Hgb 10.5 L Hct 31.6 L RDW 15.1 H Gran % Lymph % (Auto) Nelson % (Auto) Gran # Nelson # (Auto) Seg Neutrophils % 84 H Lymphocytes % 9 L ESR PT 36.3 H INR 3.7 H Carbon Dioxide 18 L Anion Gap 19.0 H BUN 79 H Creatinine 7.0 H* Glucose Calcium Phosphorus 6.4 H* C-Reactive Protein NT-Pro-B Natriuret Pep Albumin 2.6 L Globulin 3.9 H Albumin/Globulin Ratio 0.7 L Meds: Medications Acetaminophen (Tylenol) 650 mg PO Q4-6HP PRN PRN Reason: PAIN/FEVER > 101 Last Admin: 05/01/19 08:35 Dose: 650 mg Documented by: Albuterol/Ipratropium (Duoneb) 3 ml NEB Q6HRT PRN PRN Reason: Bronchospasm Allopurinol (Zyloprim) 50 mg PO DAILY [facility] Last Admin: 05/02/19 08:21 Dose: 50 mg Documented by: Artificial Tears (Artificial Tears Ophth Drops) 1 gtt OU DAILY [facility] Last Admin: 05/02/19 08:40 Dose: 1 gtt Documented by: Atorvastatin Calcium (Lipitor) 5 mg PO [facility] Last Admin: 05/01/19 20:37 Dose: 5 mg Documented by: Bisacodyl (Dulcolax) 10 mg AL DAILYP PRN PRN Reason: Constipation Carvedilol (Coreg) 3.125 mg PO BIDCC [facility] Last Admin: 05/02/19 08:32 Dose: 3.125 mg Documented by: Clonazepam (Klonopin) 0.25 mg PO DAILY [facility] Last Admin: 05/02/19 08:32 Dose: 0.25 mg Documented by: Dextrose (Dextrose 50%) 0 ml IV UD PRN PRN Reason: Hypoglycemia Diagnostic Test (Pha) (Accu-Chek) 1 each FS ACHS [facility] Last Admin: 05/02/19 11:58 Dose: 1 each Documented by: Docusate Sodium (Colace) 100 mg PO BID [facility] Last Admin: 05/02/19 08:33 Dose: Not Given Documented by: Famotidine (Pepcid) 20 mg IV HS [facility] Last Admin: 05/01/19 20:42 Dose: 20 mg Documented by: Gabapentin (Neurontin) 100 mg PO [facility] Last Admin: 05/01/19 20:41 Dose: 100 mg Documented by: Glucose (Insta-Glucose) 15 gm PO PRN PRN PRN Reason: Hypoglycemia Hydroxyzine HCl (Atarax) 0 mg PO HSP PRN PRN Reason: Insomnia Piperacillin Sod/Tazobactam (Sod 2.25 gm/ Dextrose) 50 mls @ 100 mls/hr IV Q8H [facility]; Protocol Last Infusion: 05/02/19 06:30 Dose: Infused Documented by: Vasopressin 20 unit/ Dextrose 100 mls @ 12 mls/hr IV Q8HP PRN; Protocol PRN Reason: Hypotension Insulin Glargine (Lantus) 2 unit SQ BID [facility] Last Admin: 05/02/19 08:31 Dose: 2 units Documented by: Insulin Human Lispro (Humalog) 0 unit SQ ACHS [facility]; Protocol Last Admin: 05/02/19 11:58 Dose: Not Given Documented by: Labetalol HCl (Trandate) 0 mg IV Q2HP PRN PRN Reason: Hypertension Melatonin (Melatonin 3mg Tablet) 9 mg PO [facility] Last Admin: 05/01/19 20:40 Dose: 9 mg Documented by: Memantine (Namenda) 10 mg PO BID [facility] Last Admin: 05/02/19 08:30 Dose: 10 mg Documented by: Misoprostol (Cytotec) 100 mcg PO DAILY [facility] Last Admin: 05/02/19 08:30 Dose: 100 mcg Documented by: Mupirocin (Bactroban Oint 2%) 1 dose NARES BID [facility] Last Admin: 05/02/19 08:32 Dose: 1 dose Documented by: Ondansetron HCl (Zofran) 4 mg IV Q4-6HP PRN PRN Reason: Nausea And Vomiting Loteprednol Etabonate [Lotemax] 0.5% Ophthalmic Suspension 1 dose OU QID [facility] Last Admin: 05/02/19 12:55 Dose: 1 dose Documented by: Nepafenac [Ilevro] 0 .3% Ophthalmic Suspension 1 dose OU DAILY [facility] Last Admin: 05/02/19 08:31 Dose: 1 dose Documented by: Promethazine HCl (Phenergan) 12.5 mg IV Q4-6HP PRN PRN Reason: Nausea And Vomiting Ropinirole HCl (Requip) 1 mg PO BID [facility] Last Admin: 05/02/19 08:29 Dose: 1 mg Documented by: Sertraline HCl (Zoloft) 150 mg PO [facility] Last Admin: 05/01/19 20:39 Dose: 150 mg Documented by: Sodium Chloride (Saline Flush) 10 ml IV Q8 [facility] Last Admin: 05/02/19 12:55 Dose: 10 ml Documented by: Trazodone HCl (Desyrel) 50 mg PO [facility] Last Admin: 05/01/19 20:39 Dose: 50 mg Documented by: Warfarin Sodium (Coumadin Per Pharmacy) 1 order PO UD [facility] Medical - PN: A/P - Time Spent With Patient Total time spent is greater than 50% in coordination of care (as documented) at patient's floor/unit and/or counseling patient: 25 - 35 minutes (1) Shock circulatory Status: Acute Assessment and plan: * Septic shock secondary to E. coli UTI-off pressors. Clinically improved. Status post hemodialysis. Stable hemodynamics. Continue Zosyn ESBL E. coli UTI. White count down from 20,000-13.5. * Acute on chronic kidney disease. On hemodialysis management nephrology. Femoral HD catheter discontinued. Nephrology coordinating outpatient HD catheter placement at [facility] on Tuesday. Anticipate discharge in 24 hours if labs stable to SNF. * Atrial fibrillation rate controlled, paced rhythm. Coreg on hold * Anticoagulation reversal status post vitamin K/2 units FFP secondary to bleeding at femoral dialysis catheter site. INR 1.3. Anticoagulation held in anticipation for HD catheter placement on Tuesday * Dilated cardiomyopathy 20% EF with AICD/pacemaker * DM type II-continue basal prandial insulin * History of CVA-restart anticoagulation * Chronic anemia-managed by nephrology * History of depression * History of gout on allopurinol * Neuropathy on gabapentin * Alzheimer's dementia * History of GERD * Full code Plan * Continue broad antibiotic coverage * Anticipate discharge to SNF in 24 hours * Nephrology coordinating outpatient HD catheter placement at [facility] on Tuesday * Hold anticoagulation until HD catheter placement * Continue prior medical condition management on home meds Critical care time spent on treatment of septic shock including management of vasopressors over 35 minutes Current Visit: Yes Medical - PN: Qual - VTE Deep Vein Thrombosis/Pulmonary Embolism Present on Admission: No
[2019-05-02] MEDS ORDERED: WARFARIN 5 MG TABLET PO ONE (14:00)
[2019-05-02] MEDS ORDERED: PROMETHAZINE 25 MG/ML VIAL IV PRN (19:02)
[2019-05-02] MEDS ORDERED: hydrOXYzine 25 MG TABLET PO PRN (19:02)
[2019-05-02] MEDS ORDERED: DEXTROSE 31 GM ORAL.SUSP PO PRN (19:02)
[2019-05-02] MEDS ORDERED: BISACODYL 10 MG SUPP.RECT PR PRN (19:02)
[2019-05-02] MEDS ORDERED: LABETALOL 5 MG/ML ML IV PRN (19:02)
[2019-05-02] MEDS ORDERED: ONDANSETRON 4 MG/2 ML VIAL IV PRN (19:02)
[2019-05-02] MEDS ORDERED: IPRATROPIUM/ALBUTEROL 3 ML AMPUL.NEB NEB PRN (19:02)
[2019-05-02] MEDS ORDERED: ACETAMINOPHEN 325 MG TABLET PO PRN (19:02)
[2019-05-02] MEDS ORDERED: DEXTROSE 50% 50 ML VIAL IV PRN (19:02)
[2019-05-02] MEDS ORDERED: WARFARIN 5 MG TABLET PO SCH (20:00)
[2019-05-02] MEDS: LOTEMAX 0.5% OU SCH (20:48)
[2019-05-02] MEDS ORDERED: ATORVASTATIN 20 MG TABLET PO SCH (21:00)
[2019-05-02] MEDS ORDERED: FAMOTIDINE/PF 20 MG/2 ML VIAL IV SCH (21:00)
[2019-05-02] MEDS ORDERED: traZODone HCL 50 MG TABLET PO SCH (21:00)
[2019-05-02] MEDS ORDERED: SERTRALINE 100 MG TABLET PO SCH (21:00)
[2019-05-02] MEDS ORDERED: MELATONIN 3 MG TABLET PO SCH (21:00)
[2019-05-02] MEDS ORDERED: GABAPENTIN 100 MG CAPSULE PO SCH (21:00)
[2019-05-03] MEDS: PIPERACILLIN SODIUM/TAZOBACTAM 2.25 GM in DEXTROSE 5% IN WATER 50 ML IV SCH (04:22)
[2019-05-03] MEDS: 0.9 % SODIUM CHLORIDE 10 ML SYRINGE IV SCH (04:47)
[2019-05-03 05:41] LABS: INR 1.4 (0.9-1.1); Prothrombin Time 17.4 sec (11.9-14.5)
[2019-05-03] MEDS: INSULIN LISPRO 1 UNIT/0.01 ML UNIT SQ SCH ×2 (07:54→10:51)
[2019-05-03] MEDS ORDERED: CARVEDILOL 3.125 MG TABLET PO SCH (08:00)
--- NOTE | 2019-05-03 08:55 | Nephrology Progress Note ---
Subjective Patient information: Note initiated : 05/03/19 at 8:53 am Service Date, if different from initiated Date: [] Patient: Eliezer Mahmood 68 y/o M admitted on 04/27/19 for Elevated creatnine. Chief Complaint: Complaints of left flank pain. Breathing is good. No other complaints. Objective - Vital Signs Vital signs: Vital Signs Temp Pulse Pulse Resp BP BP Pulse Ox 05/03/19 06:53 98.2 F 80 18 103/65 95 05/03/19 04:00 98.1 F 80 18 127/75 94 05/03/19 00:00 98 F 81 18 107/64 94 05/02/19 20:00 97.7 F 80 18 115/61 98 05/02/19 19:37 80 18 98 05/02/19 19:27 97.7 F 18 120/61 98 05/02/19 15:58 97.0 F 18 134/86 98 05/02/19 12:22 80 134/81 95 05/02/19 12:00 97.1 F 18 134/81 97 05/02/19 09:01 81 98 05/02/19 09:00 80 134/90 97 Intake and Output 05/02/19 05/03/19 05/03/19 21:59 05:59 13:59 Intake Total 220 500 Output Total 250 500 Balance -30 0 Intake: IV 100 50 Zosyn 2.25 gm In Dextrose 5% in 100 50 Water 50 ml @ 100 mls/hr IV Q8H [facility] Rx#:[id number] Oral 120 450 Output: Void Amount 250 500 Other: Urine Odor Normal Weight 220 lb 12.8 oz Intake & Output: Intake & Output 05/02/19 05/03/19 05/03/19 21:59 05:59 13:59 Intake Total 220 500 Output Total 250 500 Balance -30 0 Weight 220 lb 12.8 oz Intake: IV 100 50 Zosyn 2.25 gm In Dextrose 5% in 100 50 Water 50 ml @ 100 mls/hr IV Q8H [facility] Rx#:[id number] Oral 120 450 Output: Void Amount 250 500 Other: Urine Odor Normal - General Appearance General appearance: well-developed EENT: ATNC Neck: no JVD Cardiology: no murmurs Gastrointestinal: normoactive bowel sounds Neurologic: no focal deficit Musculoskeletal: no deformities - Lab 05/02/19 03:37 05/02/19 03:37 Most recent lab results Calcium 8.5 mg/dl (8.6-10.4) L 05/02/19 03:37 Phosphorus 3.6 mg/dL (2.7-4.5) 05/02/19 03:37 Magnesium 1.7 mg/dL (1.6-2.5) 05/02/19 03:37 Assessment and Plan (1) BRIELLE (acute kidney injury) Status: Acute Comment: Secondary to ATN. CT negative. He was uremic, so started on dialysis with a temporary dialysis catheter on 04/30/2019. Will check labs today. If cr is better, no more need for dialysis. If cr is worse, will get a tunnel cath tomorrow as outpatient and dialyse as out patient.
[2019-05-03] MEDS ORDERED: clonazePAM 0.5 MG TABLET PO SCH (09:00)
[2019-05-03] MEDS ORDERED: ALLOPURINOL 100 MG TABLET PO SCH (09:00)
[2019-05-03] MEDS ORDERED: MISOPROSTOL 100 MCG TABLET PO SCH (09:00)
[2019-05-03] MEDS ORDERED: POLYVINYL ALCOHOL OPHTH DROPS 15ML BOTTLE OU SCH (09:00)
[2019-05-03 10:02] LABS: Basophils # (Auto) 0 K/mcL (0.0-0.3); Basophils % (Auto) 0.1 % (0.0-2.0); Eosinophils # (Auto) 0.5 K/mcL (0.0-0.7); Eosinophils % (Auto) 4.1 % (0.0-7.0); Granulocytes % (Auto) 73.1 % (38.0-78.0); Hematocrit 28.4 % (41.0-55.0); Hemoglobin 9.4 g/dL (13.5-16.5); Lymphocytes # (Auto) 1.3 K/mcL (1.5-4.8); Mean Cell Volume 96.5 fL (80.0-100.0); Mean Corpuscular HGB Conc 33.3 g/dL (31.0-36.0); Mean Platelet Volume 7.4 fL (7.4-10.4); Monocytes # (Auto) 1.6 K/mcL (0.1-0.9); Monocytes % (Auto) 12.7 % (1.0-12.0); Platelet Count 275 K/mcL (140-440); RBC 2.94 M/mcL (4.50-5.90); Red Cell Distribution Width 14.8 % (11.5-14.5); WBC 12.7 K/mcL (4.5-11.0)
[2019-05-03] MEDS: rOPINIRole 1 MG TABLET PO SCH (10:03)
[2019-05-03] MEDS: MEMANTINE 10 MG TABLET PO SCH (10:03)
[2019-05-03] MEDS: DOCUSATE SODIUM 100 MG CAPSULE PO SCH (10:04)
[2019-05-03] MEDS: MUPIROCIN OINT 2% 22GM NARES SCH (10:17)
[2019-05-03 10:21] LABS: ALT/SGPT 15 U/l (0-40); AST/SGOT 26 U/l (0-37); Albumin 2.7 gm/dL (3.2-5.2); Albumin/Globulin Ratio 0.7 (1.0-2.3); Alkaline Phosphatase 98 U/L (39-117); Bilirubin,Direct < 0.2 mg/dL (0.0-0.3); Bilirubin,Total 0.3 mg/dL (0.0-1.0); Blood Urea Nitrogen 33 mg/dl (8-23); Calcium 8.8 mg/dl (8.6-10.4); Carbon Dioxide 25 mmol/L (22-30); Chloride 101 mmol/L (96-108); Globulin 3.9 gm/dL (2.2-3.7); Glomerular Filtration Rate 12; Glucose 106 mg/dL (70-105); Lactate Dehydrogenase 181 U/L (94-250); Phosphorous 4.3 mg/dL (2.7-4.5); Triglycerides 125 mg/dl (<150); Uric Acid 4.5 mg/dL (2.5-8.0)
[2019-05-03] MEDS: NEPAFENAC 0.3% OU SCH (10:44)
[2019-05-03] MEDS: LOTEPREDNOL ETABONATE 0.5% OU SCH ×2 (10:45)
[2019-05-03] MEDS: LOTEMAX 0.5% OU SCH (10:47)
[2019-05-03] MEDS: INSULIN GLARGINE, HUMAN 1 UNIT/0.01 ML SQ SCH (10:48)
--- NOTE | 2019-05-03 11:47 | Discharge Summary ---
Medical - DS: Prov Patient information: Note initiated : 05/03/19 at 11:44 am Service Date, if different from initiated Date: [] Patient: Eliezer Mahmood 68 y/o M admitted on 04/27/19 for Elevated creatnine. Chief Complaint: [] Date of admission: 04/27/19 22:25 Discharge date: 05/03/19 Primary care physician: RAFI Corrigan Consults: 04/27/19 Consult to Physician [CONS] Stat Comment: Consulting Provider: Benito Bales Reason For Exam: Physician to Consult 04/27/19 22:39 Consult to Physician [CONS] Urgent Comment: Consulting Provider: Aditya Capellan Reason For Exam: Physician to Consult Medical - DS: Meds - Discharge Medications Prescriptions: Ertapenem [Invanz] 1 gm IV Q24H #4 vial Active and Home Medications: Home Medications Carvedilol [Coreg] 12.5 mg PO BID 11/17/15 [History Confirmed 04/27/19 Last Taken 04/27/19 07:44] cholecalciferol (vitamin D3) 2,000 unit capsule 1,000 unit PO QDAY 02/25/16 [History Confirmed 04/27/19 Last Taken 04/27/19 07:44] cyanocobalamin (vit B-12) 1,000 mcg tablet 500 mcg PO QDAY 02/25/16 [History Confirmed 04/27/19 Last Taken 04/27/19 07:44] cyclosporine 0.05 % eye drops in a dropperette 2 drp OPHTHALMIC DAILY 02/25/16 [History Confirmed 04/28/19 Last Taken 04/18/19 18:40] oxygen 5 units INHALATION QHS 02/25/16 [History Confirmed 10/14/18 Last Taken 04/29/16] ropinirole 0.25 mg tablet 1 mg PO BID tab 02/25/16 [History Confirmed 04/27/19 Last Taken 04/26/19 20:54] pen needle, diabetic See Dose Instructions .ROUTE .MEDSUPPLY MDD 45 units 02/26/16 [History Confirmed 10/14/18 Last Taken 04/30/16] insulin aspart (U-100) 100 unit/mL (3 mL) subcutaneous pen 10 unit SUB-Q ONCE #15 ml 07/08/16 [Rx Confirmed 04/28/19 Last Taken 11/21/18] Allopurinol [Zyloprim] 200 mg PO QAM 10/09/18 [History Confirmed 04/27/19 Last Taken 04/27/19 07:44] Atorvastatin [Lipitor] 5 mg PO QPM 10/09/18 [History Confirmed 04/27/19 Last Taken 04/26/19 08:54] Bisacodyl [Dulcolax] 10 mg [place] DAILYP PRN 10/09/18 [History Confirmed 04/27/19 Last Taken 11/21/18] Docusate Sodium [Colace] 100 mg PO BID 10/09/18 [History Confirmed 04/27/19 Last Taken 04/27/19 07:44] Gabapentin [Neurontin] 600 mg PO TID 10/09/18 [History Confirmed 04/27/19 Last Taken 04/27/19 12:05] Magnesium Hydroxide [Milk of Magnesia] 30 ml PO DAILYP PRN 10/09/18 [History Confirmed 04/27/19 Last Taken 11/21/18] Memantine [Namenda] 10 mg PO BID 10/09/18 [History Confirmed 04/27/19 Last Taken 04/27/19 07:44] Na Phos,M-B/Na Phos,Di-Ba [Fleets Adult] 1 dose VA DAILYP PRN 10/09/18 [History Confirmed 05/02/19 Last Taken 11/21/18] Ferrous Sulfate/Vit C/FA [Folitab 500 Caplet] 1 each PO DAILY 10/14/18 [History Confirmed 04/27/19 Last Taken 04/27/19 07:44] Pantoprazole Sodium [Protonix] 20 mg PO DAILY 10/14/18 [History Confirmed 04/28/19 Last Taken 11/21/18] insulin detemir (U- 100) 100 unit/mL subcutaneous solution 2 unit SUB-Q BID ml 12/19/18 [History Confirmed 04/27/19 Last Taken 04/27/19 08:02] lansoprazole 30 mg delayed release,disintegrating tablet 30 mg PO BID tab 12/19/18 [History Confirmed 04/27/19 Last Taken 04/27/19 07:43] misoprostol 100 mcg tablet 100 mcg PO QAM tab 12/19/18 [History Confirmed 04/27/19 Last Taken 04/27/19 07:44] multivitamin tablet 1 tab PO QAM 12/19/18 [History Confirmed 04/27/19 Last Taken 04/27/19 07:44] sertraline 100 mg tablet 150 mg PO QHS tab 12/19/18 [History Confirmed 04/27/19 Last Taken 04/26/19 20:54] Fexofenadine 60 mg PO QAM 04/27/19 [History Confirmed 04/27/19 Last Taken 04/27/19 07:44] Loteprednol Etabonate [Lotemax] 1 drp OU QID 04/27/19 [History Confirmed Last Taken 04/27/19 12:05] Melatonin 10 mg PO QHS 04/27/19 [History Confirmed 04/28/19 Last Taken 04/26/19 23:40] Nepafenac [Ilevro] 1 drp OU QAM 04/27/19 [History Confirmed 04/27/19 Last Taken 04/27/19 07:44] Warfarin [Coumadin] 2.5 mg PO DAILY 04/27/19 [History Confirmed 04/27/19 Last Taken 04/26/19 17:28] clonazePAM [KlonoPIN] 0.25 mg PO QAM 04/27/19 [History Confirmed 04/27/19 Last Taken 04/27/19 07:44] hydrOXYzine [Atarax] 25 mg PO QHS 04/27/19 [History Confirmed 04/27/19 Last Taken 04/26/19 20:54] traZODone HCL [Trazodone HCl] 50 mg PO QPM 04/27/19 [History Confirmed 04/27/19 Last Taken 04/26/19 23:40] Fexofenadine [Ophelia] 60 mg PO DAILY 04/28/19 [History Confirmed 04/28/19 Last Taken 04/27/19 08:00] Furosemide [Lasix] 40 mg PO BID 04/28/19 [History Confirmed 04/28/19 Last Taken 04/27/19 15:15] Glycerin/Propylene Glycol [Artificial Tears Drops] 30 ml OP DAILY 04/28/19 [History Confirmed 04/28/19 Last Taken Unknown] Ertapenem [Invanz] 1 gm IV Q24H #4 vial 05/02/19 [Rx Last Taken Unknown] Medical - DS: Hosp Hospital Course: Discharge diagnosis * Septic shock secondary to E. coli UTI-off pressors. Clinically improved. Status post hemodialysis. Stable hemodynamics. Continue Zosyn ESBL E. coli UTI. White count down from 20,000-12.7. Continue additional 4 days of iV ertapenem * Acute renal failure started on dialysis.. Ongoing management nephrology. Femoral HD catheter discontinued. Patient will undergo HD catheter placement at [facility] on Tuesday morning 7 AM. Discharging to [facility] today * Atrial fibrillation rate controlled, paced rhythm. Coreg on hold * Anticoagulation reversal status post vitamin K/2 units FFP secondary to bleeding at femoral dialysis catheter site. Anticoagulation on hold until HD catheter placement on Tuesday at [facility]. * Dilated cardiomyopathy 20% EF with AICD/pacemaker * DM type II-continue basal prandial insulin * History of CVA-restart anticoagulation * Chronic anemia-managed by nephrology * History of depression * History of gout on allopurinol * Neuropathy on gabapentin * Alzheimer's dementia * History of GERD Brief hospital course Mr. Mahmood is a 68 year old M Who [facility] for abnormal labs. His creatinine was found to be 7.9 with a BUN of 83. He is asymptomatic. Has no nausea or vomiting, no lethargy or or altered mental status of any kind. States he is urinating okay and denies any hematuria. Denies flank pain or abdominal pain. No chest pain shortness of breath. Denies new medications except for some drops for his eyes. He takes Lasix twice daily but says that has not changed recently. Denies edema his legs, states sometimes he gets swelling in his ankles but not very often. Did have a rash beginning of the month which was there for a month or so but that has resolved. In the ED he had a work-up including CT abdomen pelvis which showed no acute pathology, it was without contrast. Is acidotic with bicarb of 13. Vital signs are stable. Actiq acidosis. Urine with trace blood and hyaline casts. Urine eosinophils unremarkable Case was discussed with Dr. Capellan. Who will follow and patient started on bicarb drip. Old records report in July 2018 he was found unresponsive with a creatinine of 8 and a BUN of 90. He was flown to [place] at that time from [facility] as they did not have any ICU beds available or ability to do emergent dialysis. Patient does not recall how long he was up there and he does not believe he was on hemodialysis or is ever been. His kidneys seem to improve and it appears his baseline creatinine is around 2-2-1/2 as of the past couple months prior to that seem to be close to 2 usually. 04/28 Slept well. No complaints. Urinating. Hematuria and Rojas bag today, tra umatic Rojas while patient getting into bed. Not much improvement in creatinine today. Bicarb drip running slowly. 04/29 Sleeping fine and no overnight events. Hematuria. Feeling relatively fine, no change 04/30 Seems to feel little better today. Still has a hematuria but not as dark. No new complaints. Creatinine slowly trending down. White blood cells up afebrile. Addendum 11:30 PM received nurse call for patient systolics dropping to 70s with significant change in mental status/poorly responsive state. Patient in septic shock. Emergently started vasopressors to keep map at goal. Patient is on HD. Avoid excessive fluid challenge. Continue broad antibiotic coverage. 05/01-patient systolics improved to 140s. Titrating vasopressors down. Continue antibiotic coverage. White count downTo 18.5 from 23,000. INR down from 171.7 status post vitamin K/FFP. Improved metabolic post hemodialysis. Mental status improved and now more alert and responding to verbal commands. Intermittently confused. No telemetry events 05/02-patient doing better. White count downtrending to 13.5. Femoral dialysis catheter discontinued. Will possibly discharge in 24 hours to SNF with schedule outpatient HD catheter placement being coordinated by nephrology. On antibiotic coverage for sepsis and UTI. Coumadin held in anticipation of HD catheter placement. INR 1.3. Multidrug-resistant E. coli on culture currently on Zosyn. 05/03. Patient doing well. Creatinine up trending. Will require continued hemodialysis per nephrology. Nephrology scheduled outpatient HD catheter placement on Tuesday 7 AM at [facility]. Patient discharging to [facility] in stable state with advised to continue antibiotic for additional 4 days IV ertapenem for ESBL UTI. Will continue following up with nephrology on discharge Discharge diagnosis: . - Time Spent with Patient Total time spent providing and/or coordinating discharge services: Greater than 30 minutes Medical - DS: Exam - Constitutional Vitals: Vital Signs Temp Pulse Pulse Resp BP BP Pulse Ox 05/03/19 06:53 98.2 F 80 18 103/65 95 05/03/19 04:00 98.1 F 80 18 127/75 94 05/03/19 00:00 98 F 81 18 107/64 94 05/02/19 20:00 97.7 F 80 18 115/61 98 05/02/19 19:37 80 18 98 05/02/19 19:27 97.7 F 18 120/61 98 05/02/19 15:58 97.0 F 18 134/86 98 05/02/19 12:22 80 134/81 95 05/02/19 12:00 97.1 F 18 134/81 97 Intake and Output 05/02/19 05/03/19 05/03/19 21:59 05:59 13:59 Intake Total 220 500 Output Total 250 500 Balance -30 0 Intake: IV 100 50 Zosyn 2.25 gm In Dextrose 5% in 100 50 Water 50 ml @ 100 mls/hr IV Q8H [facility] Rx#:[id number] Oral 120 450 Output: Void Amount 250 500 Other: Urine Appearance Uretheral (Rojas) Clear Urine Color Uretheral (Rojas) Dark Yellow Urine Odor Normal Weight 220 lb 12.8 oz Medical - DS: Data Labs on day of discharge: Labs from last 24 hours 05/03/19 05/03/19 05/03/19 08:55 08:55 08:55 WBC 12.7 H RBC 2.94 L Hgb 9.4 L Hct 28.4 L MCV 96.5 MCH 32.2 MCHC 33.3 RDW 14.8 H Plt Count 275 MPV 7.4 Gran % 73.1 Lymph % (Auto) 10.0 L [place] % (Auto) 12.7 H Eos % (Auto) 4.1 Baso % (Auto) 0.1 Gran # 9.3 H Lymph # (Auto) 1.3 L [place] # (Auto) 1.6 H Eos # (Auto) 0.5 Baso # (Auto) 0 PT INR Sodium 139 Potassium 3.2 L Chloride 101 Carbon Dioxide 25 Anion Gap 13.0 BUN 33 H Creatinine 4.7 H GFR Calculation 12 Glucose 106 H Uric Acid 4.5 Calcium 8.8 Phosphorus 4.3 Magnesium 1.7 Total Bilirubin 0.3 Direct Bilirubin < 0.2 GGT 22 AST 26 ALT 15 Alkaline Phosphatase 98 Lactate Dehydrogenase 181 Total Protein 6.6 Albumin 2.7 L Globulin 3.9 H Albumin/Globulin Ratio 0.7 L Triglycerides 125 Hepatitis A IgM Ab Pending Hep Bs Antigen Pending Hep B Core IgM Ab Pending Hepatitis C Antibody Pending 05/03/19 04:19 WBC RBC Hgb Hct MCV MCH MCHC RDW Plt Count MPV Gran % Lymph % (Auto) [place] % (Auto) Eos % (Auto) Baso % (Auto) Gran # Lymph # (Auto) [place] # (Auto) Eos # (Auto) Baso # (Auto) PT 17.4 H INR 1.4 H Sodium Potassium Chloride Carbon Dioxide Anion Gap BUN Creatinine GFR Calculation Glucose Uric Acid Calcium Phosphorus Magnesium Total Bilirubin Direct Bilirubin GGT AST ALT Alkaline Phosphatase Lactate Dehydrogenase Total Protein Albumin Globulin Albumin/Globulin Ratio Triglycerides Hepatitis A IgM Ab Hep Bs Antigen Hep B Core IgM Ab Hepatitis C Antibody Preliminary micro results at discharge 04/30/19 07:52 Blood Culture - Preliminary Blood 04/30/19 07:58 Blood Culture - Preliminary Blood Medical - DS: A/P - Patient/Caregiver Discharge Instructions Activity: as per physical therapy Diet: Renal/Consistent Carbs Additional Instructions: Follow-up with nephrology for outpatient hemodialysis in 48 hours HD catheter placement at [facility] with Dr. Wills. Please register on TuesdayMay 04 at 0700 for your procedure at 0900. You will need to be NPO after midnight tonight for tomorrow's procedure. Hold Coumadin until dialysis catheter placement Continue IV ertapenem for additional 4 days Prescriptions: Ertapenem [Invanz] 1 gm IV Q24H #4 vial - Problem Maintenance (1) Shock circulatory Status: Acute - Follow up Plan Follow up with: Real Mann ARNP [Primary Care Provider] - Disposition: Xfer SNF Prognosis: Good Rehab Potential: Fair I certify that the patient requires SNF services: Yes Overall status at discharge: patient is progressing back to baseline Medical - DS: Qual - VTE Deep Vein Thrombosis/Pulmonary Embolism Present on Admission: No
[2019-05-03 12:25] LABS: Hepatitis B Surface Antigen NEGATIVE (NEGATIVE); Hepatitis C Virus Antibody NON REACTIVE (NEGATIVE)
== END 2019-05-03 13:40 | DRG 871 ==
LOC: ED 17:31 → ICU 22:25 → MEDSUR 05-02 18:05
PROVIDERS: ADMIT Internal Medicine; ATTEND Internal Medicine

== ENCOUNTER 2019-10-31 08:35 | Inpatient (IN) ==
[2019-10-31] MEDS ORDERED: 0.9 % SODIUM CHLORIDE 1,000 ML IV ONE (09:07)
--- NOTE | 2019-10-31 09:23 | Emergency Department Note ---
Weakness HPI - General Chief complaint: Weakness Stated complaint: Dizziness, weakness Time Seen by Provider: 10/31/19 09:06 Source: EMS Mode of arrival: EMS - History of Present Illness HPI Narrative: 69-year old patient presenting with a chief complaint of weakness/fatigue. Pat ient with onset that was abrupt. Time course is worsening. Patient was without exacerbating or ameliorating factors for these symptoms. Patient was assessed for associated symptoms such as dizziness which was positive, and other symptoms which were negative myalgia, unintentional weight loss, recent medication changes, symptoms of depression, exertional component to the symptoms, as well as sleep patterns. - Related Data Home Medications Medication Instructions Recorded Confirmed Carvedilol [Coreg] 12.5 mg PO BID 11/17/15 04/27/19 cholecalciferol (vitamin D3) 50 1,000 unit PO QDAY 02/25/16 04/27/19 mcg (2,000 unit) capsule cyanocobalamin (vitamin B-12) 500 mcg PO QDAY 02/25/16 04/27/19 1,000 mcg tablet cyclosporine 0.05 % eye drops in a 2 drp OPHTHALMIC DAILY 02/25/16 04/28/19 dropperette oxygen 5 units INHALATION QHS 02/25/16 10/14/18 ropinirole 0.25 mg tablet 1 mg PO BID tab 02/25/16 04/27/19 pen needle, diabetic See Dose Instructions .ROUTE 02/26/16 10/14/18 .MEDSUPPLY MDD 45 units Allopurinol [Zyloprim] 200 mg PO QAM 10/09/18 04/27/19 Atorvastatin [Lipitor] 5 mg PO QPM 10/09/18 04/27/19 Bisacodyl [Dulcolax] 10 mg NC DAILYP PRN 10/09/18 04/27/19 Docusate Sodium [Colace] 100 mg PO BID 10/09/18 04/27/19 Gabapentin [Neurontin] 600 mg PO TID 10/09/18 04/27/19 Magnesium Hydroxide [Milk of 30 ml PO DAILYP PRN 10/09/18 04/27/19 Magnesia] Memantine [Namenda] 10 mg PO BID 10/09/18 04/27/19 Na Phos,M-B/Na Phos,Di-Ba [Fleets 1 dose NC DAILYP PRN 10/09/18 05/02/19 Adult] Ferrous Sulfate/Vit C/Folic AC 1 each PO DAILY 10/14/18 04/27/19 [Folitab 500 Caplet] Pantoprazole Sodium [Protonix] 20 mg PO DAILY 10/14/18 04/28/19 insulin detemir U-100 100 unit/mL 2 unit SUB-Q BID ml 12/19/18 10/31/19 subcutaneous solution lansoprazole 30 mg delayed 30 mg PO BID tab 12/19/18 10/31/19 release,disintegrating tablet misoprostol 100 mcg tablet 100 mcg PO QAM tab 12/19/18 10/31/19 multivitamin 1 tab PO QAM 12/19/18 10/31/19 sertraline 100 mg tablet 150 mg PO QHS tab 12/19/18 10/31/19 Fexofenadine 60 mg PO QAM 04/27/19 04/27/19 Loteprednol Etabonate [Lotemax] 1 drp OU QID 04/27/19 10/31/19 Melatonin 10 mg PO QHS 04/27/19 10/31/19 Nepafenac [Ilevro] 1 drp OU QAM 04/27/19 10/31/19 Warfarin [Coumadin] 2.5 mg PO DAILY 04/27/19 10/31/19 clonazePAM [KlonoPIN] 0.25 mg PO QAM 04/27/19 10/31/19 hydrOXYzine [Atarax] 25 mg PO QHS 04/27/19 10/31/19 traZODone HCL [Trazodone HCl] 50 mg PO QPM 04/27/19 10/31/19 Fexofenadine [Ophelia] 60 mg PO DAILY 04/28/19 10/31/19 Furosemide [Lasix] 40 mg PO BID 04/28/19 10/31/19 Glycerin/Propylene Glycol 30 ml OP DAILY 04/28/19 04/28/19 [Artificial Tears Drops] Lisinopril [Zestril] 2.5 mg PO QAM 10/31/19 10/31/19 Previous Rx's Medication Instructions Recorded insulin aspart U-100 100 unit/mL 10 unit SUB-Q ONCE #15 ml 07/08/16 (3 mL) subcutaneous pen Ertapenem [Invanz] 1 gm IV Q24H #4 vial 05/02/19 predniSONE [Prednisone] 20 mg PO QAMCC #5 tab 06/03/19 Methocarbamol [Robaxin] 750 mg PO Q6-8HP PRN #30 tab 09/29/19 HYDROcodone/APAP 5/325MG [[place] 1 tab PO Q4HP PRN #20 tab 10/29/19 5-325Mg] Allergies Allergy/AdvReac Type Severity Reaction Status Date / Time morphine Allergy Mild Rash Verified 10/31/19 08:35 Tizanidine Allergy Unknown Confusion Verified 10/31/19 08:35 Review of Systems All systems ED: reviewed and negative except as stated. Past Medical History - Past Medical History [facility] Narrative: All Active Problems Eczema (Acute) Cerebral atrophy, mild (Acute) BRIELLE (acute kidney injury) (Acute) Shock circulatory (Acute) Acute gouty arthritis (Acute) Cervical strain, acute (Acute) DJD (degenerative joint disease), cervical (Acute) Fall (Acute) Left rib fracture (Acute) Anticoagulated on Coumadin (Chronic) Atrial fibrillation (Chronic) Dilated cardiomyopathy (Chronic) DMII (diabetes mellitus, type 2) (Chronic) Obstructive sleep apnea (Chronic) CHF (congestive heart failure), NYHA class II (Chronic) Cerebral artery occlusion with cerebral infarction (Chronic) Chronic kidney disease, stage III (moderate) (Chronic) CKD (chronic kidney disease) (Chronic) ICD (implantable cardioverter-defibrillator) in place (Chronic 10/14/10) Hypertension, essential (Chronic) Hyperlipidemia (Chronic) Obesity, morbid (Chronic) Alzheimer's dementia (Chronic) Gout (Chronic) Tachycardia (Chronic) Shortness of breath (Chronic) Neuropathy (Chronic) Hypotension (Chronic) Lower extremity edema (Chronic) Osteoarthritis (Chronic) Dizzy spells (Chronic) Depression (Chronic) Deafness (Chronic) DDD (degenerative disc disease), lumbar (Chronic) Cognitive impairment (Chronic) Anxiety (Chronic) Dyspnea on exertion (Chronic) Encounter for chronic pain management (Chronic) Osteoporosis (Chronic) Lumbar disc prolapse with compression radiculopathy (Chronic) Coronary atherosclerosis (Chronic) Peripheral vertigo (Chronic) Paresis of lower extremity (Chronic) Persistent insomnia (Chronic) Recurrent major depression (Chronic) Restless leg syndrome (Chronic) Recurrent vertigo (Chronic) Recurrent falls (Chronic) 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/12) Sinusitis, chronic (Chronic) Arthritis (Chronic) Acid reflux (Chronic) History of tobacco use (Chronic) Medical history: Reports: CHF, chronic anticoagulation, CVA, dementia, DM, renal disease Surgical history ED: Reports: non-contributory - Social History smoking status: Former smoker Alcohol use: Reports: Unknown Drug use: Reports: none, unknown Physical Exam General: Alert, interactive, appropriate Head: Atraumatic, normocephalic Eyes: Extraocular movements intact, PERRLA Neck: Trachea midline, full range of motion, no goiter Chest: Symmetrical chest wall rise, clear to auscultation bilateral without wheezes rales crackles or rubs Cardiovascular: Patient with excellent perfusion to the extremities, regular rate and rhythm without M/R/G Abdomen: Nontender nondistended normoactive bowel sounds no masses no hepatosplenomegaly no rebound no guarding Extremities: Full range of motion joints, warm well perfused, no lymphadenopathy is appreciated, no edema or evidence of congestive heart failure is appreciated Neuro: Alert, oriented x3, cranial nerves II through XII grossly intact, normal gait Psychiatric: Normal affect normal mood Course Vital Signs Temperature 100.5 F H 10/31/19 08:35 Pulse Rate 79 10/31/19 08:35 Respiratory Rate 18 10/31/19 08:35 Blood Pressure 107/70 10/31/19 08:35 Pulse Oximetry (%) 96 10/31/19 08:35 Temperature 100.5 F H 10/31/19 08:35 Pulse Rate 80 10/31/19 13:11 Respiratory Rate 20 10/31/19 12:45 Blood Pressure 96/58 10/31/19 13:11 Pulse Oximetry (%) 93 10/31/19 13:11 Weakness - MDM Narrative Medical decision making narrative: The differential diagnosis in this case include stroke, ICH, subarachnoid bleeding, spinal cord injury, GBS, tick paralysis, myasthenia gravis, botulism, alcohol myopathy, myositis, electrolyte disorders, thyroid disease, sepsis, ACS, carbon monoxide poisoning, dehydration, anemia, presyncope, as well as medication reaction. A combination of history/physical exam/labs were used to discern the most likely etiology. Specific laboratories considered and/or obtained include CBC, CMP,Troponin EKG as well as noting his temperature was bit elevated so did blood cultures and chest x-ray to look for underlying etiology. Patient with report of fall at home and CT head obtained. Noted to have inf iltrate on the left side of chest not hypoxic not tachycardic blood pressures did trend down in the ED gave him 250 cc of fluid here. Will attempt to obtain a urinalysis on the patient as well. Lactate was negative white blood cell count was elevated. Patient treated with Rocephin 1 g IV in the emergency department. I discussed case with Dr. Bales and he will present to the emergency department to evaluate the patient for admission. - Lab Data Result diagrams: 10/31/19 09:14 10/31/19 09:14 Lab Results 10/31/19 10/31/19 10/31/19 Range/Units 09:14 09:14 09:14 WBC 24.8 H (4.50-11.00) K/mcL RBC 3.33 L (4.63-6.08) M/mcL Hgb 9.8 L (13.7-17.5) g/dL Hct 29.7 L (40.1-51.0) % MCV 89.2 (80.0-100.0) fL MCH 29.4 (26.0-34.0) pg MCHC 33.0 (31.0-36.0) g/dL RDW 14.9 H (11.5-14.5) % Plt Count 391 (140-440) K/mcL MPV 9.5 (7.4-10.4) fL Gran % 89.1 H (38.0-78.0) % Lymph % (Auto) 2.6 L (15.5-49.0) % [place] % (Auto) 7.9 (1.0-12.0) % Eos % (Auto) 0.2 (0.0-7.0) % Baso % (Auto) 0.2 (0.0-2.0) % Gran # 22.06 H (1.80-8.00) K/mcL Lymph # (Auto) 0.65 L (1.50-4.80) K/mcL [place] # (Auto) 1.95 H (0.10-0.90) K/mcL Eos # (Auto) 0.05 (0.00-0.70) K/mcL Baso # (Auto) 0.05 (0.00-0.30) K/mcL VBG Lactic Acid (0.5-2.0) mmol/L Sodium 129 L (133-145) mmol/L Potassium 4.6 (3.3-5.1) mmol/L Chloride 91 L (96-108) mmol/L Carbon Dioxide 26 (22-30) mmol/L Anion Gap 12.0 (8-16) BUN 37 H (8-23) mg/dl Creatinine 5.6 H* (0.7-1.2) mg/dl GFR Calculation 10 Glucose 134 H (70-105) mg/dL Calcium 8.8 (8.6-10.4) mg/dl Total Bilirubin 0.4 (0.0-1.0) mg/dL AST 28 (0-37) U/l ALT 21 (0-40) U/l Alkaline Phosphatase 139 H (39-117) U/L Troponin T 0.42 H* (0-0.03) ng/ml Total Protein 6.8 (5.9-8.4) gm/dL Albumin 2.8 L (3.2-5.2) gm/dL Globulin 4.0 H (2.2-3.7) gm/dL Albumin/Globulin Ratio 0.7 L (1.0-2.3) 10/31/19 10/31/19 Range/Units 09:47 12:03 WBC (4.50-11.00) K/mcL RBC (4.63-6.08) M/mcL Hgb (13.7-17.5) g/dL Hct (40.1-51.0) % MCV (80.0-100.0) fL MCH (26.0-34.0) pg MCHC (31.0-36.0) g/dL RDW (11.5-14.5) % Plt Count (140-440) K/mcL MPV (7.4-10.4) fL Gran % (38.0-78.0) % Lymph % (Auto) (15.5-49.0) % [place] % (Auto) (1.0-12.0) % Eos % (Auto) (0.0-7.0) % Baso % (Auto) (0.0-2.0) % Gran # (1.80-8.00) K/mcL Lymph # (Auto) (1.50-4.80) K/mcL [place] # (Auto) (0.10-0.90) K/mcL Eos # (Auto) (0.00-0.70) K/mcL Baso # (Auto) (0.00-0.30) K/mcL VBG Lactic Acid 0.6 (0.5-2.0) mmol/L Sodium (133-145) mmol/L Potassium (3.3-5.1) mmol/L Chloride (96-108) mmol/L Carbon Dioxide (22-30) mmol/L Anion Gap (8-16) BUN (8-23) mg/dl Creatinine (0.7-1.2) mg/dl GFR Calculation Glucose (70-105) mg/dL Calcium (8.6-10.4) mg/dl Total Bilirubin (0.0-1.0) mg/dL AST (0-37) U/l ALT (0-40) U/l Alkaline Phosphatase (39-117) U/L Troponin T 0.40 H* (0-0.03) ng/ml Total Protein (5.9-8.4) gm/dL Albumin (3.2-5.2) gm/dL Globulin (2.2-3.7) gm/dL Albumin/Globulin Ratio (1.0-2.3) - EKG Data EKG results narrative: EKG: Rate: 80, NC: 146, rhythm: Accelerated junctional, patient without ST elevations to suggest STEMI, patient without concerning T wave inversions or other findings to suggest NSTEMI Disposition Pt seen by [employer] INSTRUCTOR/PA only: No Clinical Impression: Sepsis Qualifiers: Sepsis type: sepsis due to unspecified organism Sepsis acute organ dysfunction status: without acute organ dysfunction Qualified Code(s): A41.9 - Sepsis, unspecified organism Disposition: Xfer As Inpt ([facility]) Condition: Serious Referrals: Real Mann ARNP [Primary Care Provider] -
--- NOTE | 2019-10-31 09:41 | Cat Scan Report ---
CLINICAL INFORMATION: Trauma COMPARISON: Head CT 10/29/2019. TECHNIQUE: 2.5 mm helical slices were obtained in the skull base to vertex. Following reconstruction, axial reformatted images were reviewed at bone and parenchymal windows. The exam was performed using radiation dose optimization techniques including, but not limited to, automated exposure control, adjustment of the mA and/or kV according to patient size and use of iterative reconstruction technique. FINDINGS: The ventricles, sulci, fissures, and cisterns are symmetrically enlarged compatible with moderate atrophy. There is no subdural hemorrhage or other extra-axial fluid collection. Mild patchy chronic ischemic changes in deep cerebral white matter are again seen. An 8 mm remote linear infarct in the inferior left occipital lobe and moderate cortical-based infarct in the left superior cerebellar vermis with a second moderate remote infarct in the inferior left cerebellar hemisphere and vermis are all seen on the prior study. There is no intracerebral hemorrhage, mass effect, edema or other acute intracerebral abnormality. Bone windows show no fracture. IMPRESSION: No intracerebral hemorrhage or other acute posttraumatic change. Moderate atrophy, chronic ischemic changes in cerebral white matter and remote left cerebellar and occipital lobe infarcts all stable. Interpreted and Authenticated by: Georges Herrera 10/31/19
[2019-10-31 10:03] LABS: Basophils # (Auto) 0.05 K/mcL (0.00-0.30); Basophils % (Auto) 0.2 % (0.0-2.0); Eosinophils # (Auto) 0.05 K/mcL (0.00-0.70); Eosinophils % (Auto) 0.2 % (0.0-7.0); Granulocytes % (Auto) 89.1 % (38.0-78.0); Hematocrit 29.7 % (40.1-51.0); Hemoglobin 9.8 g/dL (13.7-17.5); Lymphocytes # (Auto) 0.65 K/mcL (1.50-4.80); Lymphocytes % (Auto) 2.6 % (15.5-49.0); Mean Cell Volume 89.2 fL (80.0-100.0); Mean Platelet Volume 9.5 fL (7.4-10.4); Monocytes # (Auto) 1.95 K/mcL (0.10-0.90); Monocytes % (Auto) 7.9 % (1.0-12.0); Platelet Count 391 K/mcL (140-440); RBC 3.33 M/mcL (4.63-6.08); Red Cell Distribution Width 14.9 % (11.5-14.5); WBC 24.8 K/mcL (4.50-11.00)
--- NOTE | 2019-10-31 10:13 | XRay Report ---
CLINICAL INFORMATION: CP/dyspnea COMPARISON: 10/14/2018 FINDINGS: Implantable cardioverter defibrillator is in stable satisfactory position. Heart is mildly enlarged but unchanged. Mediastinum and pulmonary vessels are normal. Small vague left basilar infiltrate developing. Minor right basilar atelectasis. No effusion IMPRESSION: Mild cardiomegaly and possible developing left basilar infiltrate Interpreted and Authenticated by: Georges Herrera 10/31/19
[2019-10-31] MEDS ORDERED: cefTRIAXone 1 GM VIAL IV ONE (10:20)
[2019-10-31 10:28] LABS: ALT/SGPT 21 U/l (0-40); AST/SGOT 28 U/l (0-37); Albumin 2.8 gm/dL (3.2-5.2); Albumin/Globulin Ratio 0.7 (1.0-2.3); Alkaline Phosphatase 139 U/L (39-117); Bilirubin,Total 0.4 mg/dL (0.0-1.0); Blood Urea Nitrogen 37 mg/dl (8-23); Calcium 8.8 mg/dl (8.6-10.4); Carbon Dioxide 26 mmol/L (22-30); Glucose 134 mg/dL (70-105)
[2019-10-31 10:30] LABS: Chloride 91 mmol/L (96-108); Glomerular Filtration Rate 10
[2019-10-31] MEDS ORDERED: 0.9 % SODIUM CHLORIDE 250 ML IV ONE ×2 (11:41→23:21)
--- NOTE | 2019-10-31 13:56 | Internal Med History&Physical ---
Medical - H&P: [facility] Patient information: Note initiated : 10/31/19 at 1:52 pm Service Date, if different from initiated Date: [] Patient: Eliezer Mahmood 69 y/o M admitted on for Dizziness, Weakness. Chief Complaint: [] History of present illness: Mr. Mahmood is a 69 year old M Sent in from [facility] for increased weakness lethargy following for the past time. Also report of confusion? Have no idea as patient is a poor historian. And no chart notes from the facility. Patient does not feel like he has been particularly weaker than usual but does admit to falling lately and could not give me any details surrounding that. Is found to be febrile here but denies fevers. Chest x-ray with suspected i nfiltrate left lower lobe patient denies coughing. States he has been having some urinary issues for which he seen his urologist but could not give me the name. Denies coughing. In the ED lactate was okay. He was hypotensive in the 80s initially was given a small fluid bolus with good response. He had an elevated troponin which he had chronically but today it was worse than usual. He denies any chest pain and EKG no acute findings. Repeat troponin was slightly decreased. Case was discussed with his assistant manager of operations. Attempting to get a urine sample. Patient oriented but drowsy. Old med list states laxatives but we do not have verification of current home medications yet CT brain no acute findings, moderate atrophy and chronic ischemic changes and remote left cerebellar and occipital lobe infarcts Chest x-ray with a small vague left basilar infiltrate developing Review of Systems: Pertinent positives as above. Does admit to a little bit of diarrhea . denies headache/fever/chills/nausea/vomiting/chest or abdominal pain/cough/dyspnea/Remaining 10 point review of system reviewed negative Medical - H&P: [facility] Medical history: Medical History (Last Updated 03/08/19 @ 13:19 by Luis Miguel Whitt DO) Anticoagulated on Coumadin (Chronic) Atrial fibrillation (Chronic) Dilated cardiomyopathy (Chronic) DMII (diabetes mellitus, type 2) (Chronic) Obstructive sleep apnea (Chronic) CHF (congestive heart failure), NYHA class II (Chronic) Cerebral artery occlusion with cerebral infarction (Chronic) Chronic kidney disease, stage III (moderate) (Chronic) CKD (chronic kidney disease) (Chronic) ICD (implantable cardioverter-defibrillator) in place (Chronic 10/14/10) Hypertension, essential (Chronic) Hyperlipidemia (Chronic) Obesity, morbid (Chronic) Alzheimer's dementia (Chronic) Gout (Chronic) Tachycardia (Chronic) Shortness of breath (Chronic) Neuropathy (Chronic) Hypotension (Chronic) Lower extremity edema (Chronic) Osteoarthritis (Chronic) Dizzy spells (Chronic) Depression (Chronic) Deafness (Chronic) DDD (degenerative disc disease), lumbar (Chronic) Cognitive impairment (Chronic) Anxiety (Chronic) Dyspnea on exertion (Chronic) Encounter for chronic pain management (Chronic) Osteoporosis (Chronic) Lumbar disc prolapse with compression radiculopathy (Chronic) Coronary atherosclerosis (Chronic) Peripheral vertigo (Chronic) Paresis of lower extremity (Chronic) Persistent insomnia (Chronic) Recurrent major depression (Chronic) Restless leg syndrome (Chronic) Recurrent vertigo (Chronic) Recurrent falls (Chronic) 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/12) Sinusitis, chronic (Chronic) Arthritis (Chronic) Acid reflux (Chronic) History of tobacco use (Chronic) Acute metabolic encephalopathy (Resolved) Bacterial liver abscess (Resolved) Blurry vision (Resolved) Complicated UTI (urinary tract infection) (Resolved) Contusion of scalp (Resolved) Contusion of shoulder region (Resolved) Costochondral pain (Resolved) Double vision (Resolved) Exacerbation of chronic back pain (Resolved) History of gastroesophageal reflux (GERD) (Resolved) History of head injury (Resolved) History of pneumonia (Resolved) Light-headedness (Resolved) Lumbar strain (Resolved) Muscle strain of lower leg (Resolved) Pain in both lower legs (Resolved) Rib pain on left side (Resolved) Sepsis (Resolved) UTI (urinary tract infection) (Resolved) Heart trouble (Inactive) Joint pain (Inactive) Weight gain (Inactive) Past Surgical History H/O carpal tunnel repair (Chronic) H/O colonoscopy (Chronic 11/20/12) H/O gastric bypass (Chronic 07/28/15) H/O right heart catheterization (Chronic 05/17/13) History of arthroscopy of both knees (Chronic) History of cardioversion (Chronic) History of cholecystectomy (Chronic) History of implantable cardioverter-defibrillator (ICD) placement (Chronic 10/25/10) History of left heart catheterization (Chronic 07/16/13) History of nasal surgery (Chronic 11/22/10) History of tonsillectomy and adenoidectomy (Chronic) Hx of cataract surgery (Chronic) S/P tendon repair (Chronic) Family History Father Arthritis Colon cancer Leukemia Mother Arthritis Family/Other Arthritis Social History (Last Updated 12/19/18 @ 11:12 by Maryan Hagen MD) Patient quit smoking 40 years ago does not use alcohol ambulates with a walker resides at [facility] Medical - H&P: Meds Home Medications Medication Instructions Recorded Confirmed Type Carvedilol [Coreg] 12.5 mg PO BID 11/17/15 04/27/19 History cholecalciferol (vitamin D3) 50 1,000 unit PO QDAY 02/25/16 04/27/19 History mcg (2,000 unit) capsule cyanocobalamin (vitamin B-12) 500 mcg PO QDAY 02/25/16 04/27/19 History 1,000 mcg tablet cyclosporine 0.05 % eye drops in a 2 drp OPHTHALMIC DAILY 02/25/16 04/28/19 History dropperette oxygen 5 units INHALATION QHS 02/25/16 10/14/18 History ropinirole 0.25 mg tablet 1 mg PO BID tab 02/25/16 04/27/19 History pen needle, diabetic See Dose Instructions .ROUTE 02/26/16 10/14/18 History .MEDSUPPLY MDD 45 units insulin aspart U-100 100 unit/mL 10 unit SUB-Q ONCE #15 ml 07/08/16 04/28/19 Rx (3 mL) subcutaneous pen Allopurinol [Zyloprim] 200 mg PO QAM 10/09/18 04/27/19 History Atorvastatin [Lipitor] 5 mg PO QPM 10/09/18 04/27/19 History Bisacodyl [Dulcolax] 10 mg [place] DAILYP PRN 10/09/18 04/27/19 History Docusate Sodium [Colace] 100 mg PO BID 10/09/18 04/27/19 History Gabapentin [Neurontin] 600 mg PO TID 10/09/18 04/27/19 History Magnesium Hydroxide [Milk of 30 ml PO DAILYP PRN 10/09/18 04/27/19 History Magnesia] Memantine [Namenda] 10 mg PO BID 10/09/18 04/27/19 History Na Phos,M-B/Na Phos,Di-Ba [Fleets 1 dose [place] DAILYP PRN 10/09/18 05/02/19 History Adult] Ferrous Sulfate/Vit C/Folic AC 1 each PO DAILY 10/14/18 04/27/19 History [Folitab 500 Caplet] Pantoprazole Sodium [Protonix] 20 mg PO DAILY 10/14/18 04/28/19 History insulin detemir U-100 100 unit/mL 2 unit SUB-Q BID ml 12/19/18 10/31/19 History subcutaneous solution lansoprazole 30 mg delayed 30 mg PO BID tab 12/19/18 10/31/19 History release,disintegrating tablet misoprostol 100 mcg tablet 100 mcg PO QAM tab 12/19/18 10/31/19 History multivitamin 1 tab PO QAM 12/19/18 10/31/19 History sertraline 100 mg tablet 150 mg PO QHS tab 12/19/18 10/31/19 History Fexofenadine 60 mg PO QAM 04/27/19 04/27/19 History Loteprednol Etabonate [Lotemax] 1 drp OU QID 04/27/19 10/31/19 History Melatonin 10 mg PO QHS 04/27/19 10/31/19 History Nepafenac [Ilevro] 1 drp OU QAM 04/27/19 10/31/19 History Warfarin [Coumadin] 2.5 mg PO DAILY 04/27/19 10/31/19 History clonazePAM [KlonoPIN] 0.25 mg PO QAM 04/27/19 10/31/19 History hydrOXYzine [Atarax] 25 mg PO QHS 04/27/19 10/31/19 History traZODone HCL [Trazodone HCl] 50 mg PO QPM 04/27/19 10/31/19 History Fexofenadine [Ophelia] 60 mg PO DAILY 04/28/19 10/31/19 History Furosemide [Lasix] 40 mg PO BID 04/28/19 10/31/19 History Glycerin/Propylene Glycol 30 ml OP DAILY 04/28/19 04/28/19 History [Artificial Tears Drops] Ertapenem [Invanz] 1 gm IV Q24H #4 vial 05/02/19 Rx predniSONE [Prednisone] 20 mg PO QAC #5 tab 06/03/19 Rx Methocarbamol [Robaxin] 750 mg PO Q6-8HP PRN #30 tab 09/29/19 Rx HYDROcodone/APAP 5/325MG [[place] 1 tab PO Q4HP PRN #20 tab 10/29/19 Rx 5-325Mg] Lisinopril [Zestril] 2.5 mg PO QAM 10/31/19 10/31/19 History Allergies Allergy/AdvReac Type Severity Reaction Status Date / Time morphine Allergy Mild Rash Verified 10/31/19 08:35 Tizanidine Allergy Unknown Confusion Verified 10/31/19 08:35 Medical - H&P: Exam - Constitutional Vitals: Temp Pulse Resp BP Pulse Ox 100.5 F H 80 20 96/58 93 10/31/19 08:35 10/31/19 13:11 10/31/19 12:45 10/31/19 13:11 10/31/19 13:11 Exam: General: Somnolent No acute Distress Eyes/N/T: EOMI, PERRL, dry MM Head/Neck: neck supple, normocephalic atraumatic CV: paced RRR, No murmurs, normal s1/s2 Pulm: Clear b/l, no wheezing/rhonchi/rales Abd: soft, nontender, +BS x4 Ext: no clubbing/cyanosis/edema Neuro: Somnolent but opens eyes to voice and answers questions appropriately , A&Ox4, no focal deficits, moves all extremities, CN 2-12 grossly intact, symmetrical strength b/l upper/lower, sensations intact b/l upper/lower Skin: warm/dry Medical - H&P: Reslt - Labs CBC & Chem 7: 10/31/19 09:14 10/31/19 09:14 Labs: Short CBC 10/31/19 Range/Units 09:14 WBC 24.8 H (4.50-11.00) K/mcL Hgb 9.8 L (13.7-17.5) g/dL Hct 29.7 L (40.1-51.0) % Plt Count 391 (140-440) K/mcL BMP 10/31/19 09:14 Sodium 129 L Potassium 4.6 Chloride 91 L Carbon Dioxide 26 BUN 37 H Creatinine 5.6 H* Glucose 134 H Calcium 8.8 Cardiac Enzymes 10/31/19 10/31/19 Range/Units 09:14 12:03 Troponin T 0.42 H* 0.40 H* (0-0.03) ng/ml Liver Function 10/31/19 Range/Units 09:14 Total Bilirubin 0.4 (0.0-1.0) mg/dL AST 28 (0-37) U/l ALT 21 (0-40) U/l Alkaline Phosphatase 139 H (39-117) U/L Albumin 2.8 L (3.2-5.2) gm/dL Medical - H&P: A/P - Narrative A/P Narrative: A: *?PNA(LLL): *Sepsis w/hypotension: -hypotension resolved in ED with fluid bolus. lactate ok *Encephalopathy(lethargy): *ESRD: Follows with Dr. Capellan *Anemia, chronic: *Hyponatremia: *Afib: On warfarin, carvedilol. was on dig in past *Dilated CMP (20% in 2019) with ACID/PPM: BB/lasix *h/o CVA: *DM: *HTN/HLD: On Coreg and lisinopril *Depression: *Dementia: On Namenda *GERD: P: -broad abx vanc/zosyn for now, pending UA, pending BC/SC -repeat cxr in AM -check pct/inr -monitor BP closely, hold BP meds for now -decrease gabapentin, minimize sedation medications -Clarify and update home medication list -basal insulin and SSI -pt/ot -ppx: Heparin/home PPI Full code
[2019-10-31 14:10] LABS: Prothrombin Time 54.2 sec (11.9-14.5)
[2019-10-31] MEDS ORDERED: DEXTROSE 50% 50 ML VIAL IV PRN (14:54)
[2019-10-31] MEDS ORDERED: IPRATROPIUM/ALBUTEROL 3 ML AMPUL.NEB NEB PRN (14:54)
[2019-10-31] MEDS ORDERED: POLYETHYLENE GLYCOL 3350 17 GM PACKET PO PRN (14:54)
[2019-10-31] MEDS ORDERED: ONDANSETRON 4 MG/2 ML VIAL IV PRN (14:54)
[2019-10-31] MEDS ORDERED: DEXTROSE 31 GM ORAL.SUSP PO PRN (14:54)
[2019-10-31] MEDS ORDERED: MAGNESIUM SULFATE 2 GM/50 ML BAG IV PRN (14:54)
[2019-10-31] MEDS ORDERED: SENNOSIDES 1 TABLET PO PRN (14:54)
[2019-10-31] MEDS ORDERED: LACTULOSE 20 GM/30 ML ORAL.SOL PO PRN (14:54)
[2019-10-31] MEDS ORDERED: clonazePAM 0.5 MG TABLET PO PRN (14:54)
[2019-10-31] MEDS ORDERED: POTASSIUM CHLORIDE 20 MEQ TABLET PO PRN ×2 (14:54)
[2019-10-31] MEDS ORDERED: VANCOMYCIN PER PHARMACY IV SCH (14:54)
[2019-10-31] MEDS ORDERED: POTASSIUM CHLORIDE 40 MEQ in DEXTROSE 5% IN WATER 500 ML IV PRN (14:54)
[2019-10-31 14:56] LABS: Appearance,Urine HAZY; Bacteria,Urine 0 /hpf (0); Bilirubin,Urine NEG (NEG); Color,Urine YELLOW; Culture Indicated,Urine YES; Glucose,Urine (UA) NEGATIVE (NEG); Ketones,Urine NEG (NEG); Leukocyte Esterase,Urine 500 /uL (NEG); Nitrate,Urine NEG (NEG); Protein,Urine 100 mg/dL (NEG); Specific Gravity,Urine 1.016 (1.000-1.035); Urine Blood 0.2 mg/dL (<0.03); Urine RBC 1 /hpf (0-1); Urine Squamous Epithelial Cell 1 /hpf (0-4); Urine Transitional Epi Cells < 1 /hpf (0-2); Urine WBC 60 /hpf (0-4); Urobilinogen,Urine NEG (NEG)
[2019-10-31] MEDS: PIPERACILLIN SODIUM/TAZOBACTAM 2.25 GM in DEXTROSE 5% IN WATER 50 ML IV SCH ×2 (15:22→23:00)
[2019-10-31] MEDS: 0.9 % SODIUM CHLORIDE 10 ML SYRINGE IV SCH ×2 (16:05→20:41)
[2019-10-31] MEDS: INSULIN LISPRO 1 UNIT/0.01 ML UNIT SQ SCH ×2 (16:57→20:52)
[2019-10-31] MEDS: LOTEPREDNOL ETABONATE EYE OU SCH ×2 (18:36→20:52)
[2019-10-31] MEDS: PANTOPRAZOLE 40 MG TABLET PO SCH (18:37)
[2019-10-31] MEDS: ACETAMINOPHEN 325 MG TABLET PO PRN (20:39)
[2019-10-31] MEDS: DOCUSATE SODIUM 100 MG CAPSULE PO SCH (20:40)
[2019-10-31] MEDS: FUROSEMIDE 40 MG TABLET PO SCH (20:41)
[2019-10-31] MEDS: INSULIN GLARGINE, HUMAN 1 UNIT/0.01 ML SQ SCH (20:51)
[2019-10-31] MEDS ORDERED: SERTRALINE 50 MG TABLET PO SCH (21:00)
[2019-10-31] MEDS ORDERED: VANCOMYCIN 1,500 MG in 0.9 % SODIUM CHLORIDE 500 ML IV ONE (21:00)
[2019-10-31] MEDS ORDERED: traZODone HCL 50 MG TABLET PO SCH (21:00)
[2019-10-31] MEDS ORDERED: MELATONIN 3 MG TABLET PO SCH (21:00)
[2019-10-31] MEDS ORDERED: FAMOTIDINE 20 MG TABLET PO SCH (21:00)
[2019-10-31] MEDS ORDERED: HEPARIN 5,000 UNIT/ML VIAL SQ SCH (21:00)
[2019-10-31] MEDS ORDERED: PHENYLEPHRINE 10 MG in 0.9 % SODIUM CHLORIDE 499 ML IV SCH (23:30)
[2019-11-01] MEDS: 0.9 % SODIUM CHLORIDE 250 ML IV SCH ×2 (05:37→11:37)
[2019-11-01] MEDS: PIPERACILLIN SODIUM/TAZOBACTAM 2.25 GM in DEXTROSE 5% IN WATER 50 ML IV SCH (05:46)
[2019-11-01] MEDS: 0.9 % SODIUM CHLORIDE 10 ML SYRINGE IV SCH ×2 (06:09→13:37)
[2019-11-01 06:38] LABS: Hematocrit 28.5 % (40.1-51.0); Hemoglobin 9.3 g/dL (13.7-17.5); Mean Cell Volume 90.8 fL (80.0-100.0); Mean Corpuscular HGB Conc 32.6 g/dL (31.0-36.0); Mean Platelet Volume 9.6 fL (7.4-10.4); Platelet Count 387 K/mcL (140-440); RBC 3.14 M/mcL (4.63-6.08); Red Cell Distribution Width 15.2 % (11.5-14.5); WBC 27.7 K/mcL (4.50-11.00)
[2019-11-01 07:16] LABS: INR 6.2 (0.9-1.1); Prothrombin Time 55.2 sec (11.9-14.5)
[2019-11-01 07:25] LABS: ALT/SGPT 16 U/l (0-40); AST/SGOT 22 U/l (0-37); Albumin 2.3 gm/dL (3.2-5.2); Albumin/Globulin Ratio 0.6 (1.0-2.3); Alkaline Phosphatase 135 U/L (39-117); Bilirubin,Direct < 0.2 mg/dL (0.0-0.3); Bilirubin,Total 0.3 mg/dL (0.0-1.0); Blood Urea Nitrogen 18 mg/dl (8-23); Calcium 8.5 mg/dl (8.6-10.4); Carbon Dioxide 27 mmol/L (22-30); Chloride 97 mmol/L (96-108); Globulin 3.7 gm/dL (2.2-3.7); Glomerular Filtration Rate 17; Glucose 69 mg/dL (70-105); Lactate Dehydrogenase 178 U/L (94-250); Phosphorous 3.7 mg/dL (2.7-4.5); Triglycerides 95 mg/dl (<150)
[2019-11-01] MEDS ORDERED: METHOCARBAMOL 750 MG TABLET PO PRN (07:42)
[2019-11-01] MEDS ORDERED: BISACODYL 10 MG SUPP.RECT PR PRN (07:42)
[2019-11-01] MEDS ORDERED: POLYVINYL ALCOHOL OPHTH DROPS 15ML BOTTLE OU PRN (07:42)
[2019-11-01] MEDS ORDERED: WARFARIN SODIUM 3 MG PO SCH (07:45)
--- NOTE | 2019-11-01 07:55 | Internal Med Progress Note ---
Medical - PN: Subj Patient information: Note initiated : 11/01/19 at 7:44 am Service Date, if different from initiated Date: [] Patient: Eliezer Mahmood a 69 y/o M admitted on 10/31/19 for Dizziness, Weakness. Chief Complaint: [] Interval history: Mr. Mahmood is a 69 year old M Sent in from [facility] for increased weakness lethargy following for the past time. Also report of confusion? Have no idea as patient is a poor historian. And no chart notes from the facility. Patient does not feel like he has been particularly weaker than usual but does admit to falling lately and could not give me any details surrounding that. Is found to be febrile here but denies fevers. Chest x-ray with suspected in filtrate left lower lobe patient denies coughing. States he has been having some urinary issues for which he seen his urologist but could not give me the name. Denies coughing. In the ED lactate was okay. He was hypotensive in the 80s initially was given a small fluid bolus with good response. He had an elevated troponin which he had chronically but today it was worse than usual. He denies any chest pain and EKG no acute findings. Repeat troponin was slightly decreased. Case was discussed with his sales professional. Attempting to get a urine sample. Patient oriented but drowsy. Old med list states laxatives but we do not have verification of current home medications yet CT brain no acute findings, moderate atrophy and chronic ischemic changes and remote left cerebellar and occipital lobe infarcts Chest x-ray with a small vague left basilar infiltrate developing 11/01 Still appears drowsy but states he feels better. Blood pressure soft but not needing any vasopressors overnight. Leukocytosis worsened today but no bandemia. Last fever was one 1.3 yesterday 8 AM. Blood cultures both sets growing gram- positive cocci. Patient has history of MRSA in the nares. He is alert and oriented. Review of Systems: denies headache/fever/chills/nausea/vomiting/chest or abdominal pain/c ough/dyspnea/diarrhea. Otherwise see above. - Constitutional Vitals: Vital Signs Temp Pulse Resp BP Pulse Ox 98.2 F 80 19 89/48 93 11/01/19 05:58 11/01/19 04:00 11/01/19 04:00 11/01/19 04:00 11/01/19 04:00 Period Temp Pulse Resp BP Sys/[place] Pulse Ox Last 24 Hr 97.7 F-101.3 F 75-94 14-34 66-119/33-76 86-100 Intake and Output 10/31/19 11/01/19 11/01/19 21:59 05:59 13:59 Intake Total 50 420 Output Total 1450 140 Balance -1400 280 Weight 88.314 kg Intake & Output: Intake & Output 10/31/19 11/01/19 11/01/19 21:59 05:59 13:59 Intake Total 50 420 Output Total 1450 140 Balance -1400 280 Weight 88.314 kg Intake: IV 50 300 Sodium Chloride 0.9% 250 ml @ 250 Wide Open IV BOLUS ONE Rx#: [id number] Zosyn 2.25 gm In Dextrose 5% in 50 50 Water 50 ml @ 100 mls/hr IV Q8H JEM Rx#:[id number] Oral 0 120 Output: Urine Catheter Amount 140 Hemodialysis UF 1450 Other: Urine Appearance Cloudy Purulent Urine Color Dark Yellow Exam: General: drowsy but awakens easily, No acute Distress Eyes/N/T: EOMI, Head/Neck: neck supple, CV: paced RRR, No murmurs, Pulm: Clear b/l, no wheezing/rhonchi/rales Abd: soft, nontender, +BS x4 Ext: no clubbing/cyanosis/edema Neuro: drowsy ,A&Ox4, no focal deficits, moves all extremities, Skin: warm/dry Medical - PN: Obj Da - Labs CBC & Chem 7: 11/01/19 04:55 11/01/19 04:55 Labs: Abnormal Lab Results 11/01/19 11/01/19 11/01/19 04:55 04:55 04:55 WBC 27.7 H RBC 3.14 L Hgb 9.3 L Hct 28.5 L RDW 15.2 H Gran % Lymph % (Auto) Gran # Lymph # (Auto) [place] # (Auto) PT 55.2 H INR 6.2 H* Sodium Chloride BUN Creatinine 3.4 H Glucose 69 L Uric Acid 2.0 L Calcium 8.5 L Alkaline Phosphatase 135 H Troponin T Albumin 2.3 L Globulin Albumin/Globulin Ratio 0.6 L Urine Protein Urine Occult Blood Ur Leukocyte Esterase Urine WBC 10/31/19 10/31/19 10/31/19 14:33 12:03 09:14 WBC RBC Hgb Hct RDW Gran % Lymph % (Auto) Gran # Lymph # (Auto) [place] # (Auto) PT 54.2 H INR 6.0 H* Sodium Chloride BUN Creatinine Glucose Uric Acid Calcium Alkaline Phosphatase Troponin T 0.40 H* Albumin Globulin Albumin/Globulin Ratio Urine Protein 100 A Urine Occult Blood 0.2 A Ur Leukocyte Esterase 500 A Urine WBC 60 H 10/31/19 10/31/19 10/31/19 09:14 09:14 09:14 WBC 24.8 H RBC 3.33 L Hgb 9.8 L Hct 29.7 L RDW 14.9 H Gran % 89.1 H Lymph % (Auto) 2.6 L Gran # 22.06 H Lymph # (Auto) 0.65 L [place] # (Auto) 1.95 H PT INR Sodium 129 L Chloride 91 L BUN 37 H Creatinine 5.6 H* Glucose 134 H Uric Acid Calcium Alkaline Phosphatase 139 H Troponin T 0.42 H* Albumin 2.8 L Globulin 4.0 H Albumin/Globulin Ratio 0.7 L Urine Protein Urine Occult Blood Ur Leukocyte Esterase Urine WBC Meds: Medications Acetaminophen (Tylenol) 650 mg PO Q6HP PRN PRN Reason: PAIN/FEVER > 101 Last Admin: 10/31/19 20:39 Dose: 650 mg Documented by: Albuterol/Ipratropium (Duoneb) 3 ml NEB Q4HP PRN PRN Reason: Shortness Of Breath Clonazepam (Klonopin) 0.25 mg PO DAILYP PRN PRN Reason: Anxiety Dextrose (Dextrose 50%) 0 ml IV UD PRN PRN Reason: Hypoglycemia Diagnostic Test (Pha) (Accu-Chek) 1 each FS ACHS [facility] Last Admin: 10/31/19 20:38 Dose: 1 each Documented by: Docusate Sodium (Colace) 100 mg PO BID [facility] Last Admin: 10/31/19 20:40 Dose: 100 mg Documented by: Famotidine (Pepcid) 20 mg PO HS [facility] Last Admin: 10/31/19 20:40 Dose: 20 mg Documented by: Furosemide (Lasix) 40 mg PO BID [facility] Last Admin: 10/31/19 20:41 Dose: 40 mg Documented by: Glucose (Insta-Glucose) 15 gm PO PRN PRN PRN Reason: Hypoglycemia Heparin Sodium (Porcine) (Heparin) 5,000 unit SQ Q12 [facility] Last Admin: 10/31/19 20:41 Dose: 5,000 unit Documented by: Potassium Chloride 40 meq/ (Dextrose) 520 mls @ 130 mls/hr IV UD PRN PRN Reason: Potassium < 3 Magnesium Sulfate (Magnesium Sulfate) 2 gm in 50 mls @ 50 mls/hr IV UD PRN PRN Reason: Magnesium </= 1.6 Piperacillin Sod/Tazobactam (Sod 2.25 gm/ Dextrose) 50 mls @ 100 mls/hr IV Q8H [facility]; Protocol Last Admin: 11/01/19 05:46 Dose: 100 mls/hr Documented by: Phenylephrine HCl 10 mg/ (Sodium Chloride) 500 mls @ 132.471 mls/hr IV DUR [facility]; Protocol Sodium Chloride (Sodium Chloride 0.9%) 250 mls @ 20 mls/hr IV .[id number] [facility] Last Admin: 11/01/19 05:37 Dose: Not Given Documented by: Insulin Glargine (Lantus) 2 unit SQ BID [facility] Last Admin: 10/31/19 20:51 Dose: 2 units Documented by: Insulin Human Lispro (Humalog) 0 unit SQ ACHS [facility]; Protocol Last Admin: 10/31/19 20:52 Dose: Not Given Documented by: Lactulose (Cephulac) 20 gm PO DAILYP PRN PRN Reason: Constipation Melatonin (Melatonin 3mg Tablet) 9 mg PO QHS [facility] Last Admin: 10/31/19 20:40 Dose: 9 mg Documented by: Mupirocin (Bactroban Oint 2%) 1 dose NARES BID [facility] Ondansetron HCl (Zofran) 4 mg IV Q4HP PRN PRN Reason: Nausea And Vomiting Pantoprazole Sodium (Protonix) 40 mg PO BIDAC [facility] Last Admin: 10/31/19 18:37 Dose: Not Given Documented by: Loteprednol Etabonate [Lotemax] Eye Drops 1 dose OU QID [facility] Last Admin: 10/31/19 20:52 Dose: Not Given Documented by: Nepafenac [Ilevro] (Eye Drops) 1 dose OU QAM [facility] Polyethylene Glycol (Miralax) 17 gm PO DAILYP PRN PRN Reason: Constipation Potassium Chloride (Kdur) 40 meq PO UD PRN PRN Reason: Potssium is 3-3.5 Potassium Chloride (Kdur) 40 meq PO UD PRN PRN Reason: Potassium < 3 Senna (Senokot) 2 tab PO DAILYP PRN PRN Reason: Constipation Sertraline HCl (Zoloft) 150 mg PO QHS [facility] Last Admin: 10/31/19 20:39 Dose: 150 mg Documented by: Sodium Chloride (Saline Flush) 10 ml IV Q8 [facility] Last Admin: 11/01/19 06:09 Dose: Not Given Documented by: Trazodone HCl (Desyrel) 50 mg PO QPM [facility] Last Admin: 10/31/19 20:40 Dose: 50 mg Documented by: Vancomycin HCl (Vancomycin Per Pharmacy) 1 order IV [facility]; Protocol Warfarin Sodium (Coumadin Per Pharmacy) 1 order PO UD [facility] Medical - PN: A/P - Time Spent With Patient Total time spent is greater than 50% in coordination of care (as documented) at patient's floor/unit and/or counseling patient: - Narrative A/P Narrative: A: *UTI: *Bacteremia (GPC): *Sepsis w/hypotension: 2/2 above -hypotension resolved in ED with fluid bolus. lactate ok. no vasopressors needed but BP soft *Encephalopathy(lethargy): *Chronic O2 use at night: *ESRD: Follows with Dr. Capellan -has immature fistula right forearm and HD catheter *Anemia, chronic: *Hyponatremia: resolved *Afib w/PPM: On warfarin, carvedilol. was on dig in past *Coagulopathy: on warfarin *Dilated CMP (20% in 2019) with ACID/PPM: BB/lasix *h/o CVA: *DM: *HTN/HLD: On Coreg and lisinopril *Depression: *Dementia: On Namenda *GERD: P: -broad abx vanc/zosyn for now, pending UC/BC/SC -echo pending -Nephrology for HD -nephro ordered cx's from HD cath ports -ID consult for bacteremia -monitor BP closely, hold BP meds for now -decrease gabapentin, minimize sedation medications -nocturnal O2 per home or prn -IS/Acapella -basal insulin and SSI -pt/ot -ppx: warfarin per pharm (held while INR therapeutic)/home PPI Full code Medical - PN: Qual - Stroke Symptom Onset Unknown: No - VTE Deep Vein Thrombosis/Pulmonary Embolism Present on Admission: No
[2019-11-01] MEDS ORDERED: CARVEDILOL 12.5 MG TABLET PO SCH ×2 (08:00→17:30)
[2019-11-01 08:04] LABS: Lymphocytes % 7 % (15-49); Monocytes % (Manual) 5 % (1-12); Platelet Estimate NORMAL (NORMAL); RBC Morphology NORMAL (NORMAL); Segmented Neutrophils % 88 % (38-78)
[2019-11-01] MEDS: INSULIN LISPRO 1 UNIT/0.01 ML UNIT SQ SCH ×2 (08:32→11:48)
[2019-11-01] MEDS ORDERED: rOPINIRole 1 MG TABLET PO SCH (09:00)
[2019-11-01] MEDS ORDERED: ARTIFICIAL TEARS BOTH EYES SCH (09:00)
[2019-11-01] MEDS ORDERED: GABAPENTIN 100 MG CAPSULE PO SCH (09:00)
[2019-11-01] MEDS ORDERED: WARFARIN 2.5 MG TABLET PO SCH (09:00)
[2019-11-01] MEDS ORDERED: MUPIROCIN OINT 2% 22GM NARES SCH (09:00)
[2019-11-01] MEDS ORDERED: MEMANTINE 10 MG TABLET PO SCH (09:00)
[2019-11-01] MEDS ORDERED: ALLOPURINOL 100 MG TABLET PO SCH (09:00)
[2019-11-01] MEDS ORDERED: MISOPROSTOL 100 MCG TABLET PO SCH (09:00)
--- NOTE | 2019-11-01 09:28 | XRay Report ---
CLINICAL INFORMATION: f/u LLL infiltrate COMPARISON: 10/31/2019 FINDINGS: Moderate cardiomegaly unchanged. Implantable cardioverter defibrillator in stable position. Mediastinum and pulmonary vessels are normal. Left basilar infiltrate has nearly resolved with minimal residual. No effusion IMPRESSION: Near-complete resolution left basilar infiltrate Interpreted and Authenticated by: Georges Herrera 11/01/19
--- NOTE | 2019-11-01 10:31 | Consultation ---
DATE OF CONSULTATION: 11/01/2019 HISTORY OF PRESENT ILLNESS: The patient is a 69-year-old male with history of end-stage renal disease on hemodialysis. He dialyzes Mondays, Wednesdays, Fridays. He has had episodes of three previous urinary tract infections for which he saw Dr. Moctezuma. I think he had a cystoscopy, although I do not have the records. He has been confused on and off. He was initially started on hemodialysis about 6 months ago when he was hospitalized at [facility]. A few days ago, apparently he fell in the bathroom. [facility] for [facility]. I did not get a call from them afterwards. However, he continued to be confused on and off. Apparently, he was drowsy as well. He had a fever and for that reason, he was sent back into the emergency room. In the emergency room, he was found to have a high white count and a left lower lobe pneumonia for which he was hospitalized. PAST MEDICAL HISTORY: Significant for: 1. History of dilated cardiomyopathy. 2. History of atrial fibrillation on anticoagulation. 3. Sleep apnea. 4. History of CVA. 5. End-stage renal disease on hemodialysis. 6. Hypertension. 7. Dementia, Alzheimer's type. 8. Gout. PAST SURGICAL HISTORY: Carpal tunnel surgery, colonoscopy, gastric bypass, heart catheterization and cardioversions. FAMILY HISTORY: Significant for arthritis, colon cancer and leukemia in the family. SOCIAL HISTORY: He used to smoke but quit 40 years ago. No history of alcohol or drug use. He resides at [facility]. MEDICATIONS ON ADMISSION: 1. Coreg 12.5 mg twice daily. 2. Vitamin D3 1000 units once daily. 3. B12 1000 mcg once daily. 4. Cyclosporine eyedrops. 5. Allopurinol 200 mg once daily. 6. Atorvastatin 5 mg once daily. 7. Bisacodyl as needed. 8. Gabapentin 600 mg 3 times daily. 9. Namenda 10 mg twice daily. 10. Insulin. 11. Coumadin. 12. Lisinopril 2.5 mg once daily. ALLERGIES: MORPHINE, TIZANIDINE. REVIEW OF SYSTEMS: PHYSICAL EXAMINATION: GENERAL: Alert and oriented x3 in no apparent distress. VITAL SIGNS: Blood pressures have been 90 systolic with diastolic in the 50s, pulse rates have been in the 60s. HEENT: Normocephalic/atraumatic. Pupils are reactive to light. External auditory canal appears. Mouth: Normal mucosa. NECK: Supple. No jugular venous distention or lymphadenopathy. No thyromegaly. LUNGS: Decreased air entry bilaterally, a few rales in the left base. CARDIAC: S1 and S2. No S3, S4. No murmurs, no rubs. ABDOMEN: Soft, nontender. No organomegaly. Positive bowel sounds. No mass or rebound. EXTREMITIES: Did not show any evidence of edema. LABORATORY DATA: White count 27.7, hemoglobin 9.3, platelet count 387, sodium 137, potassium 3.7, chloride 97, BUN 27, creatinine 3.4. Uric acid is 8.4. ASSESSMENT AND PLAN: 1. End-stage renal disease on hemodialysis. He had his hemodialysis treatment yesterday, and tolerated the treatment fairly well. 2. Relative hypotension. I will hold his blood pressure pills. 3. Bacteremia. The question comes up if he could have underlying infection. He has a pressure area on his right upper extremity which looks fairly decent. If he has persistent bacteremia with antibiotics, we may have to discontinue the tunneled dialysis catheter. 5. Other medical problems, management per hospitalist team. IRAM:sanket Job ID: [id number] Doc ID: [id number] Aditya Capellan MD
[2019-11-01] MEDS: DOCUSATE SODIUM 100 MG CAPSULE PO SCH (11:27)
[2019-11-01] MEDS: PANTOPRAZOLE 40 MG TABLET PO SCH (11:27)
[2019-11-01] MEDS: ACETAMINOPHEN 325 MG TABLET PO PRN (11:28)
[2019-11-01] MEDS: INSULIN GLARGINE, HUMAN 1 UNIT/0.01 ML SQ SCH (11:29)
[2019-11-01] MEDS: LOTEPREDNOL ETABONATE EYE OU SCH ×2 (11:31→13:37)
[2019-11-01] MEDS: FUROSEMIDE 40 MG TABLET PO SCH (11:31)
--- NOTE | 2019-11-01 13:24 | Infectious Disease Consult ---
History of Present Illness Patient information: Note initiated : 11/01/19 at 1:21 pm Service Date, if different from initiated Date: [] Patient: Eliezer Mahmood 69 y/o M admitted on 10/31/19 for Dizziness, Weakness. Chief Complaint: [] Consult date: 11/01/19 Requesting Physician: Benito Bales Reason for Consult: MRSA bacteremia Chief complaint: i have chest pain History of present illness: 69 year old man with past history of: - ESRD on HD through left chest wall tunnelled dialysis catheter (placed about 1-1.5 years ago) and immature forearm AVF (placed about 2 weeks ago) - CVA - ICD placement in 2010 - CHF Pt was admitted on 10/31 after presenting to ED with c/o feeling weak and tired for last few days. He denied any fever, chills, skin boils, recent steroid injections or instrumentation. mentions that he got an AVF placed about 2 weeks ago in [place]. Endorsed dizziness at home leading to fall, following which he felt chest pain. He denied any other symptoms. He has been febrile at admission, low BP 107/70 which dropped further requiring pressor support for some time, satting well on room air. WBC 24k at adm -----> 27k today. Pt recieved IV ceftriaxone in ED then switched to IV Vanc and IV Zosyn. CT head didnot show any new focal hemorrhage, fracture. CXR doesnot show any fractures, and didnot show new chest infiltrates. At time of visit, his blood Cx had resulted with verigen PCR showing Staph aureus with +ve mecA gene implying MRSA. His nose screen also came positive for MRSA. Urine Cx showing Staph aureus. Pt had received IV vanc 1.5 gm yesterday after HD. Endorsed chest pain due to his recent fall. He denied any fever, joint pain, back pain, skin boils, recent procedures (other than AV fistula surgery as mentioned above). Denied any dizziness, shortness of breath. Review of Systems All systems PM: reviewed and no additional remarkable complaints except as stated Constitutional: as per HPI Past History Past family history: no sick contacts (to his knowledge) Past social history: is a resident of [facility] in [place], [place] Medications and Allergies Home Medications Medication Instructions Recorded Confirmed Type Carvedilol [Coreg] 25 mg PO BID 11/17/15 11/01/19 History cholecalciferol (vitamin D3) 50 1,000 unit PO QDAY 02/25/16 11/01/19 History mcg (2,000 unit) capsule cyanocobalamin (vitamin B-12) 500 mcg PO QDAY 02/25/16 11/01/19 History 1,000 mcg tablet oxygen 5 units INHALATION QHS 02/25/16 10/14/18 History ropinirole 0.25 mg tablet 1 mg PO BID tab 02/25/16 11/01/19 History pen needle, diabetic See Dose Instructions .ROUTE 02/26/16 10/14/18 History .MEDSUPPLY MDD 45 units insulin aspart U-100 100 unit/mL 10 unit SUB-Q ONCE #15 ml 07/08/16 11/01/19 Rx (3 mL) subcutaneous pen Allopurinol [Zyloprim] 200 mg PO QAM 10/09/18 11/01/19 History Atorvastatin [Lipitor] 5 mg PO QPM 10/09/18 11/01/19 History Bisacodyl [Dulcolax] 10 mg VT DAILYP PRN 10/09/18 11/01/19 History Docusate Sodium [Colace] 100 mg PO BID 10/09/18 11/01/19 History Gabapentin [Neurontin] 100 mg PO QDAY 10/09/18 11/01/19 History Magnesium Hydroxide [Milk of 30 ml PO DAILYP PRN 10/09/18 11/01/19 History Magnesia] Memantine [Namenda] 5 mg PO BID 10/09/18 11/01/19 History Na Phos,M-B/Na Phos,Di-Ba [Fleets 1 dose VT DAILYP PRN 10/09/18 11/01/19 History Adult] Pantoprazole Sodium [Protonix] 20 mg PO QAM 10/14/18 11/01/19 History insulin detemir U-100 100 unit/mL 2 unit SUB-Q BID ml 12/19/18 10/31/19 History subcutaneous solution lansoprazole 30 mg delayed 30 mg PO BID tab 12/19/18 10/31/19 History release,disintegrating tablet misoprostol 100 mcg tablet 100 mcg PO QAM tab 12/19/18 10/31/19 History multivitamin 1 tab PO QAM 12/19/18 10/31/19 History sertraline 100 mg tablet 150 mg PO QAM tab 12/19/18 11/01/19 History Loteprednol Etabonate [Lotemax] 1 drp BOTH EYES BID 04/27/19 11/01/19 History Melatonin 10 mg PO QHS 04/27/19 10/31/19 History Warfarin [Coumadin] 2 mg PO WEEKLY 04/27/19 11/01/19 History clonazePAM [KlonoPIN] 0.25 mg PO QAM 04/27/19 10/31/19 History hydrOXYzine [Atarax] 25 - 50 mg PO QHS 04/27/19 11/01/19 History traZODone HCL [Trazodone HCl] 50 mg PO QPM 04/27/19 10/31/19 History Fexofenadine [Ophelia] 60 mg PO DAILY 04/28/19 10/31/19 History Furosemide [Lasix] 20 mg PO BID 04/28/19 11/01/19 History Ophelia Allergy 60 mg PO QAM 11/01/19 11/01/19 History Artificial Tears 1 drp BOTH EYES Q8HP PRN 11/01/19 11/01/19 History Artificial Tears 1 drp BOTH EYES QAM 11/01/19 11/01/19 History High Potency Iron 325 mg PO QDAY 11/01/19 11/01/19 History Methocarbamol [Robaxin] 750 mg PO Q6HP PRN 11/01/19 11/01/19 History Sm Cough Drops 1 rekha PO Q2HP PRN 11/01/19 11/01/19 History Vitamin C 500 mg PO QDAY 11/01/19 11/01/19 History Warfarin Sodium 3 mg PO 2-3XW 11/01/19 11/01/19 History hydrOXYzine HCL 25 mg PO BID 11/01/19 11/01/19 History oxyCODONE HCL/ACETAMINOPHEN 5 - 325 mg PO Q6HP PRN 11/01/19 11/01/19 History Allergies Allergy/AdvReac Type Severity Reaction Status Date / Time morphine Allergy Mild Rash Verified 10/31/19 08:35 Tizanidine AdvReac Mild Confusion Verified 10/31/19 14:57 Physical Examination Vital signs: Temp Pulse Resp BP Pulse Ox 37.2 C 80 19 108/62 92 11/01/19 12:00 02/27/20 04:00 11/01/19 12:00 11/01/19 12:00 11/01/19 12:00 General appearance: no acute distress Eyes pulmonary: nonicteric ENT: oropharynx moist, other (no thrush, no carious teeth) Auscultation: bilateral: clear (clear except at bases), diminished breath sounds (at bases) Cardiovascular: other (s1 soft, s2 normal, 2/6 systolic murmur best heard at right 2nd ICS) Gastrointestinal: normoactive bowel sounds, soft, non-tender Integumentary: normal, other (has some broken nails (due to chewing). ) Extremities: no edema, pink and warm Musculoskeletal: other (no focal joint pain or swelling) normal mental status, non-focal exam left chest wall TDC: no drainage, redness, swelling around it Left chest wall ICD: tender to touch on deep palpation. No overlying redness, swelling, warmth, drainage Tender to touch over multiple areas of left chest wall due to rib fracture Results - Laboratory Findings CBC and BMP: 11/01/19 04:55 11/01/19 04:55 PT/INR, D-dimer PT 55.2 sec (11.9-14.5) H 11/01/19 04:55 INR 6.2 (0.9-1.1) H* 11/01/19 04:55 Abnormal lab findings: Abnormal Labs 10/31/19 10/31/19 10/31/19 09:14 09:14 09:14 WBC 24.8 H RBC 3.33 L Hgb 9.8 L Hct 29.7 L RDW 14.9 H Gran % 89.1 H Lymph % (Auto) 2.6 L Gran # 22.06 H Lymph # (Auto) 0.65 L [place] # (Auto) 1.95 H Seg Neutrophils % Lymphocytes % PT INR Sodium 129 L Chloride 91 L BUN 37 H Creatinine 5.6 H* Glucose 134 H Uric Acid Calcium Alkaline Phosphatase 139 H Troponin T 0.42 H* Albumin 2.8 L Globulin 4.0 H Albumin/Globulin Ratio 0.7 L Urine Protein Urine Occult Blood Ur Leukocyte Esterase Urine WBC 10/31/19 10/31/19 10/31/19 09:14 12:03 14:33 WBC RBC Hgb Hct RDW Gran % Lymph % (Auto) Gran # Lymph # (Auto) [place] # (Auto) Seg Neutrophils % Lymphocytes % PT 54.2 H INR 6.0 H* Sodium Chloride BUN Creatinine Glucose Uric Acid Calcium Alkaline Phosphatase Troponin T 0.40 H* Albumin Globulin Albumin/Globulin Ratio Urine Protein 100 A Urine Occult Blood 0.2 A Ur Leukocyte Esterase 500 A Urine WBC 60 H 11/01/19 11/01/19 11/01/19 04:55 04:55 04:55 WBC 27.7 H RBC 3.14 L Hgb 9.3 L Hct 28.5 L RDW 15.2 H Gran % Lymph % (Auto) Gran # Lymph # (Auto) [place] # (Auto) Seg Neutrophils % 88 H Lymphocytes % 7 L PT 55.2 H INR 6.2 H* Sodium Chloride BUN Creatinine 3.4 H Glucose 69 L Uric Acid 2.0 L Calcium 8.5 L Alkaline Phosphatase 135 H Troponin T Albumin 2.3 L Globulin Albumin/Globulin Ratio 0.6 L Urine Protein Urine Occult Blood Ur Leukocyte Esterase Urine WBC Microbiology: Microbiology 10/31/19 Unknown Urine - Clean Void Mid-Stream Urine Culture - Preliminary Staphylococcus aureus 10/31/19 09:47 Blood Blood Culture - Preliminary Gram positive cocci 10/31/19 09:55 Blood Blood Culture - Preliminary Gram positive cocci 10/31/19 15:15 Nose - Both Right and Left MRSA (PCR) - Final MRSA PCR positive Assessment and Plan - Narrative A/P Narrative: A: 1. MRSA bacteremia with in situ CIED [ICD, placed in (2010)] and left chest wall tunneled dialysis cath - sepsis with shock - likely source: nasal carriage of MRSA - Infection of CIED is certain given MRSA bacteremia but also possible pocket site infection given tenderness on exam 2. ESRD on HD: - has an immature forearm AVF and left chest wall tunneled dialysis catheter - no signs of exit site infection Recommendations: - Remove the ICD. Consider transferring to higher level of care with cardiology and cardiothoracic -surgery back up - Remove the tunneled dialysis catheter. Send tip for culture along with a peripheral blood culture - Continue IV Vanc 1.5 gm post each HD, with checking of levels before HD to target Vanc serum levels of 15-20 - repeat blood Cx every other day, until negative - OMAR - continue MRSA decolonization with 2% intranasal mupirocin and 4% below neck whole body CHG (2%) bathing with wipes x 5 days Plan d/w patient, Dr Micky Adams MD Infectious diseases
--- NOTE | 2019-11-01 14:09 | Transfer Summary ---
Transfer Discharge Sum: Prov Patient information: Note initiated : 11/01/19 at 2:06 pm Service Date, if different from initiated Date: [] Patient: Eliezer Mahmood 69 y/o M admitted on 10/31/19 for Dizziness, Weakness. Chief Complaint: Lethargy, fever in ED Date of admission: 10/31/19 14:41 Discharge Date: 11/01/19 Primary care physician: RAFI Corrigan Admitting clinician: Benito Bales Consults: 10/31/19 Consult to Physician [CONS] Stat Comment: Consulting Provider: Benito Bales Reason For Exam: Physician to Consult 10/31/19 12:35 Consult to Physician [CONS] Stat Comment: Patient known to you with ESRD Consulting Provider: Neal Capellan Reason For Exam: Physician to Consult 11/01/19 11:46 Consult to Physician [CONS] Routine Comment: bacterem Consulting Provider: Phu Adams Reason For Exam: Physician to Consult Discharging clinician: Bethanie Steel Transfer Discharge Sum: Diag - Discharge Diagnosis (1) Bacteremia due to methicillin resistant Staphylococcus aureus Status: Acute (2) End stage renal disease on dialysis Status: Chronic (3) ICD (implantable cardioverter-defibrillator) in place Status: Chronic Problem details: Biotronik 540 Lumax HF implanted (4) Anticoagulated on Coumadin Status: Chronic (5) Atrial fibrillation Status: Chronic Problem details: 05/2010 (6) Dilated cardiomyopathy Status: Chronic Problem details: 2005 (7) DMII (diabetes mellitus, type 2) Status: Chronic Problem details: 1994 (8) CHF (congestive heart failure), NYHA class II Status: Chronic (9) Cerebral artery occlusion with cerebral infarction Status: Chronic Transfer Discharge Sum: Med - Medications Active and Home Medications: Home Medications Carvedilol [Coreg] 25 mg PO BID 11/17/15 [History Confirmed 11/01/19] cholecalciferol (vitamin D3) 50 mcg (2,000 unit) capsule 1,000 unit PO QDAY 02/25/16 [History Confirmed 11/01/19] cyanocobalamin (vitamin B-12) 1,000 mcg tablet 500 mcg PO QDAY 02/25/16 [History Confirmed 11/01/19] oxygen 5 units INHALATION QHS 02/25/16 [History Confirmed 10/14/18] ropinirole 0.25 mg tablet 1 mg PO BID tab 02/25/16 [History Confirmed 11/01/19] pen needle, diabetic See Dose Instructions .ROUTE .MEDSUPPLY MDD 45 units 02/26/16 [History Confirmed 10/14/18] insulin aspart U-100 100 unit/mL (3 mL) subcutaneous pen 10 unit SUB-Q ONCE #15 ml 07/08/16 [Rx Confirmed 11/01/19] Allopurinol [Zyloprim] 200 mg PO QAM 10/09/18 [History Confirmed 11/01/19] Atorvastatin [Lipitor] 5 mg PO QPM 10/09/18 [History Confirmed 11/01/19] Bisacodyl [Dulcolax] 10 mg MO DAILYP PRN 10/09/18 [History Confirmed 11/01/19] Docusate Sodium [Colace] 100 mg PO BID 10/09/18 [History Confirmed 11/01/19] Gabapentin [Neurontin] 100 mg PO QDAY 10/09/18 [History Confirmed 11/01/19] Magnesium Hydroxide [Milk of Magnesia] 30 ml PO DAILYP PRN 10/09/18 [History Confirmed 11/01/19] Memantine [Namenda] 5 mg PO BID 10/09/18 [History Confirmed 11/01/19] Na Phos,M-B/Na Phos,Di-Ba [Fleets Adult] 1 dose MO DAILYP PRN 10/09/18 [History Confirmed 11/01/19] Pantoprazole Sodium [Protonix] 20 mg PO QAM 10/14/18 [History Confirmed 11/01/19] insulin detemir U-100 100 unit/mL subcutaneous solution 2 unit SUB-Q BID ml 12/19/18 [History Confirmed 10/31/19] lansoprazole 30 mg delayed release,disintegrating tablet 30 mg PO BID tab 12/19/18 [History Confirmed 10/31/19] misoprostol 100 mcg tablet 100 mcg PO QAM tab 12/19/18 [History Confirmed 10/31/19] multivitamin 1 tab PO QAM 12/19/18 [History Confirmed 10/31/19] sertraline 100 mg tablet 150 mg PO QAM tab 12/19/18 [History Confirmed 11/01/19] Loteprednol Etabonate [Lotemax] 1 drp BOTH EYES BID 04/27/19 [History Confirmed 11/01/19] Melatonin 10 mg PO QHS 04/27/19 [History Confirmed 10/31/19] Warfarin [Coumadin] 2 mg PO WEEKLY 04/27/19 [History Confirmed 11/01/19] clonazePAM [KlonoPIN] 0.25 mg PO QAM 04/27/19 [History Confirmed 10/31/19] hydrOXYzine [Atarax] 25 - 50 mg PO QHS 04/27/19 [History Confirmed 11/01/19] traZODone HCL [Trazodone HCl] 50 mg PO QPM 04/27/19 [History Confirmed 10/31/19] Fexofenadine [Ophelia] 60 mg PO DAILY 04/28/19 [History Confirmed 10/31/19] Furosemide [Lasix] 20 mg PO BID 04/28/19 [History Confirmed 11/01/19] Ophelia Allergy 60 mg PO QAM 11/01/19 [History Confirmed 11/01/19] Artificial Tears 1 drp BOTH EYES Q8HP PRN 11/01/19 [History Confirmed 11/01/19] Artificial Tears 1 drp BOTH EYES QAM 11/01/19 [History Confirmed 11/01/19] High Potency Iron 325 mg PO QDAY 11/01/19 [History Confirmed 11/01/19] Methocarbamol [Robaxin] 750 mg PO Q6HP PRN 11/01/19 [History Confirmed 11/01/19] Sm Cough Drops 1 rekha PO Q2HP PRN 11/01/19 [History Confirmed 11/01/19] Vitamin C 500 mg PO QDAY 11/01/19 [History Confirmed 11/01/19] Warfarin Sodium 3 mg PO 2-3XW 11/01/19 [History Confirmed 11/01/19] hydrOXYzine HCL 25 mg PO BID 11/01/19 [History Confirmed 11/01/19] oxyCODONE HCL/ACETAMINOPHEN 5 - 325 mg PO Q6HP PRN 11/01/19 [History Confirmed 11/01/19] Active Medications Acetaminophen (Tylenol) 650 mg PO Q6HP PRN PRN Reason: PAIN/FEVER > 101 Last Admin: 11/01/19 11:28 Dose: 650 mg Documented by: Albuterol/Ipratropium (Duoneb) 3 ml NEB Q4HP PRN PRN Reason: Shortness Of Breath Allopurinol (Zyloprim) 200 mg PO QAM [facility] Last Admin: 11/01/19 11:27 Dose: 200 mg Documented by: Artificial Tears (Artificial Tears Ophth Drops) 1 gtt OU Q8HP PRN PRN Reason: Dry eyes Atorvastatin Calcium (Lipitor) 5 mg PO QPM [facility] Bisacodyl (Dulcolax) 10 mg MO DAILYP PRN PRN Reason: Constipation Carvedilol (Coreg) 12.5 mg PO BIDCC [facility] Clonazepam (Klonopin) 0.25 mg PO DAILYP PRN PRN Reason: Anxiety Dextrose (Dextrose 50%) 0 ml IV UD PRN PRN Reason: Hypoglycemia Diagnostic Test (Pha) (Accu-Chek) 1 each FS ACHS [facility] Last Admin: 11/01/19 11:47 Dose: 1 each Documented by: Docusate Sodium (Colace) 100 mg PO BID [facility] Last Admin: 11/01/19 11:27 Dose: 100 mg Documented by: Famotidine (Pepcid) 20 mg PO HS [facility] Last Admin: 10/31/19 20:40 Dose: 20 mg Documented by: Furosemide (Lasix) 40 mg PO BID [facility] Last Admin: 11/01/19 11:31 Dose: Not Given Documented by: Gabapentin (Neurontin) 100 mg PO QDAY [facility] Last Admin: 11/01/19 11:27 Dose: 100 mg Documented by: Glucose (Insta-Glucose) 15 gm PO PRN PRN PRN Reason: Hypoglycemia Hydroxyzine HCl (Atarax) 25 - 50 mg PO QHS [facility] Potassium Chloride 40 meq/ (Dextrose) 520 mls @ 130 mls/hr IV UD PRN PRN Reason: Potassium < 3 Magnesium Sulfate (Magnesium Sulfate) 2 gm in 50 mls @ 50 mls/hr IV UD PRN PRN Reason: Magnesium </= 1.6 Phenylephrine HCl 10 mg/ (Sodium Chloride) 500 mls @ 132.471 mls/hr IV DUR [facility]; Protocol Sodium Chloride (Sodium Chloride 0.9%) 250 mls @ 20 mls/hr IV .[id number] [facility] Last Admin: 11/01/19 11:37 Dose: Not Given Documented by: Insulin Glargine (Lantus) 2 unit SQ BID [facility] Last Admin: 11/01/19 11:29 Dose: Not Given Documented by: Insulin Human Lispro (Humalog) 0 unit SQ ACHS [facility]; Protocol Last Admin: 11/01/19 11:48 Dose: Not Given Documented by: Lactulose (Cephulac) 20 gm PO DAILYP PRN PRN Reason: Constipation Melatonin (Melatonin 3mg Tablet) 9 mg PO QHS [facility] Last Admin: 10/31/19 20:40 Dose: 9 mg Documented by: Memantine (Namenda) 5 mg PO BID [facility] Last Admin: 11/01/19 11:35 Dose: 5 mg Documented by: Methocarbamol (Robaxin) 750 mg PO Q6HP PRN PRN Reason: Spasms Misoprostol (Cytotec) 100 mcg PO QAM [facility] Last Admin: 11/01/19 11:36 Dose: 100 mcg Documented by: Mupirocin (Bactroban Oint 2%) 1 dose NARES BID [facility] Last Admin: 11/01/19 09:00 Dose: 1 dose Documented by: Ondansetron HCl (Zofran) 4 mg IV Q4HP PRN PRN Reason: Nausea And Vomiting Pantoprazole Sodium (Protonix) 40 mg PO BIDAC [facility] Last Admin: 11/01/19 11:27 Dose: 40 mg Documented by: Loteprednol Etabonate [Lotemax] Eye Drops 1 dose OU QID [facility] Last Admin: 11/01/19 13:37 Dose: Not Given Documented by: Nepafenac [Ilevro] (Eye Drops) 1 dose OU QAM [facility] Last Admin: 11/01/19 11:31 Dose: Not Given Documented by: Polyethylene Glycol (Miralax) 17 gm PO DAILYP PRN PRN Reason: Constipation Potassium Chloride (Kdur) 40 meq PO UD PRN PRN Reason: Potssium is 3-3.5 Potassium Chloride (Kdur) 40 meq PO UD PRN PRN Reason: Potassium < 3 Ropinirole HCl (Requip) 1 mg PO BID [facility] Last Admin: 11/01/19 11:35 Dose: 1 mg Documented by: Senna (Senokot) 2 tab PO DAILYP PRN PRN Reason: Constipation Sertraline HCl (Zoloft) 150 mg PO QHS [facility] Last Admin: 10/31/19 20:39 Dose: 150 mg Documented by: Sodium Chloride (Saline Flush) 10 ml IV Q8 [facility] Last Admin: 11/01/19 13:37 Dose: 10 ml Documented by: Trazodone HCl (Desyrel) 50 mg PO QPM [facility] Last Admin: 10/31/19 20:40 Dose: 50 mg Documented by: Vancomycin HCl (Vancomycin Per Pharmacy) 1 order IV UD [facility]; Protocol Warfarin Sodium (Coumadin Per Pharmacy) 1 order PO UD [facility] Transfer Discharge Sum: Hosp Hospital course: Mr. Mahmood is a 69 year old M sent in from [facility] for increased weakness lethargy following for the past time. Also report of confusion? Have no idea as patient is a poor historian. And no chart notes from the facility. Patient does not feel like he has been particularly weaker than usual but does admit to falling lately and could not give me any details surrounding that. Is found to be febrile here but denies fevers. Chest x-ray with suspected infiltrate left lower lobe patient denies coughing. States he has been having some urinary issues for which he seen his urologist but could not give me the name. Denies coughing. In the ED lactate was okay. He was hypotensive in the 80s initially was given a small fluid bolus with good response. He had an elevated troponin which he had chronically but today it was worse than usual. He denies any chest pain and EKG no acute findings. Repeat troponin was slightly decreased. 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 Attempting to get a urine sample. Patient oriented but drowsy. Old med list states laxatives but we do not have verification of current home medications yet CT brain no acute findings, moderate atrophy and chronic ischemic changes and remote left cerebellar and occipital lobe infarcts Chest x-ray with a small vague left basilar infiltrate developing (formal report mentions near complete resolution of previous infiltrate). 11/01 Still appears drowsy but states he feels better. Blood pressure soft but not needing any vasopressors overnight. Leukocytosis worsened today but no bandemia. Last fever was 101.3 yesterday 8 AM. Blood cultures both sets growing gram- positive cocci. Patient has history of MRSA in the nares. He is alert and oriented. Verigene assay confirms MRSA bacteremia, formal identification and sensitivities pending. Remains on vancomycin. Seen by consultation by Dr. Adams for infectious disease; with MRSA bloodstream infection in the setting of ICD and tunneled catheter, presumptive hardware infection is assumed and patient will need explantation of ICD as well as tunneled catheter. His fistula is not yet matured. Will likely need temporary dialysis catheter. Spoke with Dr. Kingston at [facility] in [place], who is excepted the patient in transfer for consultation with cardiology, nephrology and infectious disease. - Time Spent with Patient Total time spent providing and/or coordinating transfer services: Greater than 30 minutes (40 minutes) Transfer Discharge Sum: Exam - Constitutional Vitals: Vital Signs Temp Pulse Pulse Resp BP BP BP 11/01/19 14:00 20 91/53 11/01/19 13:30 20 91/56 11/01/19 13:00 20 93/54 11/01/19 12:00 99 F 19 108/62 11/01/19 10:01 17 97/59 11/01/19 08:00 98.2 F 18 93/53 11/01/19 05:58 98.2 F 11/01/19 04:00 80 19 89/48 11/01/19 03:32 80 20 82/51 11/01/19 03:31 78 18 11/01/19 03:08 80 19 76/51 11/01/19 03:07 80 20 77/48 11/01/19 03:00 81 18 78/49 11/01/19 02:30 24 H 97/58 11/01/19 02:00 80 20 87/58 11/01/19 01:30 80 23 H 94/59 11/01/19 01:00 82 19 84/52 11/01/19 00:30 21 87/53 11/01/19 00:00 98.6 F 80 21 97/50 10/31/19 23:45 89 16 88/52 10/31/19 23:03 80 17 79/48 10/31/19 23:00 82 19 78/48 10/31/19 22:04 80 22 10/31/19 22:00 80 18 75/51 10/31/19 21:11 82/50 75/40 10/31/19 21:05 80 21 81/48 10/31/19 21:03 80 19 73/45 10/31/19 21:01 81 21 76/47 10/31/19 21:00 80 15 67/50 10/31/19 20:45 80 23 H 85/57 02/26/20 20:41 80 22 10/31/19 20:30 101.3 F H 80 20 90/53 10/31/19 20:15 80 25 H 97/56 10/31/19 20:00 22 108/53 10/31/19 19:55 98.2 F 82 96/76 10/31/19 19:46 82 22 96/76 10/31/19 19:31 82 23 H 101/57 10/31/19 19:17 82 105/52 10/31/19 19:16 19 105/51 10/31/19 19:01 80 99/57 10/31/19 19:00 22 99/57 10/31/19 18:48 80 93/55 10/31/19 18:47 79 22 93/55 10/31/19 18:46 75 34 H 66/33 10/31/19 18:31 80 20 101/57 10/31/19 18:30 94 H 96/70 10/31/19 18:16 80 19 96/70 10/31/19 18:12 79 20 10/31/19 18:10 80 102/72 10/31/19 18:01 79 20 102/72 10/31/19 17:46 80 18 109/50 10/31/19 17:32 80 116/68 10/31/19 17:30 81 19 116/68 10/31/19 17:15 80 17 118/69 10/31/19 17:02 82 113/72 10/31/19 17:01 81 21 113/72 10/31/19 16:47 80 117/71 10/31/19 16:45 80 20 117/71 10/31/19 16:31 97.7 F 80 108/72 10/31/19 16:30 80 17 108/72 10/31/19 16:15 80 18 96/60 10/31/19 16:00 80 18 93/61 10/31/19 15:45 80 16 93/59 10/31/19 15:30 80 19 96/59 10/31/19 15:15 80 19 100/62 10/31/19 15:00 100.5 F H 81 18 103/65 10/31/19 14:59 80 119/65 10/31/19 14:54 97.7 F 80 20 103/65 02/26/20 14:41 98.0 F 80 20 103/65 10/31/19 14:30 18 87/60 10/31/19 14:16 16 92/57 Pulse Ox 11/01/19 14:00 90 11/01/19 13:30 90 11/01/19 13:00 90 11/01/19 12:00 92 11/01/19 10:01 93 11/01/19 08:00 98 11/01/19 05:58 11/01/19 04:00 93 11/01/19 03:32 96 11/01/19 03:31 96 11/01/19 03:08 96 11/01/19 03:07 96 11/01/19 03:00 95 11/01/19 02:30 11/01/19 02:00 98 11/01/19 01:30 98 11/01/19 01:00 98 11/01/19 00:30 11/01/19 00:00 96 10/31/19 23:45 95 10/31/19 23:03 97 10/31/19 23:00 98 10/31/19 22:04 10/31/19 22:00 97 10/31/19 21:11 10/31/19 21:05 93 10/31/19 21:03 95 10/31/19 21:01 88 L 10/31/19 21:00 86 L 10/31/19 20:45 90 10/31/19 20:41 92 10/31/19 20:30 93 10/31/19 20:15 91 10/31/19 20:00 10/31/19 19:55 10/31/19 19:46 10/31/19 19:31 10/31/19 19:17 10/31/19 19:16 10/31/19 19:01 10/31/19 19:00 10/31/19 18:48 10/31/19 18:47 99 10/31/19 18:46 91 10/31/19 18:31 98 10/31/19 18:30 10/31/19 18:16 100 10/31/19 18:12 99 10/31/19 18:10 10/31/19 18:01 99 10/31/19 17:46 98 10/31/19 17:32 10/31/19 17:30 96 10/31/19 17:15 97 10/31/19 17:02 10/31/19 17:01 96 10/31/19 16:47 10/31/19 16:45 97 10/31/19 16:31 10/31/19 16:30 96 10/31/19 16:15 92 10/31/19 16:00 92 10/31/19 15:45 93 10/31/19 15:30 91 10/31/19 15:15 92 10/31/19 15:00 93 10/31/19 14:59 94 10/31/19 14:54 93 10/31/19 14:41 94 10/31/19 14:30 10/31/19 14:16 Intake and Output 11/01/19 11/01/19 11/01/19 05:59 13:59 21:59 Intake Total 420 50 Output Total 140 Balance 280 50 Intake: IV 300 50 Sodium Chloride 0.9% 250 ml @ 250 Wide Open IV [facility] Rx#: [id number] Zosyn 2.25 gm In Dextrose 5% in 50 50 Water 50 ml @ 100 mls/hr IV Q8H [facility] Rx#:[id number] Oral 120 Output: Urine Catheter Amount 140 Other: Meal Lunch Percent of Meal Consumed Refused Feeding Ability Assist with Tray Set Up Urine Appearance Cloudy Purulent Urine Color Dark Yellow Additional comments: General: In bed, nontoxic-appearing Respiratory: Unlabored Cardiovascular: In atrial fibrillation Skin: Areas overlying tunneled catheter and ICD without erythema Neuro: Alert, oriented to self, situation. Had to reiterate reason for transfer as he seems to have some trouble retaining information. Transfer Discharge Sum: Data Procedures and tests throughout hospitalization: Pending Orders 10/31/19 Consult to Physician [CONS] Stat Urine Culture Stat 10/31/19 09:55 Blood Culture Stat 10/31/19 12:35 Consult to Physician [CONS] Stat 10/31/19 13:44 Resuscitation Status Routine 10/31/19 14:54 0.9 % Sodium Chloride [Saline Flush] 10 ml IV Q8 Acetaminophen [Tylenol] 650 mg PO Q6HP PRN Dextrose 50% See Dose Instructions IV UD PRN Dextrose [Insta-Glucose] 15 gm PO PRN PRN Ipratropium/Albuterol [Duoneb] 3 ml NEB Q4HP PRN Lactulose [Cephulac] 20 gm PO DAILYP PRN Magnesium Sulfate 2 gm in 50 ml IV UD Ondansetron [Zofran] 4 mg IV Q4HP PRN Polyethylene Glycol 3350 [Miralax] 17 gm PO DAILYP PRN Potassium Chloride 40 meq Dextrose 5% in Water 500 ml IV UD Potassium Chloride [Kdur] 40 meq PO UD PRN Potassium Chloride [Kdur] 40 meq PO UD PRN Sennosides [Senokot] 2 tab PO DAILYP PRN Vancomycin Per Pharmacy 1 order IV UD Warfarin Per Pharmacy [Coumadin Per Pharmacy] 1 order PO UD clonazePAM [KlonoPIN] 0.25 mg PO DAILYP PRN 10/31/19 14:54 Admit as Inpatient Routine 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 Elevate head of bed .ROUTINE IV Insertion/Management QSHIFT Intake and Output Q4H Notify Provider .routine Up to chair PRN Weight Monitoring QHS Sputum Culture and Gram Stain Urgent RD to Adjust Diet/Supplements as Needed Routine Occupational Therapy Eval & Tx DAILY Physical Therapy Eval & Tx QD-BID Incentive Spirometry Assess/Tx Q2HWA Nebulizer management .Routine Pulse Oximetry .ROUTINE 10/31/19 14:55 Hemodialysis Treatment .ROUTINE Renal/Consistent Carbohydrate Diet 10/31/19 16:51 MRSA Screen PCR Stat 10/31/19 17:00 Accu-Chek 1 each FS ACHS Insulin Lispro [HumaLOG] See Dose Instructions SQ ACHS Pantoprazole [Protonix] 40 mg PO BIDAC Patients Own Medication 1 dose OU QID 10/31/19 17:14 MRSA decolonization - Hospital Protocol ONCE 10/31/19 21:00 Docusate Sodium [Colace] 100 mg PO BID Famotidine [Pepcid] 20 mg PO HS Furosemide [Lasix] 40 mg PO BID Insulin Glargine, Human [Lantus] 2 unit SQ BID Melatonin [Melatonin 3Mg Tablet] 9 mg PO QHS Sertraline [Zoloft] 150 mg PO QHS traZODone HCL [Desyrel] 50 mg PO QPM 10/31/19 22:55 Wound Nurse Referral .Routine 10/31/19 23:20 Indwelling Urinary Catheter CONT 10/31/19 23:30 0.9 % Sodium Chloride [Sodium Chloride 0.9%] 250 ml IV 20 mls/hr Phenylephrine [Neosynephrine/Vazculep] 10 mg 0.9 % Sodium Chloride [Sodium Chloride 0.9%] 499 ml IV DUR 11/01/19 06:33 Chlorhexidine bathing DAILY 11/01/19 07:42 Bisacodyl [Dulcolax] 10 mg MO DAILYP PRN Methocarbamol [Robaxin] 750 mg PO Q6HP PRN Polyvinyl Alcohol Ophth Drops [Artificial Tears Ophth Drops] 1 gtt OU Q8HP PRN 11/01/19 07:54 PEP Therapy/Acapella .ROUTINE 11/01/19 09:00 Allopurinol [Zyloprim] 200 mg PO QAM Gabapentin [Neurontin] 100 mg PO QDAY Memantine [Namenda] 5 mg PO BID Misoprostol [Cytotec] 100 mcg PO QAM Mupirocin Oint 2% [Bactroban Oint 2%] 1 dose NARES BID Patients Own Medication 1 dose OU QAM rOPINIRole [Requip] 1 mg PO BID 11/01/19 09:46 Hemodialysis Treatment .ROUTINE 11/01/19 11:46 Consult to Physician [CONS] Routine 11/01/19 17:30 Carvedilol [Coreg] 12.5 mg PO BIDCC 11/01/19 21:00 Atorvastatin [Lipitor] 5 mg PO QPM hydrOXYzine [Atarax] 25 - 50 mg PO QHS - Impressions Ordering Physician: Devin Brar M.D. Date of Service: 10/31/19 Procedure(s): XR chest 1V portable CLINICAL INFORMATION: CP/dyspnea COMPARISON: 10/14/2018 IMPRESSION: Mild cardiomegaly and possible developing left basilar infiltrate Ordering Physician: Benito Bales D.O. Date of Service: 11/01/19 Procedure(s): XR chest 1V portable CLINICAL INFORMATION: f/u LLL infiltrate COMPARISON: 10/31/2019 IMPRESSION: Near-complete resolution left basilar infiltrate Ordering Physician: Devin Brar M.D. Date of Service: 10/31/19 Procedure(s): CT head/brain wo con CLINICAL INFORMATION: Trauma COMPARISON: Head CT 10/29/2019. IMPRESSION: No intracerebral hemorrhage or other acute posttraumatic change. Moderate atrophy, chronic ischemic changes in cerebral white matter and remote left cerebellar and occipital lobe infarcts all stable. Transfer Discharge Sum: A/P - Problem Maintenance (1) Bacteremia due to methicillin resistant Staphylococcus aureus Status: Acute (2) End stage renal disease on dialysis Status: Chronic (3) ICD (implantable cardioverter-defibrillator) in place Status: Chronic Comment: Biotronik 540 Lumax HF implanted (4) Anticoagulated on Coumadin Status: Chronic (5) Atrial fibrillation Status: Chronic Comment: 05/2010 Qualifiers: Atrial fibrillation type: chronic (6) Dilated cardiomyopathy Status: Chronic Comment: 2005 (7) DMII (diabetes mellitus, type 2) Status: Chronic Comment: 1994 Qualifiers: Diabetes mellitus residential insulin use: with residential use Diabetes mellitus complication status: with kidney complications Diabetes mellitus comp lication detail: with chronic kidney disease Chronic kidney disease stage: on chronic dialysis Qualified Code(s): E11.22 - Type 2 diabetes mellitus with diabetic chronic kidney disease; N18.6 - End stage renal disease; Z79.4 - long-term (current) use of insulin; Z99.2 - Dependence on renal dialysis (8) CHF (congestive heart failure), NYHA class II Status: Chronic Qualifiers: Congestive heart failure type: systolic (9) Cerebral artery occlusion with cerebral infarction Status: Chronic - Plan Functional capacity at transfer: uses cane/walker Overall status at transfer: patient is not back to baseline Disposition: [facility] Quality Measure Queries - VTE Deep Vein Thrombosis/Pulmonary Embolism Present on Admission: No
[2019-11-01] MEDS ORDERED: hydrOXYzine 25 MG TABLET PO SCH (21:00)
[2019-11-01] MEDS ORDERED: ATORVASTATIN 20 MG TABLET PO SCH (21:00)
== END 2019-11-01 15:16 | disposition short-term general hospital (02) | DRG 871 ==
LOC: ED 08:35 → ICU 14:41
PROVIDERS: ADMIT Internal Medicine; ATTEND Internal Medicine